=== PATIENT | male | born 1985 | race Caucasian/White ===

== ENCOUNTER → 2018-05-15 | Outpatient (REF) | payer OTHER ==
[2018-05-16 00:33] LABS: CHLAMYDIA DNA AMPLIFICATION POSITIVE (NEGATIVE); GC DNA AMPLIFICATION NEGATIVE (NEGATIVE)
== END ==
LOC: M LAB REF 09:39
DX: Z11.3 Encounter for screening for infections with a predominantly sexual mode of transmission (principal)

== ENCOUNTER → 2018-06-01 | Outpatient (REF) | payer OTHER ==
[2018-06-01 22:10] LABS: APPEARANCE, URINE CLEAR (CLEAR); BACTERIA, URINE AUTO NEGATIVE (NEGATIVE); BILIRUBIN, URINE AUTO NEGATIVE (NEGATIVE); BLOOD, URINE BLOOD NEGATIVE (NEGATIVE); COLOR, URINE YELLOW (YELLOW); GLUCOSE, URINE (UA) AUTO NEGATIVE (NEGATIVE); KETONE, URINE AUTO NEGATIVE (NEGATIVE); LEUKOCYTE ESTERASE, URINE AUTO NEGATIVE (NEGATIVE); MUCUS, URINE SMALL (NEGATIVE); NITRITE, URINE AUTO NEGATIVE (NEGATIVE); PROTEIN, URINE AUTO NEGATIVE (NEGATIVE); RBC, URINE AUTO 2 /HPF (0-3); SPECIFIC GRAVITY URINE AUTO 1.011 (1.002-1.035); SQUAMOUS EPITHELIAL CELL UR AU 0 /HPF (0-6); UROBILINOGEN, URINE AUTO 0.2 mg/dL (0.0-2.0); WBC, URINE AUTO 3 /HPF (0-3)
[2018-06-01 23:15] LABS: CHLAMYDIA DNA AMPLIFICATION NEGATIVE (NEGATIVE); GC DNA AMPLIFICATION NEGATIVE (NEGATIVE)
== END ==
LOC: M LAB REF 10:11
DX: N39.0 Urinary tract infection, site not specified (principal)

== ENCOUNTER → 2018-06-23 | Outpatient (CLI) | payer OTHER | LOC: M RAD 14:27 | DX: N50.819 Testicular pain, unspecified (principal); N43.3 Hydrocele, unspecified | CPT/HCPCS: 76870 ==

== ENCOUNTER → 2018-06-30 | Outpatient (REF) | payer OTHER ==
[2018-06-30 13:34] LABS: APPEARANCE, URINE CLEAR (CLEAR); BACTERIA, URINE AUTO 1+ (NEGATIVE); BILIRUBIN, URINE AUTO NEGATIVE (NEGATIVE); BLOOD, URINE BLOOD NEGATIVE (NEGATIVE); COLOR, URINE YELLOW (YELLOW); GLUCOSE, URINE (UA) AUTO NEGATIVE (NEGATIVE); KETONE, URINE AUTO NEGATIVE (NEGATIVE); LEUKOCYTE ESTERASE, URINE AUTO NEGATIVE (NEGATIVE); NITRITE, URINE AUTO NEGATIVE (NEGATIVE); PROTEIN, URINE AUTO NEGATIVE (NEGATIVE); RBC, URINE AUTO 0 /HPF (0-3); SQUAMOUS EPITHELIAL CELL UR AU 0 /HPF (0-6); UROBILINOGEN, URINE AUTO 0.2 mg/dL (0.0-2.0); WBC, URINE AUTO 0 /HPF (0-3)
[2018-06-30 14:41] LABS: CHLAMYDIA DNA AMPLIFICATION NEGATIVE (NEGATIVE); GC DNA AMPLIFICATION NEGATIVE (NEGATIVE)
== END ==
LOC: M SMT 13:03
DX: N50.819 Testicular pain, unspecified (principal)
CPT/HCPCS: 81001

== ENCOUNTER → 2018-07-28 | Outpatient (CLI) | payer OTHER ==
[~2018-07-28] MED LIST: ISOVUE-370 76% 100ML VIAL (Q9967) As Ordered
== END ==
LOC: M RAD 09:44
DX: N26.1 Atrophy of kidney (terminal) (principal); N50.812 Left testicular pain
CPT/HCPCS: Q9967

== ENCOUNTER → 2018-10-31 | Outpatient (CLI) | payer OTHER ==
--- NOTE | 2018-10-31 16:32 | REP ---
PARTIAL LUMBAR SPINE, THREE VIEWS:HISTORY: Lumbago. There is no fracture or subluxation. The L4-5 and L5-S1 intervertebral discs are decreased in height consistent with disc degeneration. IMPRESSION:Degenerative change as described above. Electronically Signed by Patrice Zheng MD 10/31/2018 04:36 P
== END ==
LOC: M RAD 12:41
PROVIDERS: ATTEND Anesthesiology
DX: M51.37 Other intervertebral disc degeneration, lumbosacral region (principal)

== ENCOUNTER → 2018-10-31 | Outpatient (CLI) | payer OTHER ==
--- NOTE | 2018-11-14 02:02 | ECWPNPC ---
PATIENT NAME: QUIN LIMA : 1985 GENDER: MALE VISIT DATE: 10/31/2018 DISCHARGE DATE: 10/31/18 1201 VISIT LOCKED DATE TIME: PHYSICIAN: DUY HANCOCK MD RESOURCE: DUY HANCOCK MD REASON FOR APPOINTMENT 1. TESTICULAR PAIN REFER FROM UROLOGY HISTORY OF PRESENT ILLNESS NEW PATIENT CONSULT: WHEN DID YOUR PAIN FIRST START? . BRIEFLY DESCRIBE HOW YOUR PAIN STARTED? . HOW DOES YOUR PAIN CHANGE WITH TIME? . DOES YOUR PAIN AWAKEN YOU FROM SLEEP? . HOW MANY HOURS OF SLEEP DO YOU NORMALLY GET? . ANY DIAGNOSTIC TESTING? . FACILITY WHERE TESTS WERE DONE? ____. PAIN TREATMENT TREATMENT YES CANCER HAVE YOU EVER HAD ANY TYPE OF CANCER?NO NO. PAIN SCREENING: PATIENT HAS A COMPLAINT OF ACUTE OR CHRONIC PAIN :YES 32 YEAR OLD MALE PATIENT WITH A HISTORY OF CHRONIC LOW BACK PAIN. THE PATIENT DESCRIBES THE PAIN ACHING, BURNING, SHARP, STABBING, TENDER, SORE, SHOOTING, AND CONTINUOUS WITH A PAIN SCORE OF 3-10/10 DEPENDING ON PHYSICAL ACTIVITY. THE PATIENT SAYS THAT HIS PAIN STARTS IN HIS LOW BACK AND RADIATES DOWN HIS LEFT LEG AND INTO HIS LEFT TESTICLE. THE PATIENT SAYS THAT HE HAS HAD THE PAIN IN HIS BACK FOR YEARS, BUT THE PAIN IN HIS LEG AND TESTICLE STARTED ABOUT 6 MONTHS AGO. THE PATIENT SAYS HE CURRENTLY USES IBUPROFEN TO AID IN PAIN RELIEF. PATIENT DENIES UNEXPLAINABLE WEIGHT LOSS, FEVER, CHILLS, NEW CHANGES ON HIS URINARY OR BOWEL CONTROL. FALL RISK SCREENING: SCREENING : NO FALLS IN THE PAST YEAR. GREEN INVENTORY: QUESTIONNAIRE ASSESSEDTBD SCORE VALUE CALCULATED TBD CURRENT MEDICATIONS TAKING IBUPROFEN 800 MG TABLET 1 TABLET WITH FOOD OR MILK NEEDED ORALLY THREE TIMES A DAY TAKING MULTIVITAMIN ADULT - TABLET ORALLY TAKING SILDENAFIL CITRATE 100 MG TABLET 1 TABLET NEEDED ORALLY ONCE A DAY MEDICATION LIST REVIEWED AND RECONCILED WITH THE PATIENT PAST MEDICAL HISTORY ACUTE PROSTATITIS LEFT SIDE 2 CYSTS TESTICAL HX HEART MURMUR A CHILD ALLERGIES SULFA (FOR ALLERGY USE ONLY): ANAPHYLAXIS - ALLERGY NEOSPORIN: ANAPHYLAXIS - ALLERGY SURGICAL HISTORY TOOTH EXTRACTION 07/2018 FAMILY HISTORY FATHER: ALIVE 51 YRS, HYPERTENSION MOTHER: ALIVE 54 YRS, HYPERTENSION PATERNAL GRAND FATHER: , LUNG CANCER PATERNAL GRAND MOTHER: , LUNG CANCER MATERNAL GRAND FATHER: ALIVE, PROSTATE CA MATERNAL GRAND MOTHER: 60'S YRS, DIABETES 1 SISTER(S) - HEALTHY. MATERNAL GRANDFATHER POSITIVE FOR PROSTATE CA. NO OTHER KNOWN FAMILY HISTORY OF ANY UROLOGICALLY RELATED DISEASES\/CANCERS. SOCIAL HISTORY GENERAL: TOBACCO USE ARE YOU A:FORMER SMOKER QUIT 4 YEARS AGO LUNG CANCER SCREENING SMOKING STATUS:FORMER SMOKER IS THE PATIENT BETWEEN THE AGE OF 55 AND 77?NO ALCOHOL SCREENING DID YOU HAVE A DRINK CONTAINING ALCOHOL IN THE PAST YEAR?YES HOW OFTEN DID YOU HAVE A DRINK CONTAINING ALCOHOL IN THE PAST YEAR?TWO TO FOUR TIMES A MONTH (2 POINTS) HOW MANY DRINKS DID YOU HAVE ON A TYPICAL DAY WHEN YOU WERE DRINKING IN THE PAST YEAR?3 OR 4 (1 POINT) HOW OFTEN DID YOU HAVE SIX OR MORE DRINKS ON ONE OCCASION IN THE PAST YEAR?NEVER (0 POINTS) POINTS3 INTERPRETATIONNEGATIVE RECREATIONAL DRUG USE DRUG USE?YES PT SMOKEW MARYJUANA ON A DAILY BASIS AND THC OIL HOW OFTEN AND HOW MUCH? 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 DIET: REGULAR. EXERCISE: DAILY. MARITAL STATUS: SINGLE. OTHERS AT HOME: NONE. MALE 6 MONTH RISK ASSESSMENT FOR STD MONOGOMOUS?YES PAIN CLINIC PFS, CLERGY, PUBLIC HEALTH REFERRALS PFS REFERRAL NEEDED?NO CLERGY REFERRAL NEEDED?NO PUBLIC HEALTH REFERRAL NEEDED?NO WAS THE PROVIDER NOTIFIED OF ANY PERTINENT INFO?NO HAS THE PATIENT BEEN EDUCATED REGARDING HIS/HER PLAN OF CARE?YES HAS THE PATIENT BEEN EDUCATED REGARDING PAIN, THE RISK FOR PAIN, THE IMPORTANCE OF EFFECTIVE PAIN MANAGEMENT, AND THE PAIN ASSESSMENT PROCESS?YES HOUSING: RENTS APARTMENT. ADVANCE DIRECTIVE ADVANCE DIRECTIVE DISCUSSED WITH PATIENT:YES HOSPITALIZATION/MAJOR DIAGNOSTIC PROCEDURE PNEUMONIA CHILD REVIEW OF SYSTEMS REVIEWED BY: PROVIDER: DUY HANCOCK MD . CONSTITUTIONAL: ANY CHANGE IN YOUR MEDICAL CONDITION? NO . CHILLS NO . FEVER NO . INFECTION: DO YOU HAVE NEW INFECTIONS? TREATED BACK IN FOR SEXUAL TRANSMITTED DISEASE/ SINCE TESTED NEGATIVE . DO YOU HAVE HISTORY OF MRSA? NO . MUSCULOSKELETAL: ANY NEW PATTERNS OF PAIN OR NUMBNESS? YES PAIN THAT WRAPS AROUND LEFT LEG AND ALSO HAS PAIN IN BASE OF BACK THAT RADIATES UP THE BACK . SYTEMIC LUPUS NO . GASTROENTEROLOGY: ANY NEW CHANGE IN BOWEL CONTROL? NO . BARRETTS ESOPHAGUS NO . CIRRHOSIS NO . HEPATITIS NO . LIVER FAILURE NO . ACID REFLUX NO . UNEXPLAINED WEIGHT LOSS NO . GENITOURINARY: ANY NEW CHANGE IN BLADDER CONTROL? AT TIMES HAS DIFFICULTY WITH URINATION . IS THERE A CHANCE YOU COULD BE ? NO . HEMATOLOGY/LYMPH: DO YOU TAKE ANY BLOOD THINNERS? (FOR EXAMPLE- COUMADIN, PLAVIX, AGGRENOX, PLATEL, PRADAXA, OR XARELTO) NO . WHEN WAS YOUR LAST DOSE? DATE: TIME: . LOW PLATELET COUNT NO . SICKLE CELL DISEASE NO . VON WILLIEBRANDS NO . FACTOR V LEIDEN NO . THALLASEMIA NO . ANEMIA NO . EASY BRUISING NO . NEUROLOGY: HAVE YOU FALLEN IN THE PAST 12 MONTHS? NO . ANY NEW EXTREMITY NUMBNESS OR WEAKNESS? NO . HEAD INJURY NO . DEMENTIA NO . CEREBRAL PALSY NO . MULTIPLE SCLEROSIS NO . DIZZINESS NO . HEADACHE NO . STROKES NO . VERTIGO NO . CARDIOLOGY: DO YOU HAVE A PACEMAKER OR DEFIBRILLATOR? NO . ANGINA NO . HEART ATTACK NO . HEART SURGERY NO . CONGESTIVE HEART FAILURE/FLUID OVERLOAD NO . CHEST PAIN NO . HIGH BLOOD PRESSURE NO . IRREGULAR HEART BEAT NO . RESPIRATORY: HAVE YOU BEEN SICK IN THE PAST WEEK? NO . FEVER NO . FLU LIKE SYMPTOMS? NO . CPAP NO . BYPAP NO . ASTHMA NO . EMPHYSEMA NO . CHRONIC LUNG DISEASES NO . SHORTNESS OF BREATH ON EXERTION NO . DO YOU USE ANY TYPE OF TOBACCO (SMOKE, SMOKELESS, CHEW)? NO . COUGH NO . SNORING NO . INTEGUMENTARY: DO YOU HAVE ANY RASHES OR OPEN SORES? NO . ALLERGIC/IMMUNO: ARE YOU ALLERGIC TO IV DYE? NO . ANY NEW ALLERGIES? NO . PSYCHIATRIC: DO YOU HAVE THOUGHTS OF HURTING YOURSELF OR SOMEONE ELSE? NO . ARE YOU ABUSED, NEGLECTED, OR IN AN UNSAFE ENVIRONMENT? NO . ENDOCRINOLOGY: ARE YOU DIABETIC? NO . THYROID DISORDER NO . OTHER: DO YOU NEED ANY PRESCRIPTIONS? NO . IF YES, PLEASE LIST: ____ . ANY NEW PROBLEMS WITH YOUR MEDICATIONS? NO . WHEN DID YOU LAST EAT? ____ . WHEN DID YOU LAST DRINK? ____ . WHAT DID YOU LAST DRINK? ____ . NAME OF PERSON DRIVING YOU HOME? ____ . DO YOU HAVE ANY OTHER QUESTIONS OR CONCERNS NO . VITAL SIGNS WT 171 LBS, HT 6', BMI 23.19 INDEX, BP 139/74 MM HG, HR 71 /MIN, RR 16 /MIN, TEMP 97.7 F, OXYGEN SAT % 96%, NA INITIALS SC 10:35, REVIEWED BY: KG. EXAMINATION GENERAL EXAMINATION: PATIENT IS ALERT O X 3 AND COOPERATIVE. LUNGS CLEAR, TO AUSCULTATION. HEART: NO MURMURS OR GALLOPS; FACIAL CRANIAL NERVES ARE GROSSLY NORMAL. GOOD SYMMETRY OF FACIAL MUSCLE MOVEMENT. NORMAL VISUAL JARQUIN. NORMAL GAIT. LEFT LEG IS WEAKER AT FLEXION. STRAIGHT LEG RAISE OF THE LEFT LEG IS POSITIVE AT 45 DEGREES FOR RADICULOPATHY. PRESENCE OF TRIGGER POINTS AND BANDS OF TISSUE WITH RESTRICTION OF MOVEMENT OF THE BACK. ASSESSMENTS MYALGIA, OTHER SITE - M79.18 (PRIMARY) LUMBAR RADICULOPATHY - M54.16 TREATMENT MYALGIA, OTHER SITE CLINICAL NOTES: WE DISCUSSED SEVERAL ISSUES WITH MR. LIMA'S PAIN MANAGEMENT CASE. I WILL ORDER A LUMBAR X-RAY TO GET A BETTER IDEA OF WHERE THE PATIENT'S PAIN COULD BE COMING FROM. I WOULD LIKE THE PATIENT TO START GABAPENTIN FOR THE NEUROPATHIC PAIN. THE PATIENT WILL FOLLOW UP WITH A NURSE PRACTITIONER IN 1 WEEK TO REVIEW THE RESULTS OF THE X-RAY. INSTRUCTIONS WERE GIVEN, QUESTIONS WERE ANSWERED, PATIENT REPORTS UNDERSTANDING AND AGREES WITH THE PLAN. I, LOVE MOFFETT, DOCUMENTED THE ABOVE INFORMATION ACTING A SCRIBE FOR DR. HANCOCK. I HAVE REVIEWED THE ABOVE DOCUMENT, WRITTEN BY LOVE CHAND AND I VERIFY THAT IT IS ACCURATE. DEAR DR. MCDANIELS:THANK YOU FOR YOUR KIND REFERRAL OF MR. LIMA. IF YOU WANT TO DISCUSS HIS CASE WITH ME PLEASE CALL ME AT THE PAIN CENTER AT [phone]. SINCERELY,DUY HANCOCK, [facility] . OTHERS START GABAPENTIN CAPSULE, 300 MG, 1 CAPSULE, ORALLY FOR PAIN, THREE TIMES A DAY, 30 DAY(S), 90 CAPSULE, REFILLS 1 PREVENTIVE MEDICINE PAIN CLINIC TEACHING: MEDICATIONS GABAPENTIN HANDOUT PRINTED, REVIEWED AND GIVEN TO PT. EM. PROCEDURE CODES FA211 ESTABILISHED PATIENT [facility] FACILITY CHARGE G8782 CURRENT MEDS W/DOSAGES DOCUMENTED G9368 PAIN ASSESS POS TOOL F/U PLAN DOC DISPOSITION & COMMUNICATION FOLLOW UP 1 WEEK (REASON: WITH SIOBHAN LOW BACK- REVIEW XRAY) ELECTRONICALLY SIGNED BY DUY HANCOCK MD, MD ON 11/13/2018 AT 09:16 AM EDT DISCLAIMER : THIS IS A VISIT SUMMARY EXTRACTED FROM THE [employer] CHART. IT IS NOT A COPY OF THE [employer] PROGRESS NOTE. SHAW
== END ==
LOC: M PAIN 10:45
PROVIDERS: ATTEND Anesthesiology
DX: M79.18 Myalgia, other site (principal); M54.16 Radiculopathy, lumbar region; N50.819 Testicular pain, unspecified; Z79.1 Long term (current) use of non-steroidal anti-inflammatories (NSAID); Z79.899 Other long term (current) drug therapy; Z88.2 Allergy status to sulfonamides; Z88.1 Allergy status to other antibiotic agents; Z87.891 Personal history of nicotine dependence

== ENCOUNTER → 2018-11-17 | Outpatient (CLI) | payer OTHER ==
--- NOTE | 2018-11-19 00:14 | ECWPNPC ---
PATIENT NAME: QUIN LIMA : 1985 GENDER: MALE VISIT DATE: 11/17/2018 DISCHARGE DATE: 11/17/18 1126 VISIT LOCKED DATE TIME: PHYSICIAN: SIOBHAN MCGILL RESOURCE: SIOBHAN MCGILL REASON FOR APPOINTMENT 1. TESTICULAR PAIN HISTORY OF PRESENT ILLNESS HISTORY OF PRESENT ILLNESS: PAIN THE PATIENT DESCRIBES THE PAIN... SEVERITY - PAIN SCORE OF6/10 32 YR OLD MALE WITH TESTICULAR PAIN.LAST SEEN IN PM BY DR. 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 HE DESCRIBES IT SOMETIMES ACHY AND BURNING AND PRESENT EVERY DAY.HE HAS A F/U WITH UROLOGY GROUP SOME TIME THIS MONTH.HE IS TAKING GABAPENTIN 300MG MAINLY AT NIGHT TIME AND SOMETIES IN THE EVENING.HE SAYS HE DOES NOT TAKE IT IN THE MORNINGS HE FEELS TIRED WITH IT AND DOES NOT IT AFFECTING HIS WORK. FALL RISK SCREENING: SCREENING :NO FALLS REPORTED IN THE LAST YEAR CURRENT MEDICATIONS TAKING GABAPENTIN 300 MG CAPSULE 1 CAPSULE ORALLY FOR PAIN THREE TIMES A DAY TAKING IBUPROFEN 800 MG TABLET 1 TABLET WITH FOOD OR MILK NEEDED ORALLY THREE TIMES A DAY TAKING MULTIVITAMIN ADULT - TABLET ORALLY TAKING SILDENAFIL CITRATE 100 MG TABLET 1 TABLET NEEDED ORALLY ONCE A DAY MEDICATION LIST REVIEWED AND RECONCILED WITH THE PATIENT PAST MEDICAL HISTORY ACUTE PROSTATITIS LEFT SIDE 2 CYSTS TESTICAL HX HEART MURMUR A CHILD ALLERGIES SULFA (FOR ALLERGY USE ONLY): ANAPHYLAXIS - ALLERGY NEOSPORIN: ANAPHYLAXIS - ALLERGY SURGICAL HISTORY TOOTH EXTRACTION 07/2018 FAMILY HISTORY FATHER: ALIVE 51 YRS, HYPERTENSION MOTHER: ALIVE 54 YRS, HYPERTENSION PATERNAL GRAND FATHER: , LUNG CANCER PATERNAL GRAND MOTHER: , LUNG CANCER MATERNAL GRAND FATHER: ALIVE, PROSTATE CA MATERNAL GRAND MOTHER: 60'S YRS, DIABETES 1 SISTER(S) - HEALTHY. MATERNAL GRANDFATHER POSITIVE FOR PROSTATE CA. NO OTHER KNOWN FAMILY HISTORY OF ANY UROLOGICALLY RELATED DISEASES\\\/CANCERS. SOCIAL HISTORY GENERAL: TOBACCO USE ARE YOU A:FORMER SMOKER QUIT 4 YEARS AGO LATEX QUESTIONNAIRE LATEX ALLERGY : HAVE YOU EVER DEVELOPED ANY TYPE OF REACTION AFTER HANDLING LATEX PRODUCTS SUCH RUBBER GLOVES, CONDOMS, DIAPHRAGMS, BALLOONS, SOCKS, OR UNDERWEAR?NO LATEX ALLERGY : HAVE YOU EVER DEVELOPED ANY TYPE OF REACTION DURING OR AFTER DENTAL APPOINTMENT, VAGINAL/RECTAL EXAMINATION, SURGICAL PROCEDURE, OR ANY OTHER EXPOSURE?NO LATEX RISK : HAVE YOU EVER HAD ANY DIFFICULTY BREATHING OR HIVES AFTER EATING OR HANDLING ANY FRUITS, OR VEGETABLES; SUCH KIWI, BANANAS, STONE FRUITS, OR CHESTNUTSNO LATEX RISK : DO YOU HAVE A PREVIOUS PERSONAL HISTORY OF MORE THAN NINE SURGERIES, SPINA BIFIDA, OR REPEATED CATHERTIZATIONS? NO LATEX RISK : ARE YOU FREQUENTLY EXPOSED TO LATEX PRODUCTS IN YOUR OCCUPATION?YES DATE ASKED : 11/17/2018 ALCOHOL SCREENING DID YOU HAVE A DRINK CONTAINING ALCOHOL IN THE PAST YEAR?YES HOW OFTEN DID YOU HAVE A DRINK CONTAINING ALCOHOL IN THE PAST YEAR?TWO TO FOUR TIMES A MONTH (2 POINTS) HOW OFTEN DID YOU HAVE SIX OR MORE DRINKS ON ONE OCCASION IN THE PAST YEAR?NEVER (0 POINTS) POINTS3 HOW MANY DRINKS DID YOU HAVE ON A TYPICAL DAY WHEN YOU WERE DRINKING IN THE PAST YEAR?3 OR 4 (1 POINT) INTERPRETATIONNEGATIVE RECREATIONAL DRUG USE DRUG USE?YES PT SMOKEW MARYJUANA ON A DAILY BASIS AND THC OIL HOW OFTEN AND HOW MUCH? DAILY CAFFEINE CAFFEINE USE?NO WORSHIP [id number] SABIANIST LANGUAGE LANGUAGES SPOKEN:OCCITAN EDUCATION LEVEL OF EDUCATION:HIGH SCHOOL LEARNING BARRIERS / SPECIAL NEEDS BARRIERS TO LEARNING? NO, HEARING IMPAIRED? YES EKUK BILATERAL, VISION IMPAIRED? YES, : CORRECTIVE LENSES, READINESS TO LEARN? YES, LEARNING PREFERENCES? NO. DOMESTIC VIOLENCE DO YOU FEEL SAFE IN YOUR ENVIRONMENT?YES OCCUPATION: [employer]. DIET: REGULAR. EXERCISE: DAILY. MARITAL STATUS: SINGLE. PAIN CLINIC PFS, CLERGY, PUBLIC HEALTH REFERRALS PFS REFERRAL NEEDED?NO CLERGY REFERRAL NEEDED?NO PUBLIC HEALTH REFERRAL NEEDED?NO WAS THE PROVIDER NOTIFIED OF ANY PERTINENT INFO?NO HAS THE PATIENT BEEN EDUCATED REGARDING HIS/HER PLAN OF CARE?YES HAS THE PATIENT BEEN EDUCATED REGARDING PAIN, THE RISK FOR PAIN, THE IMPORTANCE OF EFFECTIVE PAIN MANAGEMENT, AND THE PAIN ASSESSMENT PROCESS?YES ADVANCE DIRECTIVE ADVANCE DIRECTIVE DISCUSSED WITH PATIENT:YES DECLINED HCP INFORMATION. REVIEWED WITH PATIENT 11/17/18 Poncho MORRIS. HOSPITALIZATION/MAJOR DIAGNOSTIC PROCEDURE PNEUMONIA CHILD REVIEW OF SYSTEMS REVIEWED BY: PROVIDER: RIVERA Michele CONSTITUTIONAL: ANY CHANGE IN YOUR MEDICAL CONDITION? NO . CHILLS NO . FEVER NO . INFECTION: DO YOU HAVE NEW INFECTIONS? NO . DO YOU HAVE HISTORY OF MRSA? NO . MUSCULOSKELETAL: ANY NEW PATTERNS OF PAIN OR NUMBNESS? NO . GASTROENTEROLOGY: ANY NEW CHANGE IN BOWEL CONTROL? NO . GENITOURINARY: ANY NEW CHANGE IN BLADDER CONTROL? NO . IS THERE A CHANCE YOU COULD BE ? NO . HEMATOLOGY/LYMPH: DO YOU TAKE ANY BLOOD THINNERS? (FOR EXAMPLE- COUMADIN, PLAVIX, AGGRENOX, PLATEL, PRADAXA, OR XARELTO) NO . WHEN WAS YOUR LAST DOSE? DATE: TIME: . NEUROLOGY: HAVE YOU FALLEN IN THE PAST 12 MONTHS? YES, STATES PRIOR TO LAST VISIT, DISCUSSED AT LAST VISIT . ANY NEW EXTREMITY NUMBNESS OR WEAKNESS? NO . CARDIOLOGY: DO YOU HAVE A PACEMAKER OR DEFIBRILLATOR? NO . RESPIRATORY: HAVE YOU BEEN SICK IN THE PAST WEEK? NO . FEVER NO . FLU LIKE SYMPTOMS? NO . COUGH NO . INTEGUMENTARY: DO YOU HAVE ANY RASHES OR OPEN SORES? NO . ALLERGIC/IMMUNO: ARE YOU ALLERGIC TO IV DYE? NO . ANY NEW ALLERGIES? NO . PSYCHIATRIC: DO YOU HAVE THOUGHTS OF HURTING YOURSELF OR SOMEONE ELSE? NO . ARE YOU ABUSED, NEGLECTED, OR IN AN UNSAFE ENVIRONMENT? NO . ENDOCRINOLOGY: ARE YOU DIABETIC? NO . OTHER: DO YOU NEED ANY PRESCRIPTIONS? NO . IF YES, PLEASE LIST: ____ . ANY NEW PROBLEMS WITH YOUR MEDICATIONS? NO . WHEN DID YOU LAST EAT? ____ . WHEN DID YOU LAST DRINK? ____ . WHAT DID YOU LAST DRINK? ____ . NAME OF PERSON DRIVING YOU HOME? ____ . DO YOU HAVE ANY OTHER QUESTIONS OR CONCERNS YES, JUST WANTS TO KNOW WHAT'S CAUSING ALL THESE PROBLEMS . VITAL SIGNS WT 170 LBS, HT 6', BMI 23.05 INDEX, BP 126/68 MM HG, HR 65 /MIN, RR 16 /MIN, TEMP 98.6 F, OXYGEN SAT % 99%, SAFE IN ENV? (Y/N) YES, NA INITIALS SC 10:34, REVIEWED BY: ALEXANDRA. EXAMINATION GENERAL EXAMINATION: GENERAL APPEARANCE:NO ACUTE DISTRESS, WELL NOURISHED AND HYDRATED. PSYCHAPPROPRIATE MOOD AND AFFECT . LUNGS:CLEAR TO AUSCULTATION BILATERALLY, NO WHEEZES, RHONCHI, RALES. HEART:NO MURMURS, REGULAR RATE AND RHYTHM. BACK: NO TENDERNESS, NO CVA TENDERNESS. UNABLE TO WALKON TOES, SEEMS A LITTLE UNSTEADY., SLR POSITIVE LEFT SIDE.. ASSESSMENTS LUMBAR RADICULOPATHY - M54.16 (PRIMARY) TESTICLE PAIN - N50.819 TREATMENT LUMBAR RADICULOPATHY [facility] MRI SPINE, L.S. WITHOUT [id number] CLINICAL NOTES: PLAN: MRI LUMBAR SPINE AND F/U IN 4 WEEKS. PROCEDURE CODES FA211 ESTABILISHED PATIENT [facility] FACILITY CHARGE DISPOSITION & COMMUNICATION FOLLOW UP 4 WEEKS ELECTRONICALLY SIGNED BY TIFFANIE HOPSON ON 11/18/2018 AT 08:47 AM EDT DISCLAIMER : THIS IS A VISIT SUMMARY EXTRACTED FROM THE [employer] CHART. IT IS NOT A COPY OF THE [employer] PROGRESS NOTE. SHAW
== END ==
LOC: M PAIN 10:30
PROVIDERS: ATTEND Nurse Practitioner Family
DX: M54.16 Radiculopathy, lumbar region (principal); N50.819 Testicular pain, unspecified; Z87.891 Personal history of nicotine dependence; Z88.1 Allergy status to other antibiotic agents; Z88.2 Allergy status to sulfonamides; Z79.899 Other long term (current) drug therapy

== ENCOUNTER → 2018-12-19 | Outpatient (REF) | payer OTHER ==
[2018-12-19 20:06] LABS: CHLAMYDIA DNA AMPLIFICATION NEGATIVE (NEGATIVE); GC DNA AMPLIFICATION NEGATIVE (NEGATIVE)
== END ==
LOC: M LAB REF 16:27
PROVIDERS: ATTEND Physician Assistant Medical
DX: Z11.3 Encounter for screening for infections with a predominantly sexual mode of transmission (principal)

== ENCOUNTER → 2018-12-23 | Outpatient (REF) | payer OTHER ==
[2018-12-23 14:30] LABS: APPEARANCE, URINE CLEAR (CLEAR); BACTERIA, URINE AUTO 1+ (NEGATIVE); BILIRUBIN, URINE AUTO NEGATIVE (NEGATIVE); BLOOD, URINE BLOOD NEGATIVE (NEGATIVE); CALCIUM OXALATE CRYSTALS SMALL; COLOR, URINE YELLOW (YELLOW); GLUCOSE, URINE (UA) AUTO NEGATIVE (NEGATIVE); KETONE, URINE AUTO NEGATIVE (NEGATIVE); LEUKOCYTE ESTERASE, URINE AUTO TRACE (NEGATIVE); NITRITE, URINE AUTO NEGATIVE (NEGATIVE); PROTEIN, URINE AUTO NEGATIVE (NEGATIVE); RBC, URINE AUTO 1 /HPF (0-3); SPECIFIC GRAVITY URINE AUTO 1.015 (1.002-1.035); SQUAMOUS EPITHELIAL CELL UR AU 0 /HPF (0-6); UROBILINOGEN, URINE AUTO 0.2 mg/dL (0.0-2.0); WBC, URINE AUTO 11 /HPF (0-3)
== END ==
LOC: M LAB REF 13:13
PROVIDERS: ATTEND Physician Assistant Medical
DX: N39.0 Urinary tract infection, site not specified (principal)

== ENCOUNTER → 2019-02-12 | Outpatient (CLI) | payer OTHER ==
--- NOTE | 2019-03-03 01:48 | ECWPNPC ---
PATIENT NAME: QUIN LIMA : 1985 GENDER: MALE VISIT DATE: 02/12/2019 DISCHARGE DATE: 02/12/19 1056 VISIT LOCKED DATE TIME: PHYSICIAN: FIDELIA MORALES RESOURCE: FIDELIA MORALES REASON FOR APPOINTMENT 1. TESTICULAR PAIN HISTORY OF PRESENT ILLNESS HISTORY OF PRESENT ILLNESS: HERE FOR F/U OF CHRONIC TESTICULAR PAIN.RATING PAIN VAS 4/10.FINDING GABAPENTIN HELPFUL AT REDUCING PAIN.DISCUSSED MEDICATION AND TREATMENT OPTIONS. PAIN THE PATIENT DESCRIBES THE PAIN... FALL RISK SCREENING: SCREENING :NO FALLS REPORTED IN THE LAST YEAR CURRENT MEDICATIONS TAKING GABAPENTIN 300 MG CAPSULE 1 CAPSULE ORALLY FOR PAIN THREE TIMES A DAY TAKING IBUPROFEN 800 MG TABLET 1 TABLET WITH FOOD OR MILK NEEDED ORALLY THREE TIMES A DAY TAKING MULTIVITAMIN ADULT - TABLET ORALLY TAKING SILDENAFIL CITRATE 100 MG TABLET 1 TABLET NEEDED ORALLY ONCE A DAY MEDICATION LIST REVIEWED AND RECONCILED WITH THE PATIENT PAST MEDICAL HISTORY ACUTE PROSTATITIS LEFT SIDE 2 CYSTS TESTICAL HX HEART MURMUR A CHILD PER PAIN CLINIC PTS MISSING PORTION CARTILAGE IN SPINE ALLERGIES SULFA (FOR ALLERGY USE ONLY): ANAPHYLAXIS - ALLERGY NEOSPORIN: ANAPHYLAXIS - ALLERGY SURGICAL HISTORY TOOTH EXTRACTION 07/2018 TOOTH BRIDGES IMPLANTED 11/2018 FAMILY HISTORY FATHER: ALIVE 51 YRS, HYPERTENSION MOTHER: ALIVE 54 YRS, HYPERTENSION PATERNAL GRAND FATHER: , LUNG CANCER PATERNAL GRAND MOTHER: , LUNG CANCER MATERNAL GRAND FATHER: ALIVE, PROSTATE CA MATERNAL GRAND MOTHER: 60'S YRS, DIABETES 1 SISTER(S) - HEALTHY. MATERNAL GRANDFATHER POSITIVE FOR PROSTATE CA. NO OTHER KNOWN FAMILY HISTORY OF ANY UROLOGICALLY RELATED DISEASES\\\/CANCERS. SOCIAL HISTORY GENERAL: TOBACCO USE ARE YOU A:FORMER SMOKER QUIT 4 YEARS AGO EDUCATION LEVEL OF EDUCATION:HIGH SCHOOL DIET: REGULAR. LANGUAGE LANGUAGES SPOKEN:TURKMEN DOMESTIC VIOLENCE DO YOU FEEL SAFE IN YOUR ENVIRONMENT?YES RECREATIONAL DRUG USE DRUG USE?YES PT SMOKEW MARYJUANA ON A DAILY BASIS AND THC OIL HOW OFTEN AND HOW MUCH? DAILY EXERCISE: DAILY. LEARNING BARRIERS / SPECIAL NEEDS BARRIERS TO LEARNING? NO, HEARING IMPAIRED? YES SUN'AQ BILATERAL, VISION IMPAIRED? YES, : CORRECTIVE LENSES, READINESS TO LEARN? YES, LEARNING PREFERENCES? NO. PAIN CLINIC PFS, CLERGY, PUBLIC HEALTH REFERRALS PFS REFERRAL NEEDED?NO CLERGY REFERRAL NEEDED?NO PUBLIC HEALTH REFERRAL NEEDED?NO WAS THE PROVIDER NOTIFIED OF ANY PERTINENT INFO?NO HAS THE PATIENT BEEN EDUCATED REGARDING HIS/HER PLAN OF CARE?YES HAS THE PATIENT BEEN EDUCATED REGARDING PAIN, THE RISK FOR PAIN, THE IMPORTANCE OF EFFECTIVE PAIN MANAGEMENT, AND THE PAIN ASSESSMENT PROCESS?YES LATEX QUESTIONNAIRE LATEX ALLERGY : HAVE YOU EVER DEVELOPED ANY TYPE OF REACTION AFTER HANDLING LATEX PRODUCTS SUCH RUBBER GLOVES, CONDOMS, DIAPHRAGMS, BALLOONS, SOCKS, OR UNDERWEAR?NO LATEX ALLERGY : HAVE YOU EVER DEVELOPED ANY TYPE OF REACTION DURING OR AFTER DENTAL APPOINTMENT, VAGINAL/RECTAL EXAMINATION, SURGICAL PROCEDURE, OR ANY OTHER EXPOSURE?NO LATEX RISK : HAVE YOU EVER HAD ANY DIFFICULTY BREATHING OR HIVES AFTER EATING OR HANDLING ANY FRUITS, OR VEGETABLES; SUCH KIWI, BANANAS, STONE FRUITS, OR CHESTNUTSNO LATEX RISK : DO YOU HAVE A PREVIOUS PERSONAL HISTORY OF MORE THAN NINE SURGERIES, SPINA BIFIDA, OR REPEATED CATHERTIZATIONS? NO LATEX RISK : ARE YOU FREQUENTLY EXPOSED TO LATEX PRODUCTS IN YOUR OCCUPATION?YES DATE ASKED : 11/17/2018 CAFFEINE CAFFEINE USE?NO ADVANCE DIRECTIVE ADVANCE DIRECTIVE DISCUSSED WITH PATIENT:YES DECLINED HCP INFORMATION. TAOIST [id number] RASTAFARIAN MARITAL STATUS: SINGLE. ALCOHOL SCREENING DID YOU HAVE A DRINK CONTAINING ALCOHOL IN THE PAST YEAR?YES HOW OFTEN DID YOU HAVE A DRINK CONTAINING ALCOHOL IN THE PAST YEAR?TWO TO FOUR TIMES A MONTH (2 POINTS) HOW OFTEN DID YOU HAVE SIX OR MORE DRINKS ON ONE OCCASION IN THE PAST YEAR?NEVER (0 POINTS) POINTS3 HOW MANY DRINKS DID YOU HAVE ON A TYPICAL DAY WHEN YOU WERE DRINKING IN THE PAST YEAR?3 OR 4 (1 POINT) INTERPRETATIONNEGATIVE OCCUPATION: [employer]. REVIEWED WITH PATIENT 11/17/18 Poncho JS. HOSPITALIZATION/MAJOR DIAGNOSTIC PROCEDURE PNEUMONIA CHILD REVIEW OF SYSTEMS REVIEWED BY: PROVIDER: FIDELIA MORENO . CONSTITUTIONAL: ANY CHANGE IN YOUR MEDICAL CONDITION? NO . CHILLS NO . FEVER NO . INFECTION: DO YOU HAVE NEW INFECTIONS? NO . DO YOU HAVE HISTORY OF MRSA? NO . MUSCULOSKELETAL: ANY NEW PATTERNS OF PAIN OR NUMBNESS? YES, PAIN AND NUMBNESS HAS IMPROVED FROM CONSTANT TO INTERMITTENT . GASTROENTEROLOGY: ANY NEW CHANGE IN BOWEL CONTROL? NO . GENITOURINARY: ANY NEW CHANGE IN BLADDER CONTROL? NO . IS THERE A CHANCE YOU COULD BE ? NO . HEMATOLOGY/LYMPH: DO YOU TAKE ANY BLOOD THINNERS? (FOR EXAMPLE- COUMADIN, PLAVIX, AGGRENOX, PLATEL, PRADAXA, OR XARELTO) NO . WHEN WAS YOUR LAST DOSE? DATE: TIME: . NEUROLOGY: HAVE YOU FALLEN IN THE PAST 12 MONTHS? YES, PRIOR TO LAST VISIT . ANY NEW EXTREMITY NUMBNESS OR WEAKNESS? NO . CARDIOLOGY: DO YOU HAVE A PACEMAKER OR DEFIBRILLATOR? NO . RESPIRATORY: HAVE YOU BEEN SICK IN THE PAST WEEK? NO . FEVER NO . FLU LIKE SYMPTOMS? NO . COUGH NO . INTEGUMENTARY: DO YOU HAVE ANY RASHES OR OPEN SORES? NO . ALLERGIC/IMMUNO: ARE YOU ALLERGIC TO IV DYE? NO . ANY NEW ALLERGIES? NO . PSYCHIATRIC: DO YOU HAVE THOUGHTS OF HURTING YOURSELF OR SOMEONE ELSE? NO . ARE YOU ABUSED, NEGLECTED, OR IN AN UNSAFE ENVIRONMENT? NO . ENDOCRINOLOGY: ARE YOU DIABETIC? NO . OTHER: DO YOU NEED ANY PRESCRIPTIONS? YES, JONATHAN . IF YES, PLEASE LIST: ____ . ANY NEW PROBLEMS WITH YOUR MEDICATIONS? NO . WHEN DID YOU LAST EAT? ____ . WHEN DID YOU LAST DRINK? ____ . WHAT DID YOU LAST DRINK? ____ . NAME OF PERSON DRIVING YOU HOME? ____ . DO YOU HAVE ANY OTHER QUESTIONS OR CONCERNS NO . VITAL SIGNS WT 151.4 LBS, HT 6', BMI 20.53 INDEX, BP 119/74 MM HG, HR 52 /MIN, RR 16 /MIN, TEMP 98.3 F, OXYGEN SAT % 99%, NA INITIALS SC 10:10, REVIEWED BY: JAYASHREE. EXAMINATION GENERAL EXAMINATION: GENERALAWAKE,ALERT ,PLEAASANT . PSYCHAFFECT NORMAL . LUNGS:LUNG JARQUIN ARE CLEAR TO AUSCULTATION BILATERALLY. GOOD MOVEMENT OF AIR . HEART:S1, S2 IN A REGULAR RATE AND RHYTHM. NO SIGNIFICANT MURMURS, RUBS OR GALLOPS NOTED . ASSESSMENTS TESTICLE PAIN - N50.819 (PRIMARY) TREATMENT TESTICLE PAIN REFILL IBUPROFEN TABLET, 800 MG, 1 TABLET WITH FOOD OR MILK NEEDED, ORALLY, THREE TIMES A DAY, 30 DAYS, 90 TABLET, REFILLS 2 REFILL GABAPENTIN CAPSULE, 300 MG, 1 CAPSULE, ORALLY FOR PAIN, THREE TIMES A DAY, 30 DAY(S), 90 CAPSULE, REFILLS 2 NOTES: CONTINUE MEDICATION THIS SEEMS TO BE HELPING.REVIEWED L/S XRAY.SHOWING MILD DEGENERATIVE CHANGES. PROCEDURE CODES FA211 ESTABILISHED PATIENT [facility] CHARGE DISPOSITION & COMMUNICATION FOLLOW UP 3 MONTHS ELECTRONICALLY SIGNED BY TIFFANIE GUADARRAMA ON 03/02/2019 AT 04:14 PM EDT DISCLAIMER : THIS IS A VISIT SUMMARY EXTRACTED FROM THE [employer] CHART. IT IS NOT A COPY OF THE [employer] PROGRESS NOTE. SHAW
== END ==
LOC: M PAIN 10:00
PROVIDERS: ATTEND Nurse Practitioner Family
DX: N50.819 Testicular pain, unspecified (principal); Z87.891 Personal history of nicotine dependence; N41.0 Acute prostatitis; N44.2 Benign cyst of testis; Z79.899 Other long term (current) drug therapy; Z88.2 Allergy status to sulfonamides; Z88.8 Allergy status to other drugs, medicaments and biological substances

== ENCOUNTER → 2019-03-26 | Outpatient (REF) | payer OTHER ==
[2019-03-26 19:38] LABS: APPEARANCE, URINE CLEAR (CLEAR); BACTERIA, URINE AUTO NEGATIVE (NEGATIVE); BILIRUBIN, URINE AUTO NEGATIVE (NEGATIVE); BLOOD, URINE BLOOD NEGATIVE (NEGATIVE); COLOR, URINE YELLOW (YELLOW); GLUCOSE, URINE (UA) AUTO NEGATIVE (NEGATIVE); KETONE, URINE AUTO NEGATIVE (NEGATIVE); LEUKOCYTE ESTERASE, URINE AUTO NEGATIVE (NEGATIVE); MUCUS, URINE SMALL (NEGATIVE); NITRITE, URINE AUTO NEGATIVE (NEGATIVE); PROTEIN, URINE AUTO NEGATIVE (NEGATIVE); RBC, URINE AUTO 0 /HPF (0-3); SPECIFIC GRAVITY URINE AUTO 1.013 (1.002-1.035); SQUAMOUS EPITHELIAL CELL UR AU 0 /HPF (0-6); UROBILINOGEN, URINE AUTO 0.2 mg/dL (0.0-2.0); WBC, URINE AUTO 0 /HPF (0-3)
[2019-03-26 20:18] LABS: BASO # 0.1 10^3/uL (0.0-0.2); BASO % 0.7 % (0.0-1.0); EOS % 0.1 % (0.0-3.0); HEMOGLOBIN 16.7 g/dl (13.5-17.5); LYMPH # 1.4 10^3/uL (1.5-4.5); LYMPH % 16.6 % (24.0-44.0); MEAN CORPUSCULAR HEMOGLOBIN 30.8 pg (27.0-33.0); MEAN CORPUSCULAR HGB CONC 34.1 g/dl (32.0-36.5); MEAN CORPUSCULAR VOLUME 90.4 fl (80.0-96.0); MONO # 0.6 10^3/uL (0.0-0.8); MONO % 7.2 % (0.0-5.0); NEUTROPHILS # 6.4 10^3/uL (1.8-7.7); NEUTROPHILS % 75.2 % (36.0-66.0); PLATELET COUNT, AUTOMATED 157 10^3/uL (150-450); RED BLOOD COUNT 5.42 10^6/uL (4.30-6.10); WHITE BLOOD COUNT 8.6 10^3/uL (4.0-10.0)
[2019-03-26 20:35] LABS: HEMOGLOBIN A1c 5.5 %
[2019-03-26 20:45] LABS: ALBUMIN 4.7 GM/DL (3.2-5.2); ALT/SGPT 25 U/L (12-78); BILIRUBIN,TOTAL 0.8 MG/DL (0.2-1.0); BLOOD UREA NITROGEN 17 MG/DL (7-18); CALCIUM LEVEL 9.7 MG/DL (8.5-10.1); CARBON DIOXIDE LEVEL 26 MEQ/L (21-32); CHLORIDE LEVEL 108 MEQ/L (98-107); CHOLESTEROL LEVEL 130 MG/DL (<200); CHOLESTEROL RISK RATIO 2.096 (<5); CREATININE FOR GFR 1.24 MG/DL (0.70-1.30); FERRITIN 96 NG/ML (26-388); FREE T4 0.99 NG/DL (0.76-1.46); GLOMERULAR FILTRATION RATE > 60.0 (>60); GLUCOSE, FASTING 96 MG/DL (70-100); HDL CHOLESTEROL 62 MG/DL (>40); IRON (FE) 68 UG/DL (65-175); LDL CHOLESTEROL 56 MG/DL (<100); NON-HDL-C 68 MG/DL; POTASSIUM SERUM 4.7 MEQ/L (3.5-5.1); SODIUM LEVEL 141 MEQ/L (136-145); TOTAL PROTEIN 7.7 GM/DL (6.4-8.2); TRIGLYCERIDES LEVEL 58 MG/DL (<150)
[2019-03-26 20:47] LABS: TOTAL 25(OH) VITAMIN D 30.4 NG/ML (30.0-100.0)
[2019-03-26 20:48] LABS: VITAMIN B12 LEVEL 592 PG/ML (247-911)
== END ==
LOC: M LAB REF 17:04
PROVIDERS: ATTEND Nurse Practitioner Family
DX: Z00.00 Encounter for general adult medical examination without abnormal findings (principal)

== ENCOUNTER → 2019-07-23 | Outpatient (CLI) | payer OTHER, MEDICAID ==
--- NOTE | 2019-07-25 07:53 | ECWPNPC ---
PATIENT NAME: QUIN LIMA : 1985 GENDER: MALE VISIT DATE: 07/23/2019 DISCHARGE DATE: 07/23/1916 VISIT LOCKED DATE TIME: PHYSICIAN: RAYMON DENG RESOURCE: RAYMON DENG REASON FOR APPOINTMENT 1. 3 MONTHS HISTORY OF PRESENT ILLNESS HISTORY OF PRESENT ILLNESS: PAIN THE PATIENT DESCRIBES THE PAIN... 33-YEAR-OLD MALE IN FOR CHRONIC PAIN FOLLOW-UP. HE RATES HIS PAIN CURRENTLY AT A 5 OUT OF 10 AND DESCRIBES IT ACHING, BURNING, SORE, TENDER, SHARP, AND SHOOTING. HE WAS STARTED ON GABAPENTIN AND IBUPROFEN TO HELP WITH HIS PAIN AND ADMITS TODAY THAT THIS HAS BEEN HELPFUL. HE IS REQUESTING REFERRAL TO THE [facility]. FALL RISK SCREENING: SCREENING :NO FALLS REPORTED IN THE LAST YEAR CURRENT MEDICATIONS TAKING MULTIVITAMIN ADULT - TABLET ORALLY TAKING SILDENAFIL CITRATE 100 MG TABLET 1 TABLET NEEDED ORALLY ONCE A DAY TAKING IBUPROFEN 800 MG TABLET 1 TABLET WITH FOOD OR MILK NEEDED ORALLY THREE TIMES A DAY TAKING GABAPENTIN 300 MG CAPSULE 1 CAPSULE ORALLY FOR PAIN THREE TIMES A DAY MEDICATION LIST REVIEWED AND RECONCILED WITH THE PATIENT PAST MEDICAL HISTORY ACUTE PROSTATITIS LEFT SIDE 2 CYSTS TESTICAL HX HEART MURMUR A CHILD PER PAIN CLINIC PTS MISSING PORTION CARTILAGE IN SPINE ALLERGIES SULFA (FOR ALLERGY USE ONLY): ANAPHYLAXIS - ALLERGY NEOSPORIN: ANAPHYLAXIS - ALLERGY SURGICAL HISTORY TOOTH EXTRACTION 07/2018 TOOTH BRIDGES IMPLANTED 11/2018 FAMILY HISTORY FATHER: ALIVE 51 YRS, HYPERTENSION MOTHER: ALIVE 54 YRS, HYPERTENSION PATERNAL GRAND FATHER: , LUNG CANCER PATERNAL GRAND MOTHER: , LUNG CANCER MATERNAL GRAND FATHER: ALIVE, PROSTATE CA MATERNAL GRAND MOTHER: 60'S YRS, DIABETES 1 SISTER(S) - HEALTHY. MATERNAL GRANDFATHER POSITIVE FOR PROSTATE CA. NO OTHER KNOWN FAMILY HISTORY OF ANY UROLOGICALLY RELATED DISEASES\\\/CANCERS. SOCIAL HISTORY GENERAL: TOBACCO USE ARE YOU A:FORMER SMOKER QUIT 4 YEARS AGO EDUCATION LEVEL OF EDUCATION:HIGH SCHOOL DIET: REGULAR. LANGUAGE LANGUAGES SPOKEN:LAO DOMESTIC VIOLENCE DO YOU FEEL SAFE IN YOUR ENVIRONMENT?YES RECREATIONAL DRUG USE DRUG USE?YES PT SMOKEW MARYJUANA ON A DAILY BASIS AND THC OIL HOW OFTEN AND HOW MUCH? DAILY EXERCISE: DAILY. LEARNING BARRIERS / SPECIAL NEEDS BARRIERS TO LEARNING? NO, HEARING IMPAIRED? YES KLAMATH BILATERAL, VISION IMPAIRED? YES, : CORRECTIVE LENSES, READINESS TO LEARN? YES, LEARNING PREFERENCES? NO. PAIN CLINIC PFS, CLERGY, PUBLIC HEALTH REFERRALS PFS REFERRAL NEEDED?NO CLERGY REFERRAL NEEDED?NO PUBLIC HEALTH REFERRAL NEEDED?NO WAS THE PROVIDER NOTIFIED OF ANY PERTINENT INFO?NO HAS THE PATIENT BEEN EDUCATED REGARDING HIS/HER PLAN OF CARE?YES HAS THE PATIENT BEEN EDUCATED REGARDING PAIN, THE RISK FOR PAIN, THE IMPORTANCE OF EFFECTIVE PAIN MANAGEMENT, AND THE PAIN ASSESSMENT PROCESS?YES LATEX QUESTIONNAIRE LATEX ALLERGY : HAVE YOU EVER DEVELOPED ANY TYPE OF REACTION AFTER HANDLING LATEX PRODUCTS SUCH RUBBER GLOVES, CONDOMS, DIAPHRAGMS, BALLOONS, SOCKS, OR UNDERWEAR?NO LATEX ALLERGY : HAVE YOU EVER DEVELOPED ANY TYPE OF REACTION DURING OR AFTER DENTAL APPOINTMENT, VAGINAL/RECTAL EXAMINATION, SURGICAL PROCEDURE, OR ANY OTHER EXPOSURE?NO LATEX RISK : HAVE YOU EVER HAD ANY DIFFICULTY BREATHING OR HIVES AFTER EATING OR HANDLING ANY FRUITS, OR VEGETABLES; SUCH KIWI, BANANAS, STONE FRUITS, OR CHESTNUTSNO LATEX RISK : DO YOU HAVE A PREVIOUS PERSONAL HISTORY OF MORE THAN NINE SURGERIES, SPINA BIFIDA, OR REPEATED CATHERIZATIONS? NO LATEX RISK : ARE YOU FREQUENTLY EXPOSED TO LATEX PRODUCTS IN YOUR OCCUPATION?YES DATE ASKED : 11/17/2018 CAFFEINE CAFFEINE USE?NO ADVANCE DIRECTIVE ADVANCE DIRECTIVE DISCUSSED WITH PATIENT:YES DECLINED HCP INFORMATION. HINDUISM [id number] LUTHERAN MARITAL STATUS: SINGLE. ALCOHOL SCREENING DID YOU HAVE A DRINK CONTAINING ALCOHOL IN THE PAST YEAR?YES HOW OFTEN DID YOU HAVE SIX OR MORE DRINKS ON ONE OCCASION IN THE PAST YEAR?NEVER (0 POINTS) HOW MANY DRINKS DID YOU HAVE ON A TYPICAL DAY WHEN YOU WERE DRINKING IN THE PAST YEAR?3 OR 4 (1 POINT) HOW OFTEN DID YOU HAVE A DRINK CONTAINING ALCOHOL IN THE PAST YEAR?TWO TO FOUR TIMES A MONTH (2 POINTS) POINTS3 INTERPRETATIONNEGATIVE OCCUPATION: [employer]. REVIEWED WITH PATIENT 11/17/18 1037 JSREVIEWED WITH PATIENT 07/23/19 0846 BV. HOSPITALIZATION/MAJOR DIAGNOSTIC PROCEDURE PNEUMONIA CHILD REVIEW OF SYSTEMS REVIEWED BY: PROVIDER: CARLOS EDUARDO POWELL . CONSTITUTIONAL: ANY CHANGE IN YOUR MEDICAL CONDITION? NO . CHILLS NO . FEVER NO . INFECTION: DO YOU HAVE NEW INFECTIONS? NO . DO YOU HAVE HISTORY OF MRSA? NO . MUSCULOSKELETAL: ANY NEW PATTERNS OF PAIN OR NUMBNESS? NO . GASTROENTEROLOGY: ANY NEW CHANGE IN BOWEL CONTROL? NO . GENITOURINARY: ANY NEW CHANGE IN BLADDER CONTROL? NO . IS THERE A CHANCE YOU COULD BE ? NO . HEMATOLOGY/LYMPH: DO YOU TAKE ANY BLOOD THINNERS? (FOR EXAMPLE- COUMADIN, PLAVIX, AGGRENOX, PLATEL, PRADAXA, OR XARELTO) NO . WHEN WAS YOUR LAST DOSE? DATE: TIME: . NEUROLOGY: HAVE YOU FALLEN IN THE PAST 12 MONTHS? PT DENIES ANY FALLS SINCE LAST VISIT. STATES LAST FALL WAS LAST WINTER WHEN HE FELL ON ICE, DENIES ANY INJURIES OR LOSS OF CONSCIOUS WITH THAT FALL. . ANY NEW EXTREMITY NUMBNESS OR WEAKNESS? NO . CARDIOLOGY: DO YOU HAVE A PACEMAKER OR DEFIBRILLATOR? NO . RESPIRATORY: HAVE YOU BEEN SICK IN THE PAST WEEK? NO . FEVER NO . FLU LIKE SYMPTOMS? NO . COUGH NO . INTEGUMENTARY: DO YOU HAVE ANY RASHES OR OPEN SORES? NO . ALLERGIC/IMMUNO: ARE YOU ALLERGIC TO IV DYE? NO . ANY NEW ALLERGIES? NO . PSYCHIATRIC: DO YOU HAVE THOUGHTS OF HURTING YOURSELF OR SOMEONE ELSE? NO . ARE YOU ABUSED, NEGLECTED, OR IN AN UNSAFE ENVIRONMENT? NO . ENDOCRINOLOGY: ARE YOU DIABETIC? NO . OTHER: DO YOU NEED ANY PRESCRIPTIONS? GABAPENTIN, IBUPROFEN . IF YES, PLEASE LIST: ____ . ANY NEW PROBLEMS WITH YOUR MEDICATIONS? NO . WHEN DID YOU LAST EAT? ____ . WHEN DID YOU LAST DRINK? ____ . WHAT DID YOU LAST DRINK? ____ . NAME OF PERSON DRIVING YOU HOME? ____ . DO YOU HAVE ANY OTHER QUESTIONS OR CONCERNS YES, PT WOULD LIKE TO DISCUSS MEDICAL [facility]UANA . VITAL SIGNS WT 156.2 LBS, HT 6', BMI 21.18 INDEX, BP 129/72 MM HG, HR 64 /MIN, RR 16 /MIN, TEMP 97.7 F, OXYGEN SAT % 99%, NA INITIALS SC 08:42, REVIEWED BY: BV. EXAMINATION GENERAL EXAMINATION: GENERALNO ACUTE DISTRESS, WELL NOURISHED AND HYDRATED. PSYCHAPPROPRIATE MOOD AND AFFECT . LUNGS:CLEAR TO AUSCULTATION BILATERALLY, NO WHEEZES, RHONCHI, RALES. HEART:NO MURMURS, REGULAR RATE AND RHYTHM. ASSESSMENTS TESTICLE PAIN - N50.819 (PRIMARY) LUMBAR RADICULOPATHY - M54.16 TREATMENT TESTICLE PAIN REFILL IBUPROFEN TABLET, 800 MG, 1 TABLET WITH FOOD OR MILK NEEDED, ORALLY, THREE TIMES A DAY, 30 DAYS, 90 TABLET, REFILLS 2 REFILL GABAPENTIN CAPSULE, 300 MG, 1 CAPSULE, ORALLY FOR PAIN, THREE TIMES A DAY, 30 DAY(S), 90 CAPSULE, REFILLS 2 CLINICAL NOTES: 33-YEAR-OLD MALE IN FOR CHRONIC PAIN FOLLOW-UP. GIVEN PRESENTING SYMPTOMS AND RESULTS OF PHYSICAL EXAMINATION RECOMMENDED CONTINUATION OF CURRENT MEDICATION REGIMEN WITH FOLLOW-UP IN 3 MONTHS. FURTHER RECOMMENDED REFERRAL TO THE [facility] PROGRAM. PATIENT HAS EXPRESSED UNDERSTANDING OF AND WAS IN AGREEMENT WITH TREATMENT PLAN. GIVEN TIME TO ASK QUESTIONS AND EXPRESS CONCERNS. REFERRAL TO: [facility] REASON:MEDICAL [facility] PROCEDURE CODES FA211 ESTABILISHED PATIENT [facility] CHARGE DISPOSITION & COMMUNICATION FOLLOW UP 3 MONTHS (REASON: BACK PAIN) ELECTRONICALLY SIGNED BY TIFFANIE FAIRCHILD ON 07/24/2019 AT 09:02 AM EST DISCLAIMER : THIS IS A VISIT SUMMARY EXTRACTED FROM THE [employer] CHART. IT IS NOT A COPY OF THE [employer] PROGRESS NOTE. SHAW
== END ==
LOC: M PAIN 08:45
PROVIDERS: ATTEND Family Medicine
DX: N50.819 Testicular pain, unspecified (principal); M54.16 Radiculopathy, lumbar region; G89.29 Other chronic pain; Z87.891 Personal history of nicotine dependence; F12.20 Cannabis dependence, uncomplicated; Z88.1 Allergy status to other antibiotic agents; Z88.2 Allergy status to sulfonamides; Z79.899 Other long term (current) drug therapy

== ENCOUNTER → 2019-11-24 | Outpatient (CLI) | payer OTHER, MEDICAID ==
--- NOTE | 2019-11-26 00:38 | ECWPNPC ---
PATIENT NAME: QUIN LIMA : 1985 GENDER: MALE VISIT DATE: 11/24/2019 DISCHARGE DATE: 11/24/19 1250 VISIT LOCKED DATE TIME: PHYSICIAN: RAYMON DENG RESOURCE: RAYMON DENG REASON FOR APPOINTMENT 1. TESTICULAR PAIN HISTORY OF PRESENT ILLNESS HISTORY OF PRESENT ILLNESS: PAIN THE PATIENT DESCRIBES THE PAINDURING THE LAST MONTH SEVERITY - PAIN SCORE OF7/10 LOCATIONS TESTICULAR PAIN QUALITYACHING , BURNING, THROBBING DURATIONCONTINUOUS, CONSTANT, ALL DAY PAIN IS INCREASED BY:ACTIVITIES PERMISSION REQUESTED AND RECEIVED FROM PATIENT TO PERFORM TELEHEALTH VISIT. 33-YEAR-OLD MALE IN FOR CHRONIC PAIN FOLLOW-UP. PATIENT RATES HIS PAIN CURRENTLY AT A 7 OUT OF 10 AND DESCRIBES IT ACHING, BURNING, AND THROBBING. HE DOES FEEL HIS MEDICATIONS ARE HELPFUL BUT DOES ADMIT THAT AT TIMES THEY DO NOT COVER HIS PAIN. FALL RISK SCREENING: SCREENING :NO FALLS REPORTED IN THE LAST YEAR CURRENT MEDICATIONS TAKING MULTIVITAMIN ADULT - TABLET ORALLY TAKING IBUPROFEN 800 MG TABLET 1 TABLET WITH FOOD OR MILK NEEDED ORALLY THREE TIMES A DAY TAKING GABAPENTIN 300 MG CAPSULE 1 CAPSULE ORALLY FOR PAIN THREE TIMES A DAY TAKING SILDENAFIL CITRATE 100 MG TABLET 1 TABLET NEEDED ORALLY ONCE A DAY MEDICATION LIST REVIEWED AND RECONCILED WITH THE PATIENT PAST MEDICAL HISTORY ACUTE PROSTATITIS LEFT SIDE 2 CYSTS TESTICAL HX HEART MURMUR A CHILD PER PAIN CLINIC PTS MISSING PORTION CARTILAGE IN SPINE ALLERGIES SULFA (FOR ALLERGY USE ONLY): ANAPHYLAXIS - ALLERGY NEOSPORIN: ANAPHYLAXIS - ALLERGY SURGICAL HISTORY TOOTH EXTRACTION 07/2018 TOOTH BRIDGES IMPLANTED 11/2018 FAMILY HISTORY FATHER: ALIVE 51 YRS, HYPERTENSION MOTHER: ALIVE 54 YRS, HYPERTENSION PATERNAL GRAND FATHER: , LUNG CANCER PATERNAL GRAND MOTHER: , LUNG CANCER MATERNAL GRAND FATHER: ALIVE, PROSTATE CA MATERNAL GRAND MOTHER: 60'S YRS, DIABETES 1 SISTER(S) - HEALTHY. MATERNAL GRANDFATHER POSITIVE FOR PROSTATE CA. NO OTHER KNOWN FAMILY HISTORY OF ANY UROLOGICALLY RELATED DISEASES\\\/CANCERS. SOCIAL HISTORY GENERAL: TOBACCO USE ARE YOU A:FORMER SMOKER QUIT 4 YEARS AGO EDUCATION LEVEL OF EDUCATION:HIGH SCHOOL DIET: REGULAR. LANGUAGE LANGUAGES SPOKEN:PUERTO RICAN DOMESTIC VIOLENCE DO YOU FEEL SAFE IN YOUR ENVIRONMENT?YES RECREATIONAL DRUG USE DRUG USE?YES PT SMOKEW MARYJUANA ON A DAILY BASIS AND THC OIL HOW OFTEN AND HOW MUCH? DAILY EXERCISE: DAILY. LEARNING BARRIERS / SPECIAL NEEDS BARRIERS TO LEARNING? NO, HEARING IMPAIRED? YES [place]KS BILATERAL, VISION IMPAIRED? YES, : CORRECTIVE LENSES, READINESS TO LEARN? YES, LEARNING PREFERENCES? NO. PAIN CLINIC PFS, CLERGY, PUBLIC HEALTH REFERRALS PFS REFERRAL NEEDED?NO CLERGY REFERRAL NEEDED?NO PUBLIC HEALTH REFERRAL NEEDED?NO WAS THE PROVIDER NOTIFIED OF ANY PERTINENT INFO?NO HAS THE PATIENT BEEN EDUCATED REGARDING HIS/HER PLAN OF CARE?YES HAS THE PATIENT BEEN EDUCATED REGARDING PAIN, THE RISK FOR PAIN, THE IMPORTANCE OF EFFECTIVE PAIN MANAGEMENT, AND THE PAIN ASSESSMENT PROCESS?YES LATEX QUESTIONNAIRE LATEX ALLERGY : HAVE YOU EVER DEVELOPED ANY TYPE OF REACTION AFTER HANDLING LATEX PRODUCTS SUCH RUBBER GLOVES, CONDOMS, DIAPHRAGMS, BALLOONS, SOCKS, OR UNDERWEAR?NO LATEX ALLERGY : HAVE YOU EVER DEVELOPED ANY TYPE OF REACTION DURING OR AFTER DENTAL APPOINTMENT, VAGINAL/RECTAL EXAMINATION, SURGICAL PROCEDURE, OR ANY OTHER EXPOSURE?NO DATE ASKED : 11/17/2018 LATEX RISK : HAVE YOU EVER HAD ANY DIFFICULTY BREATHING OR HIVES AFTER EATING OR HANDLING ANY FRUITS, OR VEGETABLES; SUCH KIWI, BANANAS, STONE FRUITS, OR CHESTNUTSNO LATEX RISK : DO YOU HAVE A PREVIOUS PERSONAL HISTORY OF MORE THAN NINE SURGERIES, SPINA BIFIDA, OR REPEATED CATHERIZATIONS? NO LATEX RISK : ARE YOU FREQUENTLY EXPOSED TO LATEX PRODUCTS IN YOUR OCCUPATION?YES CAFFEINE CAFFEINE USE?NO ADVANCE DIRECTIVE ADVANCE DIRECTIVE DISCUSSED WITH PATIENT:YES DECLINED HCP INFORMATION. [facility] [id number] EPISCOPALIAN MARITAL STATUS: SINGLE. ALCOHOL SCREENING DID YOU HAVE A DRINK CONTAINING ALCOHOL IN THE PAST YEAR?YES HOW OFTEN DID YOU HAVE SIX OR MORE DRINKS ON ONE OCCASION IN THE PAST YEAR?NEVER (0 POINTS) HOW MANY DRINKS DID YOU HAVE ON A TYPICAL DAY WHEN YOU WERE DRINKING IN THE PAST YEAR?3 OR 4 (1 POINT) HOW OFTEN DID YOU HAVE A DRINK CONTAINING ALCOHOL IN THE PAST YEAR?TWO TO FOUR TIMES A MONTH (2 POINTS) POINTS3 INTERPRETATIONNEGATIVE OCCUPATION: [employer]. HOSPITALIZATION/MAJOR DIAGNOSTIC PROCEDURE PNEUMONIA CHILD REVIEW OF SYSTEMS REVIEWED BY: PROVIDER: CARLOS EDUARDO POWELL . CONSTITUTIONAL: ANY CHANGE IN YOUR MEDICAL CONDITION? NO . CHILLS NO . FEVER NO . INFECTION: DO YOU HAVE NEW INFECTIONS? NO . DO YOU HAVE HISTORY OF MRSA? NO . MUSCULOSKELETAL: ANY NEW PATTERNS OF PAIN OR NUMBNESS? NO . GASTROENTEROLOGY: ANY NEW CHANGE IN BOWEL CONTROL? NO . GENITOURINARY: ANY NEW CHANGE IN BLADDER CONTROL? NO . IS THERE A CHANCE YOU COULD BE ? NO . HEMATOLOGY/LYMPH: DO YOU TAKE ANY BLOOD THINNERS? (FOR EXAMPLE- COUMADIN, PLAVIX, AGGRENOX, PLATEL, PRADAXA, OR XARELTO) NO . WHEN WAS YOUR LAST DOSE? DATE: TIME: . NEUROLOGY: HAVE YOU FALLEN IN THE PAST 12 MONTHS? NO . ANY NEW EXTREMITY NUMBNESS OR WEAKNESS? NO . CARDIOLOGY: DO YOU HAVE A PACEMAKER OR DEFIBRILLATOR? NO . RESPIRATORY: HAVE YOU BEEN SICK IN THE PAST WEEK? NO . FEVER NO . FLU LIKE SYMPTOMS? NO . COUGH NO . INTEGUMENTARY: DO YOU HAVE ANY RASHES OR OPEN SORES? NO . ALLERGIC/IMMUNO: ARE YOU ALLERGIC TO IV DYE? NO . ANY NEW ALLERGIES? NO . PSYCHIATRIC: DO YOU HAVE THOUGHTS OF HURTING YOURSELF OR SOMEONE ELSE? NO . ARE YOU ABUSED, NEGLECTED, OR IN AN UNSAFE ENVIRONMENT? NO . ENDOCRINOLOGY: ARE YOU DIABETIC? NO . OTHER: DO YOU NEED ANY PRESCRIPTIONS? NO . IF YES, PLEASE LIST: ____ . ANY NEW PROBLEMS WITH YOUR MEDICATIONS? NO . WHEN DID YOU LAST EAT? ____ . WHEN DID YOU LAST DRINK? ____ . WHAT DID YOU LAST DRINK? ____ . NAME OF PERSON DRIVING YOU HOME? ____ . DO YOU HAVE ANY OTHER QUESTIONS OR CONCERNS YES, DISCUSS OPTIONS FOR PAIN MANAGEMENT . ASSESSMENTS TESTICLE PAIN - N50.819 (PRIMARY) TREATMENT TESTICLE PAIN REFILL GABAPENTIN CAPSULE, 300 MG, 1 CAPSULE IN AM AND AFTERNOON, 2 AT BEDTIME, ORALLY FOR PAIN, THREE TIMES A DAY, 30 DAY(S), 120, REFILLS 2 CLINICAL NOTES: 33-YEAR-OLD MALE IN FOR CHRONIC PAIN FOLLOW-UP. GIVEN PRESENTING SYMPTOMS RECOMMEND INCREASING GABAPENTIN TO 300 MG 1 IN THE MORNING, 1 IN THE AFTERNOON, AND 2 AT BEDTIME WITH FOLLOW-UP IN 2 MONTHS TO DETERMINE EFFICACY OF TREATMENT. PATIENT HAS EXPRESSED UNDERSTANDING OF AND WAS IN AGREEMENT WITH TREATMENT PLAN. GIVEN TIME TO ASK QUESTIONS AND EXPRESS CONCERNS.VISIT TO BE BILLED BASED ON TIME SPENT WITH PATIENT. TIME SPENT WITH PATIENT 11 MINUTES. DISPOSITION & COMMUNICATION FOLLOW UP 2 MONTHS (REASON: TESTICULAR PAIN, MEDICATION INCREASE) ELECTRONICALLY SIGNED BY TIFFANIE FAIRCHILD ON 11/25/2019 AT 01:41 PM EDT DISCLAIMER : THIS IS A VISIT SUMMARY EXTRACTED FROM THE [employer] CHART. IT IS NOT A COPY OF THE [facility] PROGRESS NOTE. MTDD
== END ==
LOC: M PAIN 10:15
PROVIDERS: ATTEND Family Medicine
DX: N50.819 Testicular pain, unspecified (principal); Z79.899 Other long term (current) drug therapy; Z87.891 Personal history of nicotine dependence; Z88.2 Allergy status to sulfonamides; Z88.8 Allergy status to other drugs, medicaments and biological substances

== ENCOUNTER → 2020-01-28 | Outpatient (CLI) | payer OTHER, MEDICAID ==
--- NOTE | 2020-02-02 04:48 | ECWPNPC ---
PATIENT NAME: QUIN LIMA : 1985 GENDER: MALE VISIT DATE: 01/28/2020 DISCHARGE DATE: 01/28/20 0955 VISIT LOCKED DATE TIME: PHYSICIAN: RAYMON DENG RESOURCE: RAYMON DENG REASON FOR APPOINTMENT 1. TESTICULAR PAIN, MEDS HISTORY OF PRESENT ILLNESS GENERAL: - 34-YEAR-OLD MALE IN FOR CHRONIC PAIN FOLLOW-UP. HE RATES PAIN CURRENTLY AT AN 8 OUT OF 10 AND DESCRIBES IT DULL AND NUMB. HE FEELS MEDICATIONS ARE HELPFUL AND DENIES MED SIDE EFFECTS AT THIS TIME. FALL RISK SCREENING: SCREENING :ONE FALL WITHOUT INJURY IN THE PAST YEAR PAIN SCREENING: PATIENT HAS A COMPLAINT OF ACUTE OR CHRONIC PAIN :YES LOCATION OF PAIN: TESTICULAR PAIN INTENSITY OF PAIN (SCALE OF 1 TO 10):8 WHAT DOES YOUR PAIN FEEL LIKE: DULL AND NUMBNESS DURATION:CONTINOUS, CONSTANT, ALL DAY PAIN IS INCREASED BY:ACTIVITIES PAIN IS DECREASED BY:USE OF PAIN MEDICATIONS PLAN/GOALS/TREATMENT/INTERVENTION/FOLLOW UP:SEE PLAN NURSING NOTE: -. PAIN CENTER INTAKE QUESTIONS: DO YOU HAVE A HISTORY OF MRSA? :NO DO YOU TAKE A BLOOD THINNERS? :NO DO YOU HAVE ANY BLEEDING DISORDERS? :NO ANY NEW NUMBNESS OR WEAKNESS IN YOUR LEGS OR ARMS? :YES RIGHT LEG AND LEFT ARM NUMBNESS ANY PACEMAKER,DEFIBRILLATOR, OR DORSAL COLUMN STIMULATOR? :NO DO YOU HAVE ANY RASHES OR OPEN SORES? :NO ARE YOU ALLERGIC TO IV DYE? :NO ARE YOU DIABETIC? :NO ANY NEW PROBLEMS WITH YOUR MEDICATIONS? :NO HAVE YOU RECEIVED A VACCINE IN THE PAST 30 DAYS? :NO DO YOU PLAN TO RECEIVE A VACCINE IN THE NEXT 21 DAYS? :NO DO YOU NEED ANY PRESCRIPTION? :YES GABAPENTIN DO YOU TAKE ANY IMMUNOSUPPRESSIVE MEDICATIONS? :NO IS THERE A CHANCE YOU COULD BE ? :NO ARE YOU BREAST FEEDING? :NO CURRENT MEDICATIONS TAKING MULTIVITAMIN ADULT - TABLET ORALLY TAKING IBUPROFEN 800 MG TABLET 1 TABLET WITH FOOD OR MILK NEEDED ORALLY THREE TIMES A DAY TAKING GABAPENTIN 300 MG CAPSULE 1 CAPSULE IN AM AND AFTERNOON, 2 AT BEDTIME ORALLY FOR PAIN THREE TIMES A DAY TAKING SILDENAFIL CITRATE 100 MG TABLET 1 TABLET NEEDED ORALLY ONCE A DAY TAKING LEXAPRO 20 MG TABLET 1 TABLET ORALLY ONCE A DAY, NOTES: 25 MG TAKING SEROQUEL 25 MG TABLET 1 TABLET AT BEDTIME ORALLY ONCE A DAY MEDICATION LIST REVIEWED AND RECONCILED WITH THE PATIENT PAST MEDICAL HISTORY ACUTE PROSTATITIS LEFT SIDE 2 CYSTS TESTICAL HX HEART MURMUR A CHILD PER PAIN CLINIC PTS MISSING PORTION CARTILAGE IN SPINE ANXIETY/ DEPRESSION ALLERGIES SULFA (FOR ALLERGY USE ONLY): ANAPHYLAXIS - ALLERGY NEOSPORIN: ANAPHYLAXIS - ALLERGY SURGICAL HISTORY TOOTH EXTRACTION 07/2018 TOOTH BRIDGES IMPLANTED 11/2018 FAMILY HISTORY FATHER: ALIVE 51 YRS, HYPERTENSION MOTHER: ALIVE 54 YRS, HYPERTENSION PATERNAL GRAND FATHER: , LUNG CANCER PATERNAL GRAND MOTHER: , LUNG CANCER MATERNAL GRAND FATHER: ALIVE, PROSTATE CA MATERNAL GRAND MOTHER: 60'S YRS, DIABETES 1 SISTER(S) - HEALTHY. MATERNAL GRANDFATHER POSITIVE FOR PROSTATE CA. NO OTHER KNOWN FAMILY HISTORY OF ANY UROLOGICALLY RELATED DISEASES\\\/CANCERS. SOCIAL HISTORY GENERAL: TOBACCO USE ARE YOU A:FORMER SMOKER QUIT 4 YEARS AGO LATEX QUESTIONNAIRE LATEX ALLERGY : HAVE YOU EVER DEVELOPED ANY TYPE OF REACTION AFTER HANDLING LATEX PRODUCTS SUCH RUBBER GLOVES, CONDOMS, DIAPHRAGMS, BALLOONS, SOCKS, OR UNDERWEAR?NO LATEX ALLERGY : HAVE YOU EVER DEVELOPED ANY TYPE OF REACTION DURING OR AFTER DENTAL APPOINTMENT, VAGINAL/RECTAL EXAMINATION, SURGICAL PROCEDURE, OR ANY OTHER EXPOSURE?NO LATEX RISK : HAVE YOU EVER HAD ANY DIFFICULTY BREATHING OR HIVES AFTER EATING OR HANDLING ANY FRUITS, OR VEGETABLES; SUCH KIWI, BANANAS, STONE FRUITS, OR CHESTNUTSNO LATEX RISK : DO YOU HAVE A PREVIOUS PERSONAL HISTORY OF MORE THAN NINE SURGERIES, SPINA BIFIDA, OR REPEATED CATHERIZATIONS? NO LATEX RISK : ARE YOU FREQUENTLY EXPOSED TO LATEX PRODUCTS IN YOUR OCCUPATION?YES DATE ASKED : 01/28/2020 ALCOHOL SCREENING DID YOU HAVE A DRINK CONTAINING ALCOHOL IN THE PAST YEAR?YES HOW OFTEN DID YOU HAVE SIX OR MORE DRINKS ON ONE OCCASION IN THE PAST YEAR?NEVER (0 POINTS) HOW MANY DRINKS DID YOU HAVE ON A TYPICAL DAY WHEN YOU WERE DRINKING IN THE PAST YEAR?3 OR 4 (1 POINT) HOW OFTEN DID YOU HAVE A DRINK CONTAINING ALCOHOL IN THE PAST YEAR?TWO TO FOUR TIMES A MONTH (2 POINTS) POINTS3 INTERPRETATIONNEGATIVE RECREATIONAL DRUG USE DRUG USE?YES PT SMOKEW MARYJUANA ON A DAILY BASIS AND THC OIL HOW OFTEN AND HOW MUCH? DAILY CAFFEINE CAFFEINE USE?NO SABIANIST [id number] JAIN LANGUAGE LANGUAGES SPOKEN:PERSIAN EDUCATION LEVEL OF EDUCATION:HIGH SCHOOL LEARNING BARRIERS / SPECIAL NEEDS BARRIERS TO LEARNING? NO, HEARING IMPAIRED? YES [place] BILATERAL, VISION IMPAIRED? YES, : CORRECTIVE LENSES, READINESS TO LEARN? YES, LEARNING PREFERENCES? NO. DOMESTIC VIOLENCE DO YOU FEEL SAFE IN YOUR ENVIRONMENT?YES OCCUPATION: [employer]. DIET: REGULAR. EXERCISE: DAILY. MARITAL STATUS: SINGLE. PAIN CLINIC PFS, CLERGY, PUBLIC HEALTH REFERRALS PFS REFERRAL NEEDED?NO CLERGY REFERRAL NEEDED?NO PUBLIC HEALTH REFERRAL NEEDED?NO WAS THE PROVIDER NOTIFIED OF ANY PERTINENT INFO?NO HAS THE PATIENT BEEN EDUCATED REGARDING HIS/HER PLAN OF CARE?YES HAS THE PATIENT BEEN EDUCATED REGARDING PAIN, THE RISK FOR PAIN, THE IMPORTANCE OF EFFECTIVE PAIN MANAGEMENT, AND THE PAIN ASSESSMENT PROCESS?YES ADVANCE DIRECTIVE ADVANCE DIRECTIVE DISCUSSED WITH PATIENT:YES DECLINED HCP INFORMATION. HOSPITALIZATION/MAJOR DIAGNOSTIC PROCEDURE PNEUMONIA CHILD REVIEW OF SYSTEMS CONSTITUTIONAL: ANY RECENT FEVER OR ILLNESS NO . CHILLS NO . GASTROENTEROLOGY: BOWEL INCONTINENCE NO . ANY NEW CHANGE IN BOWEL CONTROL? NO . ABDOMINAL PAIN NO . CONSTIPATION NO . GENITOURINARY: ANY NEW CHANGE IN BLADDER CONTROL? NO . URINARY INCONTINENCE NO . CARDIOLOGY: CHEST PRESSURE NO . CHEST PAIN NO . RESPIRATORY: COUGH NO . SHORTNESS OF BREATH NO . VITAL SIGNS WT 157.8 LBS, HT 6', BMI 21.40 INDEX, BP 108/64 MM HG, HR 59 /MIN, RR 18 /MIN, TEMP 98.3 F, OXYGEN SAT % 98%, NA INITIALS AW 0921. EXAMINATION GENERAL EXAMINATION: GENERALNO ACUTE DISTRESS, WELL NOURISHED AND HYDRATED. PSYCHAPPROPRIATE MOOD AND AFFECT . LUNGS:CLEAR TO AUSCULTATION BILATERALLY, NO WHEEZES, RHONCHI, RALES. HEART:NO MURMURS, REGULAR RATE AND RHYTHM. ASSESSMENTS TESTICLE PAIN - N50.819 (PRIMARY) TREATMENT TESTICLE PAIN INCREASE GABAPENTIN CAPSULE, 400 MG, 1 CAPSULE, ORALLY, THREE TIMES A DAY, 30 DAY(S), 90, REFILLS 2 CLINICAL NOTES: 34-YEAR-OLD MALE IN FOR CHRONIC PAIN FOLLOW-UP. GIVEN PRESENTING SYMPTOMS RECOMMEND INCREASING GABAPENTIN TO 400 MG 3 TIMES A DAY WITH FOLLOW-UP IN ONE MONTH TO DETERMINE EFFICACY OF TREATMENT. PATIENT HAS EXPRESSED UNDERSTANDING OF AND WAS IN AGREEMENT WITH TREATMENT PLAN. GIVEN TIME TO ASK QUESTIONS AND EXPRESS CONCERNS. PROCEDURE CODES FA211 ESTABILISHED PATIENT [facility] CHARGE DISPOSITION & COMMUNICATION FOLLOW UP 4 WEEKS (REASON: TESTICULAR PAIN, MED INCREASE) ELECTRONICALLY SIGNED BY TIFFANIE FAIRCHILD ON 02/01/2020 AT 08:12 AM EDT DISCLAIMER : THIS IS A VISIT SUMMARY EXTRACTED FROM THE [employer] CHART. IT IS NOT A COPY OF THE [employer] PROGRESS NOTE. SHAW
== END ==
LOC: M PAIN 09:15
PROVIDERS: ATTEND Family Medicine
DX: N50.819 Testicular pain, unspecified (principal)

== ENCOUNTER → 2020-03-10 | Outpatient (CLI) | payer OTHER ==
[2020-03-10 10:17] LABS: THYROID STIMULATING HORMONE 1.55 uIU/ML (0.358-3.740)
[2020-04-04 08:06] LABS: TESTOSTERONE FREE (DIRECT) 10.2 pg/mL (8.7-25.1)
== END ==
LOC: M LAB 09:13
PROVIDERS: ATTEND Nurse Practitioner Family
DX: N53.19 Other ejaculatory dysfunction (principal)

== ENCOUNTER → 2020-03-24 | Outpatient (CLI) | payer OTHER | LOC: M PAIN 09:15 | PROVIDERS: ATTEND Family Medicine | DX: M54.16 Radiculopathy, lumbar region (principal) ==

== ENCOUNTER → 2020-05-05 | Outpatient (REF) | payer OTHER ==
[2020-05-05 14:29] LABS: ALBUMIN 4.2 GM/DL (3.2-5.2); ALT/SGPT 25 U/L (12-78); BILIRUBIN,TOTAL 0.5 MG/DL (0.2-1.0); BLOOD UREA NITROGEN 16 MG/DL (7-18); CALCIUM LEVEL 9.4 MG/DL (8.5-10.1); CARBON DIOXIDE LEVEL 28 MEQ/L (21-32); CHLORIDE LEVEL 107 MEQ/L (98-107); CREATININE FOR GFR 1.19 MG/DL (0.70-1.30); FREE T4 0.84 NG/DL (0.76-1.46); GLOMERULAR FILTRATION RATE > 60.0 (>60); GLUCOSE, FASTING 83 MG/DL (70-100); POTASSIUM SERUM 4.2 MEQ/L (3.5-5.1); SODIUM LEVEL 141 MEQ/L (136-145); TOTAL PROTEIN 6.8 GM/DL (6.4-8.2)
[2020-05-05 15:43] LABS: BASO # 0.1 10^3/uL (0.0-0.2); BASO % 1.4 % (0.0-1.0); EOS # 0.1 10^3/uL (0.0-0.5); HEMATOCRIT 44.6 % (42.0-52.0); HEMOGLOBIN 14.8 g/dl (13.5-17.5); LYMPH # 1.7 10^3/uL (1.5-5.0); LYMPH % 34.1 % (24.0-44.0); MEAN CORPUSCULAR HEMOGLOBIN 30.4 pg (27.0-33.0); MEAN CORPUSCULAR HGB CONC 33.2 g/dl (32.0-36.5); MEAN CORPUSCULAR VOLUME 91.6 fl (80.0-96.0); MONO # 0.6 10^3/uL (0.0-0.8); MONO % 12.6 % (0.0-5.0); NEUTROPHILS # 2.5 10^3/uL (1.5-8.5); NEUTROPHILS % 50.7 % (36.0-66.0); PLATELET COUNT, AUTOMATED 143 10^3/uL (150-450); RED BLOOD COUNT 4.87 10^6/uL (4.30-6.10)
[2020-05-05 15:52] LABS: TOTAL 25(OH) VITAMIN D 28.5 NG/ML (30.0-100.0)
[2020-05-06 12:52] LABS: H PYLORI QUALITATIVE IgG NEGATIVE (NEGATIVE)
== END ==
LOC: M LAB REF 12:26
PROVIDERS: ATTEND Physician Assistant
DX: R63.4 Abnormal weight loss (principal); K21.9 Gastro-esophageal reflux disease without esophagitis; F41.9 Anxiety disorder, unspecified; R53.83 Other fatigue; J45.909 Unspecified asthma, uncomplicated

== ENCOUNTER → 2020-06-30 | Outpatient (CLI) | payer OTHER, MEDICAID ==
--- NOTE | 2020-07-02 04:32 | ECWPNPC ---
PATIENT NAME: QUIN LIMA : 1985 GENDER: MALE VISIT DATE: 06/30/2020 DISCHARGE DATE: 06/30/20 1014 VISIT LOCKED DATE TIME: PHYSICIAN: RAYMON DENG RESOURCE: RAYMON DENG REASON FOR APPOINTMENT 1. LEFT TESTICULAR PAIN HISTORY OF PRESENT ILLNESS GENERAL: - - 34-YEAR-OLD MALE IN FOR CHRONIC PAIN FOLLOW-UP. HE RATES PAIN CURRENTLY AT AN 8 OUT OF 10 AND DESCRIBES IT ACHING AND BURNING. HE FEELS MEDICATIONS ARE HELPFUL AND DENIES MED SIDE EFFECTS AT THIS TIME. FALL RISK SCREENING: SCREENING :ONE FALL WITHOUT INJURY IN THE PAST YEAR PAIN SCREENING: PATIENT HAS A COMPLAINT OF ACUTE OR CHRONIC PAIN :YES LOCATION OF PAIN:LEFT SHOULDER, UPPER BACK, MID BACK, LOW BACK, OTHER: TESTICULAR PAIN INTENSITY OF PAIN (SCALE OF 1 TO 10):8 WHAT DOES YOUR PAIN FEEL LIKE:ACHING, BURNING DURATION:INTERMITTENT PAIN IS INCREASED BY:ACTIVITIES COLD WEATHER PAIN IS DECREASED BY:OTHERS MARIJUANNA, HEAT TREATMENT/MEDICATIONS USED TO MANAGE PAIN:OTC PAIN RELIEVERS LEVEL OF RELIEF FROM PAIN TREATMENTS IN THE PAST:100% PAIN HAS INTERFERED WITH THE FOLLOWING:BATHING/DRESSING, WALKING ABILITY, HOUSEWORK, SLEEP, TRANSPORTATION, TOILETING NURSING NOTE: -. PAIN CENTER INTAKE QUESTIONS: DO YOU HAVE A HISTORY OF MRSA? :NO DO YOU TAKE A BLOOD THINNERS? :NO DO YOU HAVE ANY BLEEDING DISORDERS? :NO ANY NEW NUMBNESS OR WEAKNESS IN YOUR LEGS OR ARMS? :NO ANY PACEMAKER,DEFIBRILLATOR, OR DORSAL COLUMN STIMULATOR? :NO DO YOU HAVE ANY RASHES OR OPEN SORES? :NO ARE YOU ALLERGIC TO IV DYE? :NO ARE YOU DIABETIC? :NO ANY NEW PROBLEMS WITH YOUR MEDICATIONS? :NO HAVE YOU RECEIVED A VACCINE IN THE PAST 30 DAYS? :NO DO YOU PLAN TO RECEIVE A VACCINE IN THE NEXT 21 DAYS? :NO DO YOU NEED ANY PRESCRIPTION? :NO DO YOU TAKE ANY IMMUNOSUPPRESSIVE MEDICATIONS? :NO IS THERE A CHANCE YOU COULD BE ? :NO ARE YOU BREAST FEEDING? :NO CURRENT MEDICATIONS TAKING MULTIVITAMIN ADULT - TABLET ORALLY TAKING IBUPROFEN 800 MG TABLET 1 TABLET WITH FOOD OR MILK NEEDED ORALLY THREE TIMES A DAY TAKING SILDENAFIL CITRATE 100 MG TABLET 1 TABLET NEEDED ORALLY ONCE A DAY TAKING LEXAPRO 20 MG TABLET 1 TABLET ORALLY ONCE A DAY, NOTES: 25 MG TAKING SEROQUEL 25 MG TABLET 1 TABLET AT BEDTIME ORALLY ONCE A DAY TAKING GABAPENTIN 400 MG CAPSULE 1 CAPSULE ORALLY THREE TIMES A DAY TAKING MAY HAVE MEDICAL MARIJUANNA ORALLY AND INHALE PRN MEDICATION LIST REVIEWED AND RECONCILED WITH THE PATIENT PAST MEDICAL HISTORY ACUTE PROSTATITIS LEFT SIDE 2 CYSTS TESTICAL HX HEART MURMUR A CHILD PER PAIN CLINIC PTS MISSING PORTION CARTILAGE IN SPINE ANXIETY/ DEPRESSION ALLERGIES SULFA (FOR ALLERGY USE ONLY): ANAPHYLAXIS - ALLERGY NEOSPORIN: ANAPHYLAXIS - ALLERGY SURGICAL HISTORY TOOTH EXTRACTION 07/2018 TOOTH BRIDGES IMPLANTED 11/2018 FAMILY HISTORY FATHER: ALIVE 51 YRS, HYPERTENSION MOTHER: ALIVE 54 YRS, HYPERTENSION PATERNAL GRAND FATHER: , LUNG CANCER PATERNAL GRAND MOTHER: , LUNG CANCER MATERNAL GRAND FATHER: ALIVE, PROSTATE CA MATERNAL GRAND MOTHER: 60'S YRS, DIABETES 1 SISTER(S) - HEALTHY. MATERNAL GRANDFATHER POSITIVE FOR PROSTATE CA. NO OTHER KNOWN FAMILY HISTORY OF ANY UROLOGICALLY RELATED DISEASES\\\/CANCERS. SOCIAL HISTORY GENERAL: TOBACCO USE ARE YOU A:CURRENT SMOKER ARE YOU INTERESTED IN QUITTING?NOT READY TO QUIT COUNSELED THE PATIENT ON SMOKING EFFECTS, EDUCATION [id number]/12/2020 LATEX QUESTIONNAIRE LATEX ALLERGY : HAVE YOU EVER DEVELOPED ANY TYPE OF REACTION AFTER HANDLING LATEX PRODUCTS SUCH RUBBER GLOVES, CONDOMS, DIAPHRAGMS, BALLOONS, SOCKS, OR UNDERWEAR?NO LATEX ALLERGY : HAVE YOU EVER DEVELOPED ANY TYPE OF REACTION DURING OR AFTER DENTAL APPOINTMENT, VAGINAL/RECTAL EXAMINATION, SURGICAL PROCEDURE, OR ANY OTHER EXPOSURE?NO DATE ASKED : 03/03/2020 LATEX RISK : HAVE YOU EVER HAD ANY DIFFICULTY BREATHING OR HIVES AFTER EATING OR HANDLING ANY FRUITS, OR VEGETABLES; SUCH KIWI, BANANAS, STONE FRUITS, OR CHESTNUTSNO LATEX RISK : DO YOU HAVE A PREVIOUS PERSONAL HISTORY OF MORE THAN NINE SURGERIES, SPINA BIFIDA, OR REPEATED CATHERIZATIONS? NO LATEX RISK : ARE YOU FREQUENTLY EXPOSED TO LATEX PRODUCTS IN YOUR OCCUPATION?YES ALCOHOL SCREENING DID YOU HAVE A DRINK CONTAINING ALCOHOL IN THE PAST YEAR?YES HOW OFTEN DID YOU HAVE A DRINK CONTAINING ALCOHOL IN THE PAST YEAR?TWO TO FOUR TIMES A MONTH (2 POINTS) HOW MANY DRINKS DID YOU HAVE ON A TYPICAL DAY WHEN YOU WERE DRINKING IN THE PAST YEAR?3 OR 4 (1 POINT) HOW OFTEN DID YOU HAVE SIX OR MORE DRINKS ON ONE OCCASION IN THE PAST YEAR?NEVER (0 POINTS) POINTS3 INTERPRETATIONNEGATIVE RECREATIONAL DRUG USE DRUG USE?YES PT SMOKEW MARYJUANA ON A DAILY BASIS AND THC OIL HOW OFTEN AND HOW MUCH? DAILY CAFFEINE CAFFEINE USE?NO SIKH [id number] JEW LANGUAGE LANGUAGES SPOKEN:SUDANESE EDUCATION LEVEL OF EDUCATION:HIGH SCHOOL LEARNING BARRIERS / SPECIAL NEEDS BARRIERS TO LEARNING? NO, HEARING IMPAIRED? YES LITTLE TRAVERSE BILATERAL, VISION IMPAIRED? YES, : CORRECTIVE LENSES, READINESS TO LEARN? YES, LEARNING PREFERENCES? NO. DOMESTIC VIOLENCE DO YOU FEEL SAFE IN YOUR ENVIRONMENT?YES OCCUPATION: [employer]. DIET: REGULAR. EXERCISE: DAILY. MARITAL STATUS: SINGLE. PAIN CLINIC PFS, CLERGY, PUBLIC HEALTH REFERRALS PFS REFERRAL NEEDED?NO CLERGY REFERRAL NEEDED?NO PUBLIC HEALTH REFERRAL NEEDED?NO WAS THE PROVIDER NOTIFIED OF ANY PERTINENT INFO?NO HAS THE PATIENT BEEN EDUCATED REGARDING HIS/HER PLAN OF CARE?YES HAS THE PATIENT BEEN EDUCATED REGARDING PAIN, THE RISK FOR PAIN, THE IMPORTANCE OF EFFECTIVE PAIN MANAGEMENT, AND THE PAIN ASSESSMENT PROCESS?YES ADVANCE DIRECTIVE ADVANCE DIRECTIVE DISCUSSED WITH PATIENT:YES DECLINED HCP INFORMATION. HOSPITALIZATION/MAJOR DIAGNOSTIC PROCEDURE PNEUMONIA CHILD REVIEW OF SYSTEMS CONSTITUTIONAL: ANY RECENT FEVER NO . CHILLS NO . WEIGHT CHANGE OF UNKNOWN REASONS NO . GASTROENTEROLOGY: NEW UNEXPLAINABLE CHANGES IN BOWEL CONTROL NO . CONSTIPATION NO . GENITOURINARY: ANY NEW CHANGE IN BLADDER CONTROL? NO . NEUROLOGY: NEW ONSET DIZZINESS OR NEUROLOGICAL CHANGES NOT MENTIONED NO . NEW NUMBNESS OR PAIN PATTERNS NOT MENTIONED AND PERTINENT TO TODAY'S VISIT NO . CARDIOLOGY: NEW CHEST PRESSURE NO . NEW CHEST PAIN NO . RESPIRATORY: UNEXPLAINABLE COUGH NO . NEW SHORTNESS OF BREATH NO . VITAL SIGNS WT 155 LBS, HT 6', BMI 21.02 INDEX, BP 125/70 MM HG, HR 65 /MIN, RR 18 /MIN, TEMP 97.4 F, OXYGEN SAT % 100%, SAFE IN ENV? (Y/N) Y, NA INITIALS HI 09:56, REVIEWED BY: EM. EXAMINATION GENERAL EXAMINATION: GENERALNO ACUTE DISTRESS, WELL NOURISHED AND HYDRATED. PSYCHAPPROPRIATE MOOD AND AFFECT . LUNGS:CLEAR TO AUSCULTATION BILATERALLY, NO WHEEZES, RHONCHI, RALES. HEART:NO MURMURS, REGULAR RATE AND RHYTHM. ASSESSMENTS TESTICLE PAIN - N50.819 (PRIMARY) TREATMENT TESTICLE PAIN NOTES: 34-YEAR-OLD MALE IN FOR CHRONIC PAIN FOLLOW-UP. GIVEN PRESENTING SYMPTOMS RECOMMENDED CONTINUATION CURRENT MEDICATION REGIMEN WITH FOLLOW-UP IN 4 MONTHS. PATIENT EXPRESSED UNDERSTANDING OF AND WAS IN AGREEMENT WITH TREATMENT PLAN. GIVEN TIME TO ASK QUESTIONS AND EXPRESS CONCERNS. PROCEDURE CODES FA211 ESTABILISHED PATIENT [facility] CHARGE DISPOSITION & COMMUNICATION FOLLOW UP 4 MONTHS (REASON: TESTICLE PAIN) ELECTRONICALLY SIGNED BY TIFFANIE FAIRCHILD ON 07/01/2020 AT 08:45 AM EST DISCLAIMER : THIS IS A VISIT SUMMARY EXTRACTED FROM THE [employer] CHART. IT IS NOT A COPY OF THE [employer] PROGRESS NOTE. SHAW
== END ==
LOC: M PAIN 09:30
PROVIDERS: ATTEND Family Medicine
DX: N50.819 Testicular pain, unspecified (principal); F41.9 Anxiety disorder, unspecified; F32.9 Major depressive disorder, single episode, unspecified; F17.210 Nicotine dependence, cigarettes, uncomplicated; Z79.899 Other long term (current) drug therapy; Z88.2 Allergy status to sulfonamides; Z88.8 Allergy status to other drugs, medicaments and biological substances

== ENCOUNTER → 2020-09-15 | Outpatient (REF) | payer OTHER, MEDICAID ==
[2020-09-15 17:39] LABS: ALBUMIN 4.5 GM/DL (3.2-5.2); ALT/SGPT 26 U/L (12-78); BILIRUBIN,TOTAL 0.9 MG/DL (0.2-1.0); BLOOD UREA NITROGEN 19 MG/DL (7-18); CALCIUM LEVEL 9.9 MG/DL (8.5-10.1); CARBON DIOXIDE LEVEL 28 MEQ/L (21-32); CHLORIDE LEVEL 104 MEQ/L (98-107); CREATININE FOR GFR 1.18 MG/DL (0.70-1.30); GLOMERULAR FILTRATION RATE > 60.0 (>60); GLUCOSE, FASTING 112 MG/DL (70-100); POTASSIUM SERUM 4.1 MEQ/L (3.5-5.1); SODIUM LEVEL 142 MEQ/L (136-145); TOTAL PROTEIN 7.2 GM/DL (6.4-8.2)
[2020-09-15 20:03] LABS: HEMOGLOBIN A1c 4.9 %
== END ==
LOC: M LAB REF 16:16
PROVIDERS: ATTEND Physician Assistant
DX: Z13.228 Encounter for screening for other metabolic disorders (principal)

== ENCOUNTER → 2020-11-24 | Outpatient (CLI) | payer OTHER ==
[~2020-11-24] MED LIST changes: +ESCITALOPRAM; +GABA-845 PO; -ISOVUE-370 76% 100ML VIAL (Q9967) As Ordered; +LEXA1TAB PO; +QUET25TA3 PO
--- NOTE | 2020-11-26 09:59 | ECWPNPC ---
PATIENT NAME: QUIN LIMA : 1985 GENDER: MALE VISIT DATE: 11/24/2020 DISCHARGE DATE: 11/24/20 1026 VISIT LOCKED DATE TIME: PHYSICIAN: RAYMON DENG RESOURCE: RAYMON DENG REASON FOR APPOINTMENT 1. LEFT TESTICULAR PAIN HISTORY OF PRESENT ILLNESS DEPRESSION SCREENING: PHQ-9 LITTLE INTEREST OR PLEASURE IN DOING THINGSSEVERAL DAYS FEELING DOWN, DEPRESSED, OR HOPELESSSEVERAL DAYS TROUBLE FALLING OR STAYING ASLEEP, OR SLEEPING TOO MUCHNEARLY EVERY DAY FEELING TIRED OR HAVING LITTLE ENERGYNEARLY EVERY DAY POOR APPETITE OR OVEREATING SEVERAL DAYS FEELING BAD ABOUT YOURSELF-OR THAT YOU ARE A FAILURE OR HAVE LET YOURSELF OR YOUR FAMILY DOWN NOT AT ALL TROUBLE CONCENTRATING ON THINGS, SUCH READING THE NEWSPAPER OR WATCHING TELEVISION SEVERAL DAYS MOVING OR SPEAKING SO SLOWLY THAT OTHER PEOPLE COULD HAVE NOTICED. OR THE OPPOSITE- BEING SO FIDGETY OR RESTLESS THAT YOU HAVE BEEN MOVING AROUND A LOT MORE THAN USUALNOT AT ALL THOUGHTS THAT YOU WOULD BE BETTER OFF , OR OF HURTING YOURSELF IN SOME WAY?NOT AT ALL TOTAL SCORE:10 INTERPRETATIONMODERATE DEPRESSION PHQ-2 (2015 EDITION) LITTLE INTEREST OR PLEASURE IN DOING THINGS?SEVERAL DAYS FEELING DOWN, DEPRESSED, OR HOPELESS?SEVERAL DAYS TOTAL SCORE2 34-YEAR-OLD MALE IN FOR CHRONIC PAIN FOLLOW-UP. HE RATES PAIN CURRENTLY AT AN 8 OUT OF 10. WHEN ASKED PATIENT ADMITS THAT HE ONLY USES HIS MEDICATION NEEDED BASIS. GENERAL: -. FALL RISK SCREENING: SCREENING : NO FALLS REPORTED IN THE LAST YEAR. PAIN SCREENING: PATIENT HAS A COMPLAINT OF ACUTE OR CHRONIC PAIN :YES LOCATION OF PAIN:LOW BACK INTENSITY OF PAIN (SCALE OF 1 TO 10):8 WHAT DOES YOUR PAIN FEEL LIKE:BURNING DURATION:CONTINOUS, CONSTANT, ALL DAY PAIN IS INCREASED BY:ACTIVITIES, PROLONGED STANDING PAIN IS DECREASED BY:OTHERS HEAT NURSING NOTE: -. PAIN CENTER INTAKE QUESTIONS: DO YOU HAVE A HISTORY OF MRSA? :NO DO YOU TAKE A BLOOD THINNERS? :NO DO YOU HAVE ANY BLEEDING DISORDERS? :NO ANY NEW NUMBNESS OR WEAKNESS IN YOUR LEGS OR ARMS? :NO ANY PACEMAKER,DEFIBRILLATOR, OR DORSAL COLUMN STIMULATOR? :NO DO YOU HAVE ANY RASHES OR OPEN SORES? :NO ARE YOU ALLERGIC TO IV DYE? :NO ARE YOU DIABETIC? :NO ANY NEW PROBLEMS WITH YOUR MEDICATIONS? :NO HAVE YOU RECEIVED A VACCINE IN THE PAST 30 DAYS? :NO DO YOU PLAN TO RECEIVE A VACCINE IN THE NEXT 21 DAYS? :NO DO YOU NEED ANY PRESCRIPTION? :NO DO YOU TAKE ANY IMMUNOSUPPRESSIVE MEDICATIONS? :NO IS THERE A CHANCE YOU COULD BE ? :NO ARE YOU BREAST FEEDING? :NO CURRENT MEDICATIONS TAKING MULTIVITAMIN ADULT - TABLET ORALLY TAKING IBUPROFEN 800 MG TABLET 1 TABLET WITH FOOD OR MILK NEEDED ORALLY THREE TIMES A DAY TAKING SILDENAFIL CITRATE 100 MG TABLET 1 TABLET NEEDED ORALLY ONCE A DAY TAKING LEXAPRO 20 MG TABLET 1 TABLET ORALLY ONCE A DAY TAKING SEROQUEL 25 MG TABLET 1 TABLET AT BEDTIME ORALLY ONCE A DAY TAKING GABAPENTIN 400 MG CAPSULE 1 CAPSULE ORALLY THREE TIMES A DAY TAKING MAY HAVE MEDICAL MARIJUANNA ORALLY AND INHALE PRN MEDICATION LIST REVIEWED AND RECONCILED WITH THE PATIENT PAST MEDICAL HISTORY ACUTE PROSTATITIS LEFT SIDE 2 CYSTS TESTICAL HX HEART MURMUR A CHILD PER PAIN CLINIC PTS MISSING PORTION CARTILAGE IN SPINE ANXIETY/ DEPRESSION ALLERGIES SULFA (FOR ALLERGY USE ONLY): ANAPHYLAXIS - ALLERGY NEOSPORIN: ANAPHYLAXIS - ALLERGY SOCIAL HISTORY GENERAL: TOBACCO USE ARE YOU A:CURRENT SMOKER ARE YOU INTERESTED IN QUITTING?NOT READY TO QUIT COUNSELED THE PATIENT ON SMOKING EFFECTS, EDUCATION [id number]/12/2020 LATEX QUESTIONNAIRE LATEX ALLERGY : HAVE YOU EVER DEVELOPED ANY TYPE OF REACTION AFTER HANDLING LATEX PRODUCTS SUCH RUBBER GLOVES, CONDOMS, DIAPHRAGMS, BALLOONS, SOCKS, OR UNDERWEAR?NO LATEX ALLERGY : HAVE YOU EVER DEVELOPED ANY TYPE OF REACTION DURING OR AFTER DENTAL APPOINTMENT, VAGINAL/RECTAL EXAMINATION, SURGICAL PROCEDURE, OR ANY OTHER EXPOSURE?NO LATEX RISK : HAVE YOU EVER HAD ANY DIFFICULTY BREATHING OR HIVES AFTER EATING OR HANDLING ANY FRUITS, OR VEGETABLES; SUCH KIWI, BANANAS, STONE FRUITS, OR CHESTNUTSNO LATEX RISK : DO YOU HAVE A PREVIOUS PERSONAL HISTORY OF MORE THAN NINE SURGERIES, SPINA BIFIDA, OR REPEATED CATHERIZATIONS? NO LATEX RISK : ARE YOU FREQUENTLY EXPOSED TO LATEX PRODUCTS IN YOUR OCCUPATION?YES DATE ASKED : 11/24/2020 ALCOHOL USE: YES, A BEER ONCE A WEEK. ALCOHOL SCREENING DID YOU HAVE A DRINK CONTAINING ALCOHOL IN THE PAST YEAR?YES HOW OFTEN DID YOU HAVE SIX OR MORE DRINKS ON ONE OCCASION IN THE PAST YEAR?NEVER (0 POINTS) HOW MANY DRINKS DID YOU HAVE ON A TYPICAL DAY WHEN YOU WERE DRINKING IN THE PAST YEAR?3 OR 4 (1 POINT) HOW OFTEN DID YOU HAVE A DRINK CONTAINING ALCOHOL IN THE PAST YEAR?TWO TO FOUR TIMES A MONTH (2 POINTS) POINTS3 INTERPRETATIONNEGATIVE RECREATIONAL DRUG USE DRUG USE?YES PT SMOKEW MARYJUANA ON A DAILY BASIS AND THC OIL HOW OFTEN AND HOW MUCH? DAILY CAFFEINE CAFFEINE USE?NO SIKH [id number] SCIENTOLOGY LANGUAGE LANGUAGES SPOKEN:GRENADIAN EDUCATION LEVEL OF EDUCATION:HIGH SCHOOL LEARNING BARRIERS / SPECIAL NEEDS BARRIERS TO LEARNING?NO HEARING IMPAIRED?NO VISION IMPAIRED?YES :CORRECTIVE LENSES COGNITIVELY IMPAIRED?NO READINESS TO LEARN?YES LEARNING PREFERENCES?YES :DEMONSTRATION/VERBAL INSTRUCTION LEARNING CAPABILITIES PRESENT?YES EMOTIONAL BARRIERS?NO SPECIAL DEVICES?NO CLINIC SPECIALIST NEEDED?NO DOMESTIC VIOLENCE DO YOU FEEL SAFE IN YOUR ENVIRONMENT?YES OCCUPATION: [employer]. DIET: REGULAR. EXERCISE: DAILY. MARITAL STATUS: SINGLE. - PFS REFERRAL NEEDED?NO CLERGY REFERRAL NEEDED?NO PUBLIC HEALTH REFERRAL NEEDED?NO WAS THE PROVIDER NOTIFIED OF ANY PERTINENT INFO?NO HAS THE PATIENT BEEN EDUCATED REGARDING HIS/HER PLAN OF CARE?YES HAS THE PATIENT BEEN EDUCATED REGARDING PAIN, THE RISK FOR PAIN, THE IMPORTANCE OF EFFECTIVE PAIN MANAGEMENT, AND THE PAIN ASSESSMENT PROCESS?YES ADVANCE DIRECTIVE ADVANCE DIRECTIVE DISCUSSED WITH PATIENT:YES DECLINED HCP INFORMATION. REVIEW OF SYSTEMS CONSTITUTIONAL: ANY RECENT FEVER NO . CHILLS NO . WEIGHT CHANGE OF UNKNOWN REASONS NO . GASTROENTEROLOGY: NEW UNEXPLAINABLE CHANGES IN BOWEL CONTROL NO . CONSTIPATION NO . GENITOURINARY: ANY NEW CHANGE IN BLADDER CONTROL? NO . NEUROLOGY: NEW ONSET DIZZINESS OR NEUROLOGICAL CHANGES NOT MENTIONED NO . NEW NUMBNESS OR PAIN PATTERNS NOT MENTIONED AND PERTINENT TO TODAY'S VISIT NO . CARDIOLOGY: NEW CHEST PRESSURE NO . PATIENT DENIES NO . RESPIRATORY: UNEXPLAINABLE COUGH NO . NEW SHORTNESS OF BREATH NO . VITAL SIGNS WT 155.2 LBS, HT 6', BMI 21.05 INDEX, BP 117/65 MM HG, HR 57 /MIN, RR 18 /MIN, TEMP 98.2 F, OXYGEN SAT % 100%, SAFE IN ENV? (Y/N) YES, NA INITIALS OR 09:57T.EBONY WANG. EXAMINATION GENERAL EXAMINATION: GENERALNO ACUTE DISTRESS, WELL NOURISHED AND HYDRATED. PSYCHAPPROPRIATE MOOD AND AFFECT . LUNGS:CLEAR TO AUSCULTATION BILATERALLY, NO WHEEZES, RHONCHI, RALES. HEART:NO MURMURS, REGULAR RATE AND RHYTHM. ASSESSMENTS TESTICLE PAIN - N50.819 (PRIMARY), RISK: (NULL) TREATMENT TESTICLE PAIN NOTES: 34-YEAR-OLD MALE IN FOR CHRONIC PAIN FOLLOW-UP. GIVEN PRESENTING SYMPTOMS RECOMMENDED CONTINUATION OF CURRENT MEDICATION REGIMEN WITH FOLLOW-UP IN 3 MONTHS. PATIENT WAS INFORMED THAT HE SHOULD BE TAKING HIS MEDICATION PRESCRIBED TO GET THE BEST THERAPEUTIC EFFECT FROM THEM. PATIENT HAS EXPRESSED UNDERSTANDING OF AND WAS IN AGREEMENT WITH TREATMENT PLAN. GIVEN TIME TO ASK QUESTIONS AND EXPRESS CONCERNS. PROCEDURE CODES FA211 ESTABILISHED PATIENT [facility] CHARGE DISPOSITION & COMMUNICATION FOLLOW UP 3 MONTHS (REASON: TESTICULAR PAIN) ELECTRONICALLY SIGNED BY TIFFANIE FAIRCHILD ON 11/25/2020 AT 12:55 PM EDT DISCLAIMER : THIS IS A VISIT SUMMARY EXTRACTED FROM THE [employer] CHART. IT IS NOT A COPY OF THE [employer] PROGRESS NOTE. SHAW
== END ==
LOC: M PAIN 10:00
PROVIDERS: ATTEND Family Medicine
DX: N50.819 Testicular pain, unspecified (principal); F41.9 Anxiety disorder, unspecified; F17.210 Nicotine dependence, cigarettes, uncomplicated; F32.9 Major depressive disorder, single episode, unspecified; Z79.899 Other long term (current) drug therapy; Z88.2 Allergy status to sulfonamides; Z88.8 Allergy status to other drugs, medicaments and biological substances

== ENCOUNTER 2020-11-27 13:01 | Inpatient (IN) | payer OTHER ==
[~2020-11-27] VITALS: Ht 182.9 cm; Wt 71.8 kg
[2020-11-27] MEDS ORDERED: QUET25TA3 PO (13:15)
[2020-11-27] MEDS ORDERED: GABA-845 PO (13:15)
[2020-11-27] MEDS ORDERED: ESCITALOPRAM (13:15)
[2020-11-27 13:44] LABS: HEMATOCRIT 57.9 % (42.0-52.0); HEMOGLOBIN 19.3 g/dl (13.5-17.5); MEAN CORPUSCULAR HEMOGLOBIN 30.2 pg (27.0-33.0); MEAN CORPUSCULAR HGB CONC 33.3 g/dl (32.0-36.5); MEAN CORPUSCULAR VOLUME 90.6 fl (80.0-96.0); PLATELET COUNT, AUTOMATED 140 10^3/uL (150-450); RED BLOOD COUNT 6.39 10^6/uL (4.30-6.10); WHITE BLOOD COUNT 17.7 10^3/uL (4.0-10.0)
[2020-11-27 13:48] LABS: VENOUS BASE EXCESS -6.4 (-2.0-2.0); VENOUS HCO3 19.6 MEQ/L (23.0-27.0); VENOUS O2 SATURATION 58.5 % (60.0-80.0); VENOUS PARTIAL PRESSURE O2 31.9 mmHg (30.0-50.0); VENOUS PH 7.297 UNITS (7.330-7.430); VENOUS STANDARD HCO3 18.3 MEQ/L; VENOUS TOTAL CO2 20.8 MEQ/L (24.0-28.0)
--- NOTE | 2020-11-27 13:57 | REP ---
INDICATION: Drug Overdose. COMPARISON: None. TECHNIQUE: CT BRAIN PERFORMED IN THE AXIAL PLANE. CORONAL RECONSTRUCTION IMAGES ARE PERFORMED. FINDINGS: THE VENTRICLES ARE NORMAL IN SIZE AND POSITION. THERE IS NO MIDLINE SHIFT OR MASS EFFECT. LEWIS-WHITE DIFFERENTIATION IS WELL MAINTAINED. THERE IS NO ACUTE INTRACRANIAL HEMORRHAGE OR EXTRA-AXIAL FLUID COLLECTION. BONE WINDOW EXAMINATION IS UNREMARKABLE. VISUALIZED MASTOID AIR CELLS AND PARANASAL SINUSES ARE CLEAR. No skull fractures seen. There is superficial soft tissue swelling in the right parietal calvarial region. IMPRESSION: NEGATIVE NONCONTRAST CT BRAIN. <Electronically signed by Jono Lewis > 11/27/20 0341
--- NOTE | 2020-11-27 14:02 | REP ---
INDICATION: Drug Overdose. COMPARISON: None. TECHNIQUE: CT cervical spine performed in the axial plane, with sagittal and coronal reconstruction images performed. FINDINGS: There is no acute compression fracture or malalignment. There is no prevertebral soft tissue swelling. Disc spaces are well preserved. There is normal cervical lordosis. There is no abnormal density in the spinal canal. IMPRESSION: No evidence of acute fracture or dislocation. <Electronically signed by Jono Lewis > 11/27/20 [id number]
[2020-11-27 14:10] LABS: ANISOCYTOSIS 1+; ATYPICAL LYMPH 2 % (0-5); LYMPHOCYTES 3 % (16-44); MONOCYTES 9 % (0-5); NEUTROPHILS 79 % (28-66); PLATELET ESTIMATE NORMAL (NORMAL)
[2020-11-27 14:38] LABS: ACETAMINOPHEN LEVEL < 2.0 UG/ML (10.0-30.0); ALBUMIN 4.4 GM/DL (3.2-5.2); ALT/SGPT 425 U/L (12-78); BILIRUBIN,DIRECT 0.5 MG/DL (0.0-0.2); BILIRUBIN,TOTAL 1.8 MG/DL (0.2-1.0); BLOOD UREA NITROGEN 27 MG/DL (7-18); CALCIUM LEVEL 9.1 MG/DL (8.5-10.1); CARBON DIOXIDE LEVEL 24 MEQ/L (21-32); CHLORIDE LEVEL 106 MEQ/L (98-107); CPK CREATINE PHOSPHOKINASE < 7 U/L (39-308); CREATININE FOR GFR 2.51 MG/DL (0.70-1.30); ETHYL ALCOHOL (ETHANOL) < 0.003 % (0.000-0.010); GLOMERULAR FILTRATION RATE 31.5 (>60); GLUCOSE, FASTING 185 MG/DL (70-100); POTASSIUM SERUM 3.9 MEQ/L (3.5-5.1); SALICYLATE LEVEL < 1.7 MG/DL (5.0-30.0); SODIUM LEVEL 139 MEQ/L (136-145); TOTAL PROTEIN 7.7 GM/DL (6.4-8.2)
[2020-11-27 14:39] LABS: AMPHETAMINES LEVEL URINE NEGATIVE (NEGATIVE); BARBITURATES URINE NEGATIVE (NEGATIVE); BENZODIAZEPINES URINE NEGATIVE (NEGATIVE); CANNABINOIDS URINE POSITIVE (NEGATIVE); COCAINE METABOLITE URINE NEGATIVE (NEGATIVE); METHADONE URINE NEGATIVE (NEGATIVE); OPIATES URINE NEGATIVE (NEGATIVE); PHENCYCLIDINE URINE NEGATIVE (NEGATIVE)
[2020-11-27] MEDS ORDERED: NS 1,000 ML IV ONE (14:45)
[2020-11-27 14:53] LABS: OSMOLALITY SERUM 300 MOSM/KG (275-295)
[2020-11-27] MEDS ORDERED: LEXA1TAB PO (15:33)
--- NOTE | 2020-11-27 16:15 | ECGEPIP ---
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
[2020-11-27 16:20] LABS: RSV AMPLIFICATION NEGATIVE (NEGATIVE)
[2020-11-27] MEDS ORDERED: ACETAMINOPHEN TAB 650MG DOSE (2X325MG) PO PRN (16:20)
[2020-11-27] MEDS ORDERED: MAALOX 30 ML SUSP *UDC PO PRN (16:20)
--- NOTE | 2020-11-27 16:54 | REP ---
INDICATION: elevated enzymes. COMPARISON: None. TECHNIQUE: Real-time sonographic evaluation of right upper quadrant performed. FINDINGS: The gallbladder demonstrates no evidence of intraluminal sludge or calculi, wall thickening or pericholecystic fluid. There is no intrahepatic or extrahepatic biliary dilatation, common bile duct measures 3 mm in maximum diameter. The liver demonstrates homogeneous echotexture with no gross mass. Pancreas is not seen due to overlying bowel gas. The right kidney demonstrates no hydronephrosis, with a normal size of 12.3 cm in length. Right renal cortex demonstrates somewhat increased echotexture suggesting possible medical renal disease.No free fluid is seen. IMPRESSION: Somewhat increased echotexture of the right kidney may indicate medical renal disease. Otherwise unremarkable right upper quadrant ultrasound. <Electronically signed by Jono Lewis > 11/27/20 [id number]
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
[2020-11-27 18:40] VITALS: BP 139/82
[2020-11-27] MEDS: NS 1,000 ML IV SCH ×2 (18:52→21:10)
[2020-11-27 20:00] VITALS: BP 130/79
[2020-11-27] MEDS ORDERED: GABAPENTIN 300 MG CAP PO SCH (21:00)
[2020-11-27] MEDS ORDERED: QUEtiapine FUMARATE 25 MG TAB PO SCH (21:00)
--- NOTE | 2020-11-27 23:18 | REPVR ---
PROCEDURE INFORMATION: Exam: XR Bilateral Hips Exam date and time: 11/27/2020 10:46 PM Age: 34 years old Clinical indication: Hip pain and pelvic pain; Bilateral; Additional info: PT. Unable to move right leg TECHNIQUE: Imaging protocol: XR bilateral hips. Views: 2 views of hips with pelvis when performed. COMPARISON: CT ABD PELVIS WITH CONTRAST 07/28/2018 10:00 AM FINDINGS: Bones/joints: Unremarkable. No acute fracture. No dislocation. Soft tissues: Unremarkable. Vasculature: Multiple phleboliths in the pelvis. IMPRESSION: No acute fracture. Electronically signed by: Cornelia Mcdermott On 11/27/2020 23:18:26 PM
[2020-11-28] VITALS: BP 126/78
[2020-11-28] MEDS: NS 1,000 ML IV SCH ×4 (01:20→16:08)
[2020-11-28 04:00] VITALS: BP 131/82
[2020-11-28 05:50] LABS: BASO # 0.1 10^3/uL (0.0-0.2); BASO % 0.3 % (0.0-1.0); HEMATOCRIT 47.8 % (42.0-52.0); HEMOGLOBIN 16.3 g/dl (13.5-17.5); LYMPH # 0.9 10^3/uL (1.5-5.0); LYMPH % 5.3 % (24.0-44.0); MEAN CORPUSCULAR HEMOGLOBIN 30.8 pg (27.0-33.0); MEAN CORPUSCULAR HGB CONC 34.1 g/dl (32.0-36.5); MEAN CORPUSCULAR VOLUME 90.2 fl (80.0-96.0); MONO # 1.6 10^3/uL (0.0-0.8); MONO % 9.3 % (2.0-8.0); NEUTROPHILS # 14.4 10^3/uL (1.5-8.5); NEUTROPHILS % 84.6 % (36.0-66.0); PLATELET COUNT, AUTOMATED 114 10^3/uL (150-450)
[2020-11-28 06:24] LABS: ALBUMIN 2.9 GM/DL (3.2-5.2); ALT/SGPT 327 U/L (12-78); BILIRUBIN,TOTAL 1.7 MG/DL (0.2-1.0); BLOOD UREA NITROGEN 21 MG/DL (7-18); CARBON DIOXIDE LEVEL 23 MEQ/L (21-32); CHLORIDE LEVEL 109 MEQ/L (98-107); CREATININE FOR GFR 1.26 MG/DL (0.70-1.30); GLOMERULAR FILTRATION RATE > 60.0 (>60); GLUCOSE, FASTING 121 MG/DL (70-100); SODIUM LEVEL 140 MEQ/L (136-145); TOTAL PROTEIN 5.5 GM/DL (6.4-8.2)
[2020-11-28 08:15] VITALS: BP 129/79
[2020-11-28] MEDS: ESCITALOPRAM OXALATE 10 MG TAB (LEXAPRO) PO SCH (09:47)
[2020-11-28 10:36] LABS: HEPATITIS B SURFACE ANTIGEN NEGATIVE (NEGATIVE)
[2020-11-28 11:04] LABS: HEPATITIS B CORE ANTIBODY IGM NEGATIVE (NEGATIVE); HEPATITIS C VIRUS ABY INDEX < 0.0 INDEX (<0.8)
--- NOTE | 2020-11-28 11:22 | IPNPDOC ---
Subjective Date Seen The patient was seen on 11/28/20. Subjective Chief Complaint/HPI Mr. Torres is a 34 year old male who was presents with AMS. This morning, his right side is still sore. Mainly his right scalp and right hand. Right hand is also still swollen. Right scalp has yellow crusting and erythema. Will start antibiotic. Otherwise denies chest pain or dyspnea. Urine is still dark. Objective Physical Examination General Exam: Positive: Alert, Cooperative, Other (very lethargic) Eye Exam: Positive: EOMI; Negative: Sclera icteric ENT Exam: Positive: Other ENT (Bruise on right temporal/parietal region. Yellow crusting. Erythema) Chest Exam: Positive: Clear to auscultation; Negative: Rales, Rhonchi, Wheezing Heart Exam: Positive: Tachycardic, Regular Rhythm Abdomen Exam: Positive: Normal bowel sounds, Soft, Tenderness (mild tendernes in lower abdomen) Extremity Exam: Negative: Edema Neuro Exam: Positive: Normal Speech, Strength at 5/5 X4 ext, Cranial Nerves 3- 12 NL Psych Exam: Positive: Mental status NL, Mood NL Assessment /Plan Assessment Mr. Torres is a 34 year old male who was presents with AMS. Mother last spoke with patient on Saturday, and he was normal. Over the weekend, it was unclear what he did, but he drank alcohol with friends and smoked marijuana. Saturday, he was disheveled and confused. Work up significant for hemoconcentrat ion and CRISTINO. He received 1L bolus and IVF. Will continue with hydration. For tramsaminitis will give check hepatitis panel and liver ultrasound. Supportive care at this time. Be cautious with acetaminophen. The following morning, his labs are improved. Still has CRISTINO and transaminitis. Hepatitis B and C are negative, pending Hepatitis A results. US liver unremarkable. Otherwise, he has some erythema and serous drainage from right scalp. Will start on Doxycycline. Plan/VTE VTE Prophylaxis Ordered?: Yes Plan 1. Acute kidney injury -Most likely secondary to dehydration -IVF -Supportive care, avoid nephrotoxic agents -Monitor renal function 2. Leukocytosis and erythrocytosis -Possibly secondary to hemoconcentration from dehydration -IVF -Monitor CBC -Erythrocytosis improve with fluids, but not leukocytosis 3. Cellulitis of right scalp -Serous drainage -Tender and erythematous -Has leukocytosis -Start Doxycycline day 1 4. Transaminitis -Unclear etiology, alcohol level negative but AST/ALT ratio is 4.7 -Acetaminophen level negative -Hepatitis panel and Liver US ordered. Both negative -Supportive care and cautious with acetaminophen 5. Lethargy and AMS -Unclear etiology, possibly due to a combination of dehydration, kidney injury, and liver injury in the setting of gabapentin and quetiapine use. -Hold gabapentin and quetiapine on admission due to lethargy. -More awake today, will restart gabapentin at lower dose (300mg TID instead of 400mg TID) and quetiapine 6. DVT ppx -SCD and TEDs Disposition: pending clinical improvement and improvement in renal function VS, I&O, 24H, Fishbone Vital Signs/I&O Vital Signs Date Time Temp Pulse Resp B/P (MAP) Pulse Ox O2 Delivery O2 Flow Rate FiO2 11/28/20 08:15 98.5 91 16 129/79 (96) 100 11/28/20 04:00 Room Air I&O- Last 24 Hours up to 6 AM 11/28/20 06:00 Intake Total 2710 ml Output Total 900 ml Balance 1810 ml Laboratory Data 24H LABS Laboratory Tests 2 11/27/20 13:35: Neutrophils (%) (Auto) , Nucleated Red Blood Cells % (auto) 0.0, Neutrophils 79H, Band Neutrophils 7, Lymphocytes (Manual) 3L, Monocytes (Manual) 9H, Atypical Lymphocytes 2, Hypochromasia , Anisocytosis 1+, Platelet Estimate NORMAL, Blood Gas Bicarbonate Standard 18.3, Venous Blood pH 7.297L, Venous Blood Partial Pressure CO2 41.0, Venous Blood Partial Pressure O2 31.9, Venous Blood Total Carbon Dioxide 20.8L, Venous Blood HCO3 19.6L, Venous Blood Oxygen Saturation 58.5L, Venous Blood Base Excess -6.4L, Anion Gap 9, Glomerular Filtration Rate 31.5L, Osmolality 300H, Lactic Acid Level 4.5*H, Calcium Level 9.1, Total Bilirubin 1.8H, Direct Bilirubin 0.5H, Aspartate Amino Transf (AST/SGOT) 2021H, Alanine Aminotransferase (ALT/SGPT) 425H, Alkaline Phosphatase 92, Total Creatine Kinase < 7L, Total Protein 7.7, Albumin 4.4, Albumin/Globulin Ratio 1.3, Thyroid Stimulating Hormone (TSH) 1.150, Salicylates Level < 1.7L, Urine Opiates Screen NEGATIVE, Urine Methadone Screen NEGATIVE, Acetaminophen Level < 2.0L, Urine Barbiturates Screen NEGATIVE, Urine Phencyclidine Screen NEGATIVE, Urine Amphetamines Screen NEGATIVE, Urine Benzodiazepines Screen NEGATIVE, Urine Cocaine Metabolite Screen NEGATIVE, Urine Cannabinoids Screen POSITIVEH, Ethyl Alcohol Level < 0.003, Hepatitis B Surface Antigen NEGATIVE, Hepatitis B Core IgM Antibody NEGATIVE, Hepatitis C Antibody Index < 0.0 11/27/20 15:22: Ammonia 17, Coronavirus (COVID-19)(PCR) NEGATIVE, Influenza Type A (RT-PCR) NEGATIVE, Influenza Type B (RT-PCR) NEGATIVE, Respiratory Syncytial Virus (PCR) NEGATIVE 11/27/20 18:41: Lactic Acid Followup at 4 Hours 2.8*H 11/27/20 18:55: Urine Color YELLOW, Urine Appearance HAZY, Urine pH 6.0, Urine Specific [place] 1.017, Urine Protein 2+H, Urine Glucose (UA) NEGATIVE, Urine Ketones TRACEH, Urine Blood 3+H, Urine Nitrite NEGATIVE, Urine Bilirubin NEGATIVE, Urine Urobi linogen 0.2, Urine Leukocyte Esterase NEGATIVE, Urine WBC (Auto) 17H, Urine RBC (Auto) 0, Urine Hyaline Casts (Auto) 0, Urine Bacteria (Auto) NEGATIVE, Urine Squamous Epithelial Cells 1, Urine Sperm (Auto) 11/28/20 05:24: Immature Granulocyte % (Auto) 0.5, Neutrophils (%) (Auto) 84.6H, Lymphocytes (%) (Auto) 5.3L, Monocytes (%) (Auto) 9.3H, Eosinophils (%) (Auto) 0.0, Basophils (%) (Auto) 0.3, Neutrophils # (Auto) 14.4H, Lymphocytes # (Auto) 0.9L, Monocytes # (Auto) 1.6H, Eosinophils # (Auto) 0.0, Basophils # (Auto) 0.1, Nucleated Red Blood Cells % (auto) 0.0, Anion Gap 8, Glomerular Filtration Rate > 60.0, Calcium Level 8.0L, Total Bilirubin 1.7H, Aspartate Amino Transf (AST/SGOT) 1121H, Alanine Aminotransferase (ALT/SGPT) 327H, Alkaline Phosphatase 69, Total Protein 5.5#L, Albumin 2.9#L, Albumin/Globulin Ratio 1.1 CBC/BMP Laboratory Tests 11/27/20 13:35 4/12/21 05:24 Microbiology Microbiology 11/27/20 Urine Culture, Received Pending JONI GIL DO Nov 28, 2020 11:22
[2020-11-28] MEDS: DOXYCYCLINE HYCLATE 100 MG in D5W MINI-BAG PLUS 100 ML IV SCH ×2 (12:01→23:32)
[2020-11-28 12:21] VITALS: BP 133/83
[2020-11-28 12:34] LABS: HEPATITIS A ANTIBODY IGM NEGATIVE (NEGATIVE)
[2020-11-28] MEDS: GABAPENTIN 400MG CAP PO SCH ×2 (16:07→20:29)
[2020-11-28 16:52] VITALS: BP 119/71
--- NOTE | 2020-11-28 18:49 | REP ---
INDICATION: Right hand/arm swelling. COMPARISON: None. TECHNIQUE: Multiple ultrasonographic images of the deep venous structures of the right upper extremity were obtained to rule out deep venous thrombosis. FINDINGS: There is no abnormal echogenic material seen in any of the visualized deep venous structures of the right upper extremity. Coaptation where applicable is appropriate throughout. IMPRESSION: Negative exam. <Electronically signed by Jose Hinkle > 11/28/20 [id number]
[2020-11-28 20:00] VITALS: BP 106/63
[2020-11-28] MEDS: QUEtiapine FUMARATE 25 MG TAB PO SCH (20:30)
[2020-11-29] VITALS: BP 116/74
[2020-11-29 04:00] VITALS: BP 117/75
[2020-11-29 06:40] LABS: HEMATOCRIT 39.1 % (42.0-52.0); MEAN CORPUSCULAR HEMOGLOBIN 30.8 pg (27.0-33.0); MEAN CORPUSCULAR HGB CONC 34.3 g/dl (32.0-36.5); MEAN CORPUSCULAR VOLUME 89.9 fl (80.0-96.0); PLATELET COUNT, AUTOMATED 103 10^3/uL (150-450); RED BLOOD COUNT 4.35 10^6/uL (4.30-6.10); WHITE BLOOD COUNT 11.8 10^3/uL (4.0-10.0)
[2020-11-29 06:44] LABS: HEMOGLOBIN 13.4 g/dl (13.5-17.5)
[2020-11-29 07:01] LABS: ALBUMIN 2.4 GM/DL (3.2-5.2); ALT/SGPT 255 U/L (12-78); BILIRUBIN,TOTAL 1.3 MG/DL (0.2-1.0); BLOOD UREA NITROGEN 13 MG/DL (7-18); CALCIUM LEVEL 8.1 MG/DL (8.5-10.1); CARBON DIOXIDE LEVEL 28 MEQ/L (21-32); CHLORIDE LEVEL 105 MEQ/L (98-107); CREATININE FOR GFR 0.88 MG/DL (0.70-1.30); GLOMERULAR FILTRATION RATE > 60.0 (>60); GLUCOSE, FASTING 105 MG/DL (70-100); POTASSIUM SERUM 3.8 MEQ/L (3.5-5.1); SODIUM LEVEL 137 MEQ/L (136-145); TOTAL PROTEIN 4.8 GM/DL (6.4-8.2)
[2020-11-29] MEDS ORDERED: DOXY-350 PO (07:43)
[2020-11-29] MEDS ORDERED: CEPH500T PO (07:43)
[2020-11-29 07:45] VITALS: BP 122/72
[2020-11-29] MEDS: CEPHALEXIN 500 MG CAP PO SCH ×4 (08:47→20:35)
[2020-11-29] MEDS: NS 1,000 ML IV SCH (08:47)
[2020-11-29] MEDS: GABAPENTIN 400MG CAP PO SCH ×3 (08:48→20:35)
[2020-11-29] MEDS: ESCITALOPRAM OXALATE 10 MG TAB (LEXAPRO) PO SCH (08:48)
[2020-11-29] MEDS: DOXYCYCLINE HYCLATE 100MG TABLET PO SCH ×2 (08:48→20:35)
[2020-11-29 10:30] LABS: CHOLESTEROL LEVEL 89 MG/DL (<200); CHOLESTEROL RISK RATIO 1.977 (<5); HDL CHOLESTEROL 45 MG/DL (>40); LDL CHOLESTEROL 30 MG/DL (<100); NON-HDL-C 44 MG/DL; TRIGLYCERIDES LEVEL 71 MG/DL (<150)
--- NOTE | 2020-11-29 10:44 | REP ---
INDICATION: b/l le pain COMPARISON: None. TECHNIQUE: AP and frog-lateral views of the right and left femur FINDINGS: The osseous structures and joint spaces are intact and normal. There is no evidence for acute fracture or dislocation. Surrounding soft tissues are unremarkable. No subcutaneous emphysema or radiodense foreign body. IMPRESSION: Normal bilateral femur series. No acute fracture or dislocation. <Electronically signed by Jonas Aquino > 11/29/20 1042
--- NOTE | 2020-11-29 10:47 | REP ---
INDICATION: b/l leg pain COMPARISON: None. TECHNIQUE: AP and lateral views of the right and left tibia/fibula FINDINGS: The osseous structures and joint spaces are intact and normal. There is no evidence for acute fracture or dislocation. Surrounding soft tissues are unremarkable. No subcutaneous emphysema or radiodense foreign body. IMPRESSION: Normal bilateral tibia/fibular radiograph series. No acute fracture or dislocation. <Electronically signed by Jonas Aquino > 11/29/20 1046
[2020-11-29] MEDS: PERCOCET 5MG/325MG TAB PO SCH ×3 (10:53→20:37)
[2020-11-29 12:00] VITALS: BP 131/68
--- NOTE | 2020-11-29 12:27 | IPN ---
PROGRESS NOTE DATE: 11/29/2020 SUBJECTIVE: Patient complains of right leg pain, unable to ambulate secondary to pain. No recent history of trauma. He also complains of right arm and hand swelling. Ultrasound was negative for DVT. No I.V. site was placed. I.V. fluids have been discontinued. Patient is tolerating his diet, back to his baseline mentation. He continues to have cellulitis and purulent drainage of the right scalp on antibiotics. Afebrile, no chills overnight. OBJECTIVE: Vital signs: Temperature 97.6, pulse 89, sinus rhythm, respiratory rate 18, blood pressure 122/72, 99% on room air. General: Awake, alert, oriented to person, place and time, answering questions appropriately, no use of respiratory accessory muscles. HEENT: Anicteric, no jaundice, icterus, pallor. Patient has purulent drainage of the right scalp. No blood. Dry mucous membranes. Lungs: Clear to auscultation, no wheezes, rhonchi or rales. Heart: S1 and S2 sinus rhythm. Abdomen: Soft, slightly tender in the lower abdomen on the right. Extremities: Edema noted right upper extremity, no pitting edema in the lower extremities. Gait was not tested. Motor function is 5/5 times 5 extremities. No sensory disturbance. LABORATORY DATA: White count 11.8, hemoglobin 13, hematocrit 39, platelet count 103, previous platelet count on admission was 140. Sodium 137, potassium 3.8, chloride 105, bicarb 28, BUN 13, creatinine 0.88, glucose 105. Total bilirubin 1.3 decreased from 1.7, AST 678, ALT 255. Fasting lipids within normal limits. 11/27/2020 urine culture no growth. IMAGING STUDIES: Tib-fib x-ray bilaterally: Normal bilateral tib-fib x-ray, no acute fracture or dislocation. Femoral x-ray bilaterally: Normal bilateral femur series, no acute fracture or dislocation. Pelvic x-ray: No acute fracture. Vascular ultrasound right upper extremity: No DVT. ASSESSMENT/PLAN: This is a 34-year-old male who lives alone with history of prostatitis, anxiety/depression, marijuana use brought in due to altered mental status and acute kidney injury. Patient complained of gait abnormality due to severe pain with right leg pain. Venous Doppler right extremity negative for DVT. Bilateral hip femoral and tib-fib x-rays were normal without acute fracture or dislocation. Patient is currently being treated for the following issues: 1. Right scalp cellulitis: On Unasyn currently transitioning to doxycycline for possible MRSA infection as well as cephalexin 500 four times a day. 2. Acute kidney injury due to dehydration, decreased oral intake: Resolved status post I.V. fluids. 3. Right upper extremity and hand swelling: No signs of cellulitis. No DVT on exam. I.V. fluids have been discontinued. 4. Transaminitis: Alcohol level negative, but AST/ALT ratio is 4:7. Hepatitis serology is negative. Low volt ultrasound had no biliary ductal dilatation. Limit acetaminophen products to 3 grams per 24 hours. 5. Acute metabolic encephalopathy due to acute kidney injury, dehydration, infection due to scalp cellulitis: Patient's gabapentin and quetiapine were held on admission and resumed yesterday. He seems to be back to baseline. 6. Disposition: Patient is having difficulty with ambulation and has to walk to work about a mile as well as unable to go up the stairs and lives on the second floor. Patient's discharge will be postponed today until he is further evaluated by the acute rehab unit, OT, physical therapy. Patient is medically stable for transfer to [facility] floor. Discharge in the morning if ambulation is improved.
[2020-11-29 14:28] VITALS: BP 131/58
[2020-11-29] MEDS: QUEtiapine FUMARATE 25 MG TAB PO SCH (20:35)
[2020-11-29 22:00] VITALS: BP 116/62
[2020-11-30 06:00] VITALS: BP 109/62
[2020-11-30] MEDS ORDERED: ISOVUE-370 76% 100ML VIAL As Ordered ONE (08:08)
[2020-11-30] MEDS: IBUPROFEN 400MG TAB PO SCH ×4 (08:52→22:18)
[2020-11-30] MEDS: DOXYCYCLINE HYCLATE 100MG TABLET PO SCH ×2 (08:52→22:17)
[2020-11-30] MEDS: ESCITALOPRAM OXALATE 10 MG TAB (LEXAPRO) PO SCH (08:52)
[2020-11-30] MEDS: CEPHALEXIN 500 MG CAP PO SCH ×4 (08:53→22:17)
[2020-11-30] MEDS: PERCOCET 5MG/325MG TAB PO SCH ×3 (08:53→22:17)
[2020-11-30] MEDS: GABAPENTIN 400MG CAP PO SCH ×3 (08:58→22:17)
--- NOTE | 2020-11-30 09:55 | REP ---
INDICATION: unable to ambulate pain. COMPARISON: None. TECHNIQUE: Axial contrast-enhanced images of the bilateral femurs with coronal and sagittal reformations using 100 cc Isovue 370 intravenous contrast material. FINDINGS: There is asymmetric presumed edematous enlargement and mild heterogeneity primarily involving the abductor muscle group of the right lower extremity from the visualized posterior pelvis through the posterolateral musculature to the level of the mid/distal femur with moderate amount of subcutaneous edematous infiltration. No discrete focal drainable collection or abscess is identified. The osseous structures appear intact and normal. The joint spaces are relatively normal and without fluid collection/fusion. The vasculature is normal. The left lower extremity musculature as well as the osseous structures, vasculature and surrounding subcutaneous tissues are all normal. IMPRESSION: 1. Edematous asymmetric enlargement of the right lower extremity abductor musculature with overlying subcutaneous edematous infiltration. Findings require correlation. Differential diagnosis includes myositis and other infectious/inflammatory processes. The osseous structures are intact and normal. <Electronically signed by Jonas Aquino > 11/30/20 0952
[2020-11-30 09:56] LABS: ALBUMIN 2.3 GM/DL (3.2-5.2); ALT/SGPT 237 U/L (12-78); BILIRUBIN,TOTAL 1.3 MG/DL (0.2-1.0); BLOOD UREA NITROGEN 17 MG/DL (7-18); CALCIUM LEVEL 8.1 MG/DL (8.5-10.1); CARBON DIOXIDE LEVEL 31 MEQ/L (21-32); CHLORIDE LEVEL 101 MEQ/L (98-107); CREATININE FOR GFR 0.85 MG/DL (0.70-1.30); GLOMERULAR FILTRATION RATE > 60.0 (>60); GLUCOSE, FASTING 71 MG/DL (70-100); POTASSIUM SERUM 3.7 MEQ/L (3.5-5.1); SODIUM LEVEL 137 MEQ/L (136-145); TOTAL PROTEIN 4.9 GM/DL (6.4-8.2)
--- NOTE | 2020-11-30 10:00 | REP ---
INDICATION: unable to ambulate pain. COMPARISON: None. TECHNIQUE: Axial noncontrast images of the bilateral tibia/fibula with coronal and sagittal reformations using 100 cc Isovue 370 intravenous contrast material. FINDINGS: The left lower extremity appears normal. Right lower extremity demonstrates subcutaneous edema/infiltration and mild fascial thickening extending from the visualized distal femur through the knee to the level of the proximal tibial/fibular metadiaphysis. The vascular structures are normal. No drainable collection or abscess identified. The osseous structures are normal. IMPRESSION: [id number] presumed inflammatory changes with subcutaneous edema/infiltration along the right lower extremity extending from the distal femur to the proximal tibial/fibular metadiaphysis. <Electronically signed by Jonas Aquino > 11/30/20 0956
[2020-11-30] MEDS: predniSONE 20 MG TAB PO SCH (11:07)
[2020-11-30 11:59] LABS: CPK CREATINE PHOSPHOKINASE 9816 U/L (39-308)
--- NOTE | 2020-11-30 13:31 | IPN ---
PROGRESS NOTE DATE: 11/30/2020 SUBJECTIVE: Patient continues to complain of weakness, unable to ambulate due to right lower extremity pain. Swelling in the right upper extremity has been evaluated with ultrasound negative for DVT and has been decreasing with elevation. No fever or chills overnight. No muscle aches. Currently on Percocet 1 tablet three times a day and ibuprofen. Creatinine has been normal. OBJECTIVE: Vital signs: Temperature 97.9, pulse 80, respiratory rate 16, blood pressure 109/62, 99% on room air. General: Awake, alert, oriented to person, place and time, answering questions appropriately. HEENT: Right scalp cellulitis improving, purulent drainage resolved. Anicteric, no jaundice, icterus, pallor. Dry mucous membranes. Lungs: Clear to auscultation, no wheezes, rhonchi or rales. Heart: S1 and S2 sinus rhythm, no murmurs, rubs or gallops. Abdomen: Soft, nontender, nondistended, positive bowel sounds. Extremities: Edema right hand is improving. No erythema, induration or crepitus. Right lower extremity has persistent pain and swelling. Gait was not tested. LABORATORY DATA: 11/29/2020 labs reviewed. 11/30/2020 metabolic panel, liver function tests noted. ASSESSMENT: This is a 34-year-old male admitted due to altered mental status, urine tox screen positive for marijuana, with acute kidney injury admitted for the following issues: 1. Right scalp cellulitis: Previously on Unasyn now on doxycycline and cephalexin. 2. Acute kidney injury: Resolved, due to dehydration and decreased oral intake. Total CK was not obtained and urine myoglobin to rule out rhabdomyolysis on admission, resolved. 3. Right upper extremity and hand swelling: No DVT on ultrasound. I.V. fluids have been discontinued. Improving. No signs of cellulitis. 4. Right lower extremity pain and swelling, inability to ambulate: X-ray tib-fib bilaterally, pelvis all negative. CT shows edema, possible myositis. ELISA, anti-Yoko rheumatology work-up sent. Prednisone for now, pain control and continue PT/OT. Rheumatology follow up and referral as outpatient. 5. Transaminitis: AST/ALT is 4.7. Alcohol level negative. Hepatitis serology negative. Ultrasound of the liver showed no biliary ductal dilatation. 6. Acute metabolic encephalopathy: Improved back to baseline. 7. Positive marijuana on urine toxicology screen: Recreational drug use cessation counseling has been provided. 8. Disposition: Patient has no other acute medical issues, awaiting for improvement in his ambulation, therefore changed to ALC status, continue with prednisone. Complete full course of antibiotics for scalp cellulitis. Outpatient follow up with rheumatology for a new referral for myositis. Await serology results. [facility]
[2020-11-30 22:00] VITALS: BP 106/62
[2020-11-30] MEDS: QUEtiapine FUMARATE 25 MG TAB PO SCH (22:18)
[2020-12-01 06:00] VITALS: BP 102/61
[2020-12-01] MEDS: DOXYCYCLINE HYCLATE 100MG TABLET PO SCH ×2 (08:40→21:12)
[2020-12-01] MEDS: predniSONE 20 MG TAB PO SCH (08:40)
[2020-12-01] MEDS: CEPHALEXIN 500 MG CAP PO SCH ×4 (08:41→21:12)
[2020-12-01] MEDS: GABAPENTIN 400MG CAP PO SCH ×3 (08:41→21:12)
[2020-12-01] MEDS: ESCITALOPRAM OXALATE 10 MG TAB (LEXAPRO) PO SCH (08:41)
[2020-12-01] MEDS: IBUPROFEN 400MG TAB PO SCH ×2 (08:42→12:59)
[2020-12-01] MEDS: PERCOCET 5MG/325MG TAB PO SCH ×3 (08:44→21:13)
--- NOTE | 2020-12-01 10:34 | REP ---
INDICATION: weakness /edema. COMPARISON: Radiographs 11/29/2020, CT 11/30/2020. TECHNIQUE: Multiple sequences obtained in the axial, coronal and sagittal planes. FINDINGS: The right femur demonstrates normal bone marrow signal. There is no bone marrow edema or occult fracture. Cortex is intact with normal signal. Moderately severe diffuse edema is seen in the right gluteus amber and medius muscles. There is moderate diffuse edema throughout the vastus lateralis muscle. There is mild diffuse edema in the obturator externus muscle. Minimal scattered edema is seen in the vastus intermedius and medialis muscles. There is diffuse moderately severe subcutaneous soft tissue edema throughout the thigh and visualized gluteal region. No fluid collection is seen.. IMPRESSION: Moderately severe diffuse edema involving the right gluteus medius and amber muscles and vastus lateralis muscle. Mild diffuse edema in the obturator externus muscle, with minimal scattered edema in the vastus intermedius and medialis muscles. Differential diagnosis is extremely broad and would include various etiologies for myositis and rhabdomyolysis. <Electronically signed by Jono Lewis > 12/01/20 0364
--- NOTE | 2020-12-01 10:41 | REP ---
INDICATION: weakness /edema. COMPARISON: Radiographs 11/29/2020, CT 11/30/2020. TECHNIQUE: Multiple sequences obtained in the axial, coronal and sagittal planes. FINDINGS: The tibia and fibula demonstrate normal bone marrow signal. There is no bone marrow edema or occult fracture. Normal low signal cortex is visualized and is intact. The musculature of the lower leg demonstrates no abnormal signal or edema. No fluid collection is seen. Moderate superficial subcutaneous soft tissue edema is seen posteriorly in the superior 2/3 of the lower leg. IMPRESSION: Superficial subcutaneous soft tissue edema posteriorly in the upper 2/3 of the lower leg. No underlying osseous or muscular abnormality. <Electronically signed by Jono Lewis > 12/01/20 1037
[2020-12-01 11:07] LABS: ANTINUCLEAR ANTIBODIES DIRECT Negative (Negative)
[2020-12-01 14:00] VITALS: BP 127/72
[2020-12-01] MEDS: QUEtiapine FUMARATE 25 MG TAB PO SCH (21:12)
[2020-12-01 22:00] VITALS: BP 128/69
[2020-12-02 06:00] VITALS: BP 103/58
[2020-12-02] MEDS ORDERED: LIDOCAINE 5% (LIDODERM) PATCH TD ONE (06:50)
[2020-12-02 07:24] LABS: BASO % 0.1 % (0.0-1.0); EOS % 0.1 % (0.0-3.0); HEMATOCRIT 30.8 % (42.0-52.0); HEMOGLOBIN 10.4 g/dl (13.5-17.5); LYMPH # 1.3 10^3/uL (1.5-5.0); LYMPH % 17.4 % (24.0-44.0); MEAN CORPUSCULAR HEMOGLOBIN 30.7 pg (27.0-33.0); MEAN CORPUSCULAR HGB CONC 33.8 g/dl (32.0-36.5); MEAN CORPUSCULAR VOLUME 90.9 fl (80.0-96.0); MONO % 13.1 % (2.0-8.0); NEUTROPHILS # 5.1 10^3/uL (1.5-8.5); NEUTROPHILS % 68.9 % (36.0-66.0); PLATELET COUNT, AUTOMATED 129 10^3/uL (150-450); RED BLOOD COUNT 3.39 10^6/uL (4.30-6.10); WHITE BLOOD COUNT 7.4 10^3/uL (4.0-10.0)
[2020-12-02 07:35] LABS: ALBUMIN 2.5 GM/DL (3.2-5.2); ALT/SGPT 231 U/L (12-78); BILIRUBIN,TOTAL 1.3 MG/DL (0.2-1.0); BLOOD UREA NITROGEN 21 MG/DL (7-18); C REACTIVE PROTEIN QUANTITATIV 3.36 MG/DL (0.00-0.30); CALCIUM LEVEL 8.2 MG/DL (8.5-10.1); CARBON DIOXIDE LEVEL 30 MEQ/L (21-32); CHLORIDE LEVEL 108 MEQ/L (98-107); CREATININE FOR GFR 0.82 MG/DL (0.70-1.30); GLOMERULAR FILTRATION RATE > 60.0 (>60); GLUCOSE, FASTING 111 MG/DL (70-100); POTASSIUM SERUM 3.5 MEQ/L (3.5-5.1); SODIUM LEVEL 143 MEQ/L (136-145)
[2020-12-02 08:03] LABS: ERYTHROCYTE SEDIMENTATION RATE 31 mm/hr (0-15)
[2020-12-02] MEDS: CEPHALEXIN 500 MG CAP PO SCH ×3 (08:11→15:54)
[2020-12-02] MEDS: DOXYCYCLINE HYCLATE 100MG TABLET PO SCH (08:12)
[2020-12-02] MEDS: predniSONE 20 MG TAB PO SCH (08:12)
[2020-12-02] MEDS: GABAPENTIN 400MG CAP PO SCH ×2 (08:12→15:55)
[2020-12-02] MEDS: ESCITALOPRAM OXALATE 10 MG TAB (LEXAPRO) PO SCH (08:12)
[2020-12-02] MEDS: PERCOCET 5MG/325MG TAB PO SCH ×2 (08:14→15:55)
[2020-12-02] MEDS ORDERED: SENNA 8.6 MG TAB (SENOKOT) PO PRN (08:50)
[2020-12-02] MEDS ORDERED: PERC5TAB12 PO ×2 (11:58→12:17)
--- NOTE | 2020-12-02 12:06 | DS.PDOC ---
Discharge Summary General Date of Admission Nov 27, 2020 at 16:20 Date of Discharge 12/02/20 changed to alc/snf 11/30/20 Discharge Summary DISCHARGE DIAGNOSES: Marijuana Abuse Acute toxic/metabolic encephalopathy due to recreational drug use Acute Rhabdomyolysis Acute kidney injury Acute myositis NEGATIVE ELISA Scalp Cellulitis Right hand and right leg edema NEGATIVE DVT/FRACTURE Transaminitis NEGATIVE HEPATITIS SEROLOGY DISCHARGE INSTRUCTIONS: REFRAIN FROM RECREATIONAL DRUG USE OUTPATIENT REFERRAL FOR DRUG CESSATION COUNSELLING PCP FU 5DAYS DISCHARGE MEDICATIONS: SEE BELOW HOSPITAL COURSE: a 34-year-old male admitted due to altered mental status, urine tox screen positive for marijuana, with acute kidney injury admitted for: 1. Right scalp cellulitis: Previously on Unasyn now on doxycycline and cephalexin. 2. Acute kidney injury/ acute rhabdomyolysis: Resolved, due to dehydration and decreased oral intake. Total CK was not obtained and urine myoglobin to rule out rhabdomyolysis on admission, resolved. 3. Right upper extremity and hand swelling: No DVT on ultrasound. I.V. fluids have been discontinued. Improving. No signs of cellulitis. 4. Right lower extremity pain and swelling, inability to ambulate: X-ray tib-fib bilaterally, pelvis all negative. CT shows edema, possible myositis. ELISA, anti-Yoko rheumatology work-up sent. tried on Prednisone, but discontinued due to negative ELISA, pain control and continue PT/OT. Rheumatology follow up and referral as outpatient if PCP sees new rheumatological symptoms 5. Transaminitis: AST/ALT is 4.7. Alcohol level negative. Hepatitis serology negative. Ultrasound of the liver showed no biliary ductal dilatation. 6. Acute metabolic/TOXIC encephalopathy: due to recreational drug use, cellulitis and acute kidney injury with rhabdomyolysis. Improved back to baseline. 7. Positive marijuana on urine toxicology screen: Recreational drug use cessation counseling has been provided. DISCHARGE PHYSICAL EXAMINATION: General: Awake, alert, oriented to person, place and time, answering questions appropriately. HEENT: Right scalp cellulitis improving, purulent drainage resolved. Anicteric, no jaundice, icterus, pallor. Dry mucous membranes. Lungs: Clear to auscultation, no wheezes, rhonchi or rales. Heart: S1 and S2 sinus rhythm, no murmurs, rubs or gallops. Abdomen: Soft, nontender, nondistended, positive bowel sounds. Extremities: Edema right hand is improving. No erythema, induration or crepitus. Right lower extremity has persistent pain and swelling. Gait was not tested. LABORATORY DATA, IMAGING, MICROBIOLOGY: SEE BELOW TIME SPENT ON DISCHARGE 30M IN. Vital Signs/I&Os Vital Signs Date Time Temp Pulse Resp B/P (MAP) Pulse Ox O2 Delivery O2 Flow Rate FiO2 12/02/20 08:44 16 Room Air 12/02/20 06:00 97.9 76 103/58 (73) 100 I&O- Last 24 Hours up to 6 AM 12/02/20 06:00 Intake Total 1040 ml Output Total 100 ml Balance 940 ml Laboratory Data Labs 24H Laboratory Tests 2 12/02/20 05:54: Immature Granulocyte % (Auto) 0.4, Neutrophils (%) (Auto) 68.9H, Lymphocytes (%) (Auto) 17.4L, Monocytes (%) (Auto) 13.1H, Eosinophils (%) (Auto) 0.1, Basophils (%) (Auto) 0.1, Neutrophils # (Auto) 5.1, Lymphocytes # (Auto) 1.3L, Monocytes # (Auto) 1.0H, Eosinophils # (Auto) 0.0, Basophils # (Auto) 0.0, Nucleated Red Blood Cells % (auto) 0.0, Erythrocyte Sedimentation Rate 31H, Anion Gap 5L, Glomerular Filtration Rate > 60.0, Calcium Level 8.2L, Total Bilirubin 1.3H, Aspartate Amino Transf (AST/SGOT) 311H, Alanine Aminotransferase (ALT/SGPT) 231H, Alkaline Phosphatase 63, C-Reactive Protein, Quantitative 3.36H, Total Protein 5.0L, Albumin 2.5L, Albumin/Globulin Ratio 1.0 CBC/BMP Laboratory Tests 12/02/20 05:54 Microbiology Microbiology 11/27/20 Urine Culture - Final, Complete Discharge Medications Scheduled Cephalexin (Cephalexin) 500 Mg Tablet, 500 MG PO QID Doxycycline Monohydrate (Doxycycline) 100 Mg Capsule, 100 MG PO BID Escitalopram Oxalate (Lexapro) 10 Mg Tablet, 10 MG PO DAILY, (Reported) Gabapentin (Gabapentin) 400 Mg Capsule, 400 MG PO TID, (Reported) Quetiapine Fumarate (Quetiapine Fumarate) 25 Mg Tablet, 25 MG PO QHS, (Reported) Allergies Coded Allergies: Sulfa (Sulfonamide Antibiotics) (Verified Allergy, Severe, anaphylaxis, 11/27/20) bacitracin (Verified Allergy, Mild, rash, 11/27/20) neomycin (Verified Allergy, Mild, rash, 11/27/20) polymyxin B (Verified Allergy, Mild, rash, 11/27/20) RADHA MIDDLETON MD Dec 02, 2020 12:03
[2020-12-02] MEDS ORDERED: OXYC1TAB23 PO (12:14)
[2020-12-02] MEDS ORDERED: SENN18TA PO (12:14)
[2020-12-02 14:00] VITALS: BP 126/71
[2020-12-02] MEDS ORDERED: **NOTE PATIENT COMMENT** MISC XX SCH (21:00)
== END 2020-12-02 16:03 | disposition home health service (06) | DRG 52 ==
LOC: M ED 13:01 → M ED INP 16:20 → ENRESERV 16:32 → M PCU 18:36 → M MSPAV 11-29 14:25
PROVIDERS: ADMIT Internal Medicine; ATTEND General Practice
DX: G92 Toxic encephalopathy (principal); N17.9 Acute kidney failure, unspecified; M62.82 Rhabdomyolysis; R74.01 Elevation of levels of liver transaminase levels; D72.829 Elevated white blood cell count, unspecified; E86.0 Dehydration; R60.0 Localized edema; F41.9 Anxiety disorder, unspecified; F17.200 Nicotine dependence, unspecified, uncomplicated; F12.188 Cannabis abuse with other cannabis-induced disorder; M60.9 Myositis, unspecified; F32.9 Major depressive disorder, single episode, unspecified; R53.83 Other fatigue; L03.811 Cellulitis of head [any part, except face]; Z88.2 Allergy status to sulfonamides; Z88.1 Allergy status to other antibiotic agents; Z88.8 Allergy status to other drugs, medicaments and biological substances; Z20.822 Contact with and (suspected) exposure to COVID-19; Z79.899 Other long term (current) drug therapy

== ENCOUNTER → 2020-12-09 | Outpatient (REF) | payer OTHER ==
[~2020-12-09] MED LIST changes: +CEPH500T PO; +DOXY-350 PO; +OXYC1TAB23 PO; +PERC5TAB12 PO; +SENN18TA PO
[2020-12-09 17:14] LABS: BASO # 0.1 10^3/uL (0.0-0.2); BASO % 0.9 % (0.0-1.0); EOS # 0.1 10^3/uL (0.0-0.5); EOS % 0.9 % (0.0-3.0); HEMATOCRIT 40.2 % (42.0-52.0); LYMPH # 1.7 10^3/uL (1.5-5.0); MEAN CORPUSCULAR HEMOGLOBIN 30.2 pg (27.0-33.0); MEAN CORPUSCULAR HGB CONC 32.3 g/dl (32.0-36.5); MEAN CORPUSCULAR VOLUME 93.5 fl (80.0-96.0); MONO # 0.7 10^3/uL (0.0-0.8); MONO % 8.2 % (2.0-8.0); NEUTROPHILS # 5.8 10^3/uL (1.5-8.5); NEUTROPHILS % 67.2 % (36.0-66.0); PLATELET COUNT, AUTOMATED 254 10^3/uL (150-450); WHITE BLOOD COUNT 8.7 10^3/uL (4.0-10.0)
[2020-12-09 17:49] LABS: ALBUMIN 3.7 GM/DL (3.2-5.2); ALT/SGPT 108 U/L (12-78); BILIRUBIN,TOTAL 0.8 MG/DL (0.2-1.0); BLOOD UREA NITROGEN 17 MG/DL (7-18); CALCIUM LEVEL 9.2 MG/DL (8.5-10.1); CARBON DIOXIDE LEVEL 32 MEQ/L (21-32); CHLORIDE LEVEL 105 MEQ/L (98-107); CREATININE FOR GFR 1.11 MG/DL (0.70-1.30); GLOMERULAR FILTRATION RATE > 60.0 (>60); GLUCOSE, FASTING 100 MG/DL (70-100); POTASSIUM SERUM 4.5 MEQ/L (3.5-5.1); SODIUM LEVEL 140 MEQ/L (136-145); TOTAL PROTEIN 6.5 GM/DL (6.4-8.2)
[2020-12-09 17:56] LABS: ERYTHROCYTE SEDIMENTATION RATE 5 mm/hr (0-15)
== END ==
LOC: M LAB REF 16:29
PROVIDERS: ATTEND Family Medicine Addiction Medicine
DX: N17.9 Acute kidney failure, unspecified (principal); L03.90 Cellulitis, unspecified

== ENCOUNTER → 2020-12-29 | Outpatient (CLI) | payer OTHER ==
[~2020-12-29] MED LIST changes: +GABA-283 PO; -GABA-845 PO
--- NOTE | 2020-12-29 14:42 | REP ---
INDICATION: ABN LABS COMPARISON: 11/27/2020 TECHNIQUE: Real time solis scale ultrasound examination using curved array transducer. FINDINGS: Liver is normal in contour, size, and echogenicity without focal hepatic lesions identified. Pancreas is incompletely evaluated due to interposed bowel gas. The gallbladder is normal and without gallstones, wall thickening, or pericholecystic fluid. No biliary ductal dilatation is appreciated and the common bile duct measures 2.3 mm diameter. Right kidney is normal in reniform shape without hydronephrosis and measures 12.8 x 5.1 x 3.6 cm. No ascites in the visualized right upper quadrant. IMPRESSION: Normal limited right upper quadrant ultrasound <Electronically signed by Jonas Aquino > 12/29/20 [id number]
== END ==
LOC: M RAD 09:11
PROVIDERS: ATTEND Family Medicine Addiction Medicine
DX: R94.5 Abnormal results of liver function studies (principal)

== ENCOUNTER 2021-01-13 11:45 | Outpatient (RCR) | payer OTHER | END 2021-01-16 | LOC: M PT 11:45 | PROVIDERS: ATTEND Orthopaedic Surgery | DX: M79.661 Pain in right lower leg (principal) ==

== ENCOUNTER 2021-02-13 10:08 | Outpatient (RCR) | payer OTHER | END 2021-02-15 | LOC: M PT 10:08 | PROVIDERS: ATTEND Orthopaedic Surgery | DX: M79.661 Pain in right lower leg (principal); S70.11XA Contusion of right thigh, initial encounter; W18.30XA Fall on same level, unspecified, initial encounter; Y92.009 Unspecified place in unspecified non-institutional (private) residence as the place of occurrence of the external cause ==

== ENCOUNTER → 2021-02-23 | Outpatient (CLI) | payer OTHER ==
--- NOTE | 2021-02-23 13:53 | REP ---
INDICATION: UNILAT SMALL KIDNEY. COMPARISON: None. TECHNIQUE: Real-time sonographic evaluation of the kidneys is performed. FINDINGS: Renal cortical echogenicity pattern of right kidney is normal and contours are smooth. The left kidney demonstrates lobulated margins. There is no evidence of hydronephrosis, cyst, mass, or calculus in either kidney. The right kidney measures 12.3 x 6.6 x 4.3 cm. Left renal dimensions are 6.8 x 2.7 x 3.1 cm. The urinary bladder is unremarkable. Prostate measures 3.9 x 3.1 x 2.9 cm for total volume of 18.3 cc. IMPRESSION: Small left kidney. No hydronephrosis. <Electronically signed by Jono Lewis > 02/23/21 [id number]
--- NOTE | 2021-02-24 08:51 | REP ---
INDICATION: UNILAT SMALL KIDNEY. COMPARISON: Comparison is made with prior CT study abdomen and pelvis July 28, 2018 and more recent renal sonography from February 23, 2021 confirming significant atrophy of the left kidney.. TECHNIQUE: 8.4 mCi of Technetium-99m MAG3 is injected and sequential posterior flow and excretory phase imaging are acquired. Renal cortical regions of interest are drawn and time activity curves are plotted for renal functional analysis. Pre and postvoid images including the kidneys and bladder were acquired. FINDINGS: Posterior flow study shows slightly delayed perfusion of a small left kidney. Normal perfusion of the right kidney. No intrarenal mass is evident on nephrogram phase images. Excretory phase images demonstrate bilateral collecting system uptake by the 3-4 minute image without evidence of obstructive uropathy. Pre and post void images are otherwise unremarkable. Differential renal function analysis is quite abnormal with only 13% of overall renal cortical counts coming from the left kidney and 87% emanating from the right kidney. Time to peak activity is 3 minutes on the right which is borderline in and 0.5 minutes on the left which I believe is artifactual. Time to half max activity is normal on the right at 6.9 minutes period time to half max activity on the left is recorded at 2 minutes but I believe this is also artifactual. The renal excretion curve on the left appears somewhat flat. IMPRESSION: Flat renal excretion curve and a small atrophic appearing left kidney. No evidence of obstructive uropathy. <Electronically signed by Marc Dodge > 02/24/21 1532
== END ==
LOC: M RAD 13:06
PROVIDERS: ATTEND Internal Medicine Nephrology
DX: N27.0 Small kidney, unilateral (principal)
CPT/HCPCS: 76775; 78707; A9562

== ENCOUNTER → 2021-02-23 | Outpatient (CLI) | payer OTHER ==
--- NOTE | 2021-02-25 04:47 | ECWPNPC ---
PATIENT NAME: QUIN LIMA : 1985 GENDER: MALE VISIT DATE: 02/23/2021 DISCHARGE DATE: 02/23/21 1032 VISIT LOCKED DATE TIME: PHYSICIAN: RAYMON DENG RESOURCE: RAYMON DENG REASON FOR APPOINTMENT 1. TESTICULAR PAIN HISTORY OF PRESENT ILLNESS GENERAL: HPI 35-YEAR-OLD MALE IN FOR CHRONIC PAIN FOLLOW-UP. HE RATES HIS PAIN CURRENTLY AT A 6 OUT OF 10 AND DESCRIBES IT ACHING AND CONTINUOUS. HE FEELS HIS MEDICATIONS ARE HELPFUL AND DENIES MED SIDE EFFECTS AT THIS TIME.. -. FALL RISK SCREENING: SCREENING FELL DOWN THE STAIRS IN NOVEMBER 25 2020, ADMITTED TO HOSPITAL POST FALL 11/27/2020-12/02/2020- OT & PT POST FALL, ALSO SEEING A SMELLER . PAIN SCREENING: PATIENT HAS A COMPLAINT OF ACUTE OR CHRONIC PAIN :YES LOCATION OF PAIN:LOW BACK INTENSITY OF PAIN (SCALE OF 1 TO 10):6 WHAT DOES YOUR PAIN FEEL LIKE:ACHING, CONTINOUS DURATION:CONTINOUS PAIN IS INCREASED BY:PROLONGED STANDING PAIN IS DECREASED BY:OTHERS MEDICAL MARIJUANA NURSING NOTE: -. PAIN CENTER INTAKE QUESTIONS: DO YOU HAVE A HISTORY OF MRSA? :NO DO YOU TAKE A BLOOD THINNERS? :NO DO YOU HAVE ANY BLEEDING DISORDERS? :NO ANY NEW NUMBNESS OR WEAKNESS IN YOUR LEGS OR ARMS? :NO ANY PACEMAKER,DEFIBRILLATOR, OR DORSAL COLUMN STIMULATOR? :NO DO YOU HAVE ANY RASHES OR OPEN SORES? :NO ARE YOU ALLERGIC TO IV DYE? :NO ARE YOU DIABETIC? :NO ANY NEW PROBLEMS WITH YOUR MEDICATIONS? :NO HAVE YOU RECEIVED A VACCINE IN THE PAST 30 DAYS? :NO DO YOU PLAN TO RECEIVE A VACCINE IN THE NEXT 21 DAYS? :NO DO YOU NEED ANY PRESCRIPTION? :NO DO YOU TAKE ANY IMMUNOSUPPRESSIVE MEDICATIONS? :NO DO YOU HAVE ANY KIDNEY OR LIVER DISEASE? :YES ACUTE KIDNEY INJURY IN 11/2020 STILL BEING TREATED BY SMELLER IS THERE A CHANCE YOU COULD BE ? :NO ARE YOU BREAST FEEDING? :NO CURRENT MEDICATIONS TAKING MULTIVITAMIN ADULT - TABLET ORALLY TAKING LEXAPRO 20 MG TABLET 1 TABLET ORALLY ONCE A DAY TAKING SEROQUEL 25 MG TABLET 1 TABLET AT BEDTIME ORALLY ONCE A DAY TAKING GABAPENTIN 400 MG CAPSULE 1 CAPSULE ORALLY THREE TIMES A DAY TAKING MAY HAVE MEDICAL MARIJUANNA ORALLY AND INHALE PRN TAKING SILDENAFIL CITRATE 100 MG TABLET 1 TABLET NEEDED ORALLY ONCE A DAY NOT-TAKING IBUPROFEN 800 MG TABLET 1 TABLET WITH FOOD OR MILK NEEDED ORALLY THREE TIMES A DAY MEDICATION LIST REVIEWED AND RECONCILED WITH THE PATIENT PAST MEDICAL HISTORY ACUTE PROSTATITIS LEFT SIDE 2 CYSTS TESTICAL HX HEART MURMUR A CHILD PER PAIN CLINIC PTS MISSING PORTION CARTILAGE IN SPINE ANXIETY/ DEPRESSION ADMITTED TO HOSPITAL 11/2020 ACUTE KIDNEY INJURY AND ALTERED MENTAL STATUS ALLERGIES SULFA (FOR ALLERGY USE ONLY): ANAPHYLAXIS - ALLERGY NEOSPORIN: ANAPHYLAXIS - ALLERGY SURGICAL HISTORY TOOTH EXTRACTION 07/2018 TOOTH BRIDGES IMPLANTED 11/2018 SOCIAL HISTORY GENERAL: TOBACCO USE ARE YOU A:CURRENT SMOKER ARE YOU INTERESTED IN QUITTING?NOT READY TO QUIT COUNSELED THE PATIENT ON SMOKING EFFECTS, EDUCATION [id number]/12/2020 HOW MANY CIGARETTES A DAY DO YOU SMOKE?6-10 PATIENT COUNSELED ON THE DANGERS OF TOBACCO USE AND URGED TO QUIT:02/23/2021 LATEX QUESTIONNAIRE LATEX ALLERGY : HAVE YOU EVER DEVELOPED ANY TYPE OF REACTION AFTER HANDLING LATEX PRODUCTS SUCH RUBBER GLOVES, CONDOMS, DIAPHRAGMS, BALLOONS, SOCKS, OR UNDERWEAR?NO LATEX ALLERGY : HAVE YOU EVER DEVELOPED ANY TYPE OF REACTION DURING OR AFTER DENTAL APPOINTMENT, VAGINAL/RECTAL EXAMINATION, SURGICAL PROCEDURE, OR ANY OTHER EXPOSURE?NO LATEX RISK : HAVE YOU EVER HAD ANY DIFFICULTY BREATHING OR HIVES AFTER EATING OR HANDLING ANY FRUITS, OR VEGETABLES; SUCH KIWI, BANANAS, STONE FRUITS, OR CHESTNUTSNO LATEX RISK : DO YOU HAVE A PREVIOUS PERSONAL HISTORY OF MORE THAN NINE SURGERIES, SPINA BIFIDA, OR REPEATED CATHERIZATIONS? NO LATEX RISK : ARE YOU FREQUENTLY EXPOSED TO LATEX PRODUCTS IN YOUR OCCUPATION?YES DATE ASKED : 02/23/2021 ALCOHOL USE: YES, A BEER ONCE A WEEK. ALCOHOL SCREENING DID YOU HAVE A DRINK CONTAINING ALCOHOL IN THE PAST YEAR?YES HOW OFTEN DID YOU HAVE SIX OR MORE DRINKS ON ONE OCCASION IN THE PAST YEAR?NEVER (0 POINTS) HOW MANY DRINKS DID YOU HAVE ON A TYPICAL DAY WHEN YOU WERE DRINKING IN THE PAST YEAR?3 OR 4 (1 POINT) HOW OFTEN DID YOU HAVE A DRINK CONTAINING ALCOHOL IN THE PAST YEAR?TWO TO FOUR TIMES A MONTH (2 POINTS) POINTS3 INTERPRETATIONNEGATIVE RECREATIONAL DRUG USE DRUG USE?YES PT SMOKEW MARYJUANA ON A DAILY BASIS AND THC OIL HOW OFTEN AND HOW MUCH? DAILY CAFFEINE CAFFEINE USE?NO SAMARITAN [id number] RASTAFARIAN LANGUAGE LANGUAGES SPOKEN:FINNISH EDUCATION LEVEL OF EDUCATION:HIGH SCHOOL LEARNING BARRIERS / SPECIAL NEEDS BARRIERS TO LEARNING?NO HEARING IMPAIRED?NO VISION IMPAIRED?YES COGNITIVELY IMPAIRED?NO :CORRECTIVE LENSES READINESS TO LEARN?YES LEARNING PREFERENCES?YES :DEMONSTRATION/VERBAL INSTRUCTION LEARNING CAPABILITIES PRESENT?YES EMOTIONAL BARRIERS?NO SPECIAL DEVICES?NO IT APPLICATION ADMINISTRATOR NEEDED?NO DOMESTIC VIOLENCE DO YOU FEEL SAFE IN YOUR ENVIRONMENT?YES OCCUPATION: [employer]. DIET: REGULAR. EXERCISE: DAILY. MARITAL STATUS: SINGLE. - PFS REFERRAL NEEDED?NO CLERGY REFERRAL NEEDED?NO PUBLIC HEALTH REFERRAL NEEDED?NO WAS THE PROVIDER NOTIFIED OF ANY PERTINENT INFO?NO HAS THE PATIENT BEEN EDUCATED REGARDING HIS/HER PLAN OF CARE?YES HAS THE PATIENT BEEN EDUCATED REGARDING PAIN, THE RISK FOR PAIN, THE IMPORTANCE OF EFFECTIVE PAIN MANAGEMENT, AND THE PAIN ASSESSMENT PROCESS?YES ADVANCE DIRECTIVE ADVANCE DIRECTIVE DISCUSSED WITH PATIENT:YES DECLINED HCP INFORMATION. HOSPITALIZATION/MAJOR DIAGNOSTIC PROCEDURE PNEUMONIA CHILD DEHYDRATION AND HEAD INJURY, ACUTE KIDNEY INJURY 11/27/2020- 12/02/2020 REVIEW OF SYSTEMS CONSTITUTIONAL: ANY RECENT FEVER NO . CHILLS NO . WEIGHT CHANGE OF UNKNOWN REASONS NO . GASTROENTEROLOGY: NEW UNEXPLAINABLE CHANGES IN BOWEL CONTROL NO . CONSTIPATION NO . GENITOURINARY: ANY NEW CHANGE IN BLADDER CONTROL? NO . NEUROLOGY: NEW ONSET DIZZINESS OR NEUROLOGICAL CHANGES NOT MENTIONED NO . NEW NUMBNESS OR PAIN PATTERNS NOT MENTIONED AND PERTINENT TO TODAY'S VISIT NO . CARDIOLOGY: NEW CHEST PRESSURE NO . PATIENT DENIES NO . RESPIRATORY: UNEXPLAINABLE COUGH NO . NEW SHORTNESS OF BREATH NO . VITAL SIGNS WT 155.2 LBS, HT 6', BMI 21.05 INDEX, BP 129/75 MM HG, HR 60 /MIN, RR 18 /MIN, TEMP 98.1 F, OXYGEN SAT % 100%, SAFE IN ENV? (Y/N) YES, NA INITIALS AW 1004, REVIEWED BY: Alexandr MCKINNEY RN. EXAMINATION GENERAL EXAMINATION: GENERALNO ACUTE DISTRESS, WELL NOURISHED AND HYDRATED. PSYCHAPPROPRIATE MOOD AND AFFECT . LUNGS:CLEAR TO AUSCULTATION BILATERALLY, NO WHEEZES, RHONCHI, RALES. HEART:NO MURMURS, REGULAR RATE AND RHYTHM. ASSESSMENTS TESTICLE PAIN - N50.819 (PRIMARY), RISK: (NULL) TREATMENT TESTICLE PAIN REFILL GABAPENTIN CAPSULE, 400 MG, 1 CAPSULE, ORALLY, THREE TIMES A DAY, 30 DAY(S), 90 CAPSULE(S), REFILLS 2 NOTES: 35-YEAR-OLD MALE IN FOR CHRONIC PAIN FOLLOW-UP. GIVEN RENAL ISSUES IBUPROFEN WILL NOT BE REFILLED AT THIS TIME. PATIENT WILL CONTINUE WITH GABAPENTIN WITH FOLLOW-UP IN 3 MONTHS. PATIENT HAS EXPRESSED UNDERSTANDING OF AND WAS IN AGREEMENT WITH TREATMENT PLAN. GIVEN TIME TO ASK QUESTIONS AND EXPRESS CONCERNS. PROCEDURE CODES FA211 ESTABILISHED PATIENT [facility] CHARGE DISPOSITION & COMMUNICATION FOLLOW UP 3 MONTHS (REASON: TESTICULAR PAIN ) ELECTRONICALLY SIGNED BY TIFFANIE FAIRCHILD ON 02/24/2021 AT 12:24 PM EDT DISCLAIMER : THIS IS A VISIT SUMMARY EXTRACTED FROM THE [employer] CHART. IT IS NOT A COPY OF THE [employer] PROGRESS NOTE. CHELLED
== END ==
LOC: M PAIN 10:00
PROVIDERS: ATTEND Family Medicine
DX: N50.819 Testicular pain, unspecified (principal); G89.29 Other chronic pain; F17.210 Nicotine dependence, cigarettes, uncomplicated; Z86.59 Personal history of other mental and behavioral disorders; Z88.1 Allergy status to other antibiotic agents; Z88.2 Allergy status to sulfonamides; Z79.899 Other long term (current) drug therapy

== ENCOUNTER → 2021-03-23 | Outpatient (REF) | payer OTHER ==
[2021-03-23 18:31] LABS: APPEARANCE, URINE CLEAR (CLEAR); BACTERIA, URINE AUTO NEGATIVE (NEGATIVE); BILIRUBIN, URINE AUTO NEGATIVE (NEGATIVE); BLOOD, URINE BLOOD NEGATIVE (NEGATIVE); COLOR, URINE YELLOW (YELLOW); GLUCOSE, URINE (UA) AUTO NEGATIVE (NEGATIVE); KETONE, URINE AUTO NEGATIVE (NEGATIVE); LEUKOCYTE ESTERASE, URINE AUTO NEGATIVE (NEGATIVE); MUCUS, URINE SMALL (NEGATIVE); NITRITE, URINE AUTO NEGATIVE (NEGATIVE); PROTEIN, URINE AUTO NEGATIVE (NEGATIVE); RBC, URINE AUTO 1 /HPF (0-3); SPECIFIC GRAVITY URINE AUTO 1.018 (1.002-1.035); SQUAMOUS EPITHELIAL CELL UR AU 0 /HPF (0-6); WBC, URINE AUTO 1 /HPF (0-3)
== END ==
LOC: M SMT 17:14
PROVIDERS: ATTEND Nurse Practitioner Family
DX: R10.9 Unspecified abdominal pain (principal)

== ENCOUNTER 2021-07-25 09:38 | Emergency (ER) | payer OTHER ==
[~2021-07-25] VITALS: Ht 188 cm; Wt 71.5 kg
[~2021-07-25 09:38] MED LIST changes: +QUET1TAB17 PO; -QUET25TA3 PO
[2021-07-25] MEDS ORDERED: NS 1,000 ML IV ONE (17:10)
--- NOTE | 2021-07-25 17:23 | REP ---
INDICATION: chest pain. COMPARISON: PA and lateral chest, 07/23/2016. TECHNIQUE: Upright AP chest image was obtained. FINDINGS: The lungs are clear. The heart borders mediastinum and pulmonary vascular pattern normal. IMPRESSION: No evidence of acute cardiopulmonary pathology <Electronically signed by Forrest Dukes > 07/25/21 1711
[2021-07-25 17:39] LABS: BASO # 0.1 10^3/uL (0.0-0.2); BASO % 0.8 % (0.0-1.0); EOS % 0.3 % (0.0-3.0); HEMATOCRIT 46.9 % (42.0-52.0); LYMPH # 2.3 10^3/uL (1.5-5.0); LYMPH % 30.3 % (24.0-44.0); MEAN CORPUSCULAR HEMOGLOBIN 30.7 pg (27.0-33.0); MEAN CORPUSCULAR HGB CONC 34.1 g/dl (32.0-36.5); MEAN CORPUSCULAR VOLUME 89.8 fl (80.0-96.0); MONO # 0.6 10^3/uL (0.0-0.8); MONO % 7.7 % (2.0-8.0); NEUTROPHILS # 4.6 10^3/uL (1.5-8.5); NEUTROPHILS % 60.5 % (36.0-66.0); PLATELET COUNT, AUTOMATED 167 10^3/uL (150-450); RED BLOOD COUNT 5.22 10^6/uL (4.30-6.10); WHITE BLOOD COUNT 7.5 10^3/uL (4.0-10.0)
--- NOTE | 2021-07-25 17:43 | REPVR ---
PROCEDURE INFORMATION: Exam: CT Head Without Contrast Exam date and time: 07/25/2021 5:26 PM Age: 35 years old Clinical indication: Syncope and collapse; Additional info: Syncope, vomiting TECHNIQUE: Imaging protocol: Computed tomography of the head without contrast. Axial and coronal reformatted images were created and reviewed. Radiation optimization: All CT scans at this facility use at least one of these dose optimization techniques: automated exposure control; mA and/or kV adjustment per patient size (includes targeted exams where dose is matched to clinical indication); or iterative reconstruction. COMPARISON: CT Head without contrast 11/27/2020 1:39 PM FINDINGS: Brain: No CT evidence of acute intracranial hemorrhage or acute territorial infarction. No significant mass effect or midline shift. Basal cisterns patent. Cerebral ventricles: Normal in size and configuration. Paranasal sinuses: Unremarkable. No fluid levels. Mastoid air cells: Grossly unremarkable. Bones/joints: No acute osseous abnormality. Soft tissues: Grossly unremarkable. IMPRESSION: No CT evidence of acute intracranial pathology. Electronically signed by: Shaggy Monahan On 07/25/2021 17:43:17 PM
[2021-07-25 17:45] LABS: APPEARANCE, URINE CLEAR (CLEAR); BACTERIA, URINE AUTO NEGATIVE (NEGATIVE); BILIRUBIN, URINE AUTO NEGATIVE (NEGATIVE); BLOOD, URINE BLOOD NEGATIVE (NEGATIVE); COLOR, URINE YELLOW (YELLOW); GLUCOSE, URINE (UA) AUTO NEGATIVE (NEGATIVE); KETONE, URINE AUTO TRACE mg/dL (NEGATIVE); LEUKOCYTE ESTERASE, URINE AUTO NEGATIVE (NEGATIVE); MUCUS, URINE SMALL (NEGATIVE); NITRITE, URINE AUTO NEGATIVE (NEGATIVE); PROTEIN, URINE AUTO 1+ mg/dL (NEGATIVE); RBC, URINE AUTO 2 /HPF (0-3); SPECIFIC GRAVITY URINE AUTO 1.031 (1.002-1.035); SQUAMOUS EPITHELIAL CELL UR AU 0 /HPF (0-6); WBC, URINE AUTO 3 /HPF (0-3)
--- OUTSIDE RECORDS SUMMARY | 2021-07-25 17:47 | CCD ---
Author Organization Unknown Address [address] [place] [address] Phone [phone] Care Team Providers Care Credit Operations Specialist Name Role Phone Joao Wright Unavailable Unavailable Allergies Code Code System Name Reaction Severity Status Onset Neosporin ([id number]) Anaphylaxis Severe Active 11/19/2012 Sulfa (Sulfonamide Antibiotics) Anaphylaxis Severe Active 11/20/19 13 Medications Name Status Start Date Stop Date albuterol sulfate HFA 90 mcg/actuation a erosol inhaler INHALE TWO PUFFS BY MOUTH EVERY 2 HOURS NEEDED Active Not available cephalexin 500 mg capsule PO QID Completed 03/08/2021 doxycycline monohydrate 100 mg capsule BID Completed 04/13/2021 gabapentin 300 mg capsule TAKE 1 CAPSULE BY MOUTH THREE TIMES A DAY FOR PAIN Completed 12/06/2020 gabapentin 400 mg capsule Active Not av ailable ibuprofen 800 mg tablet TAKE ONE TABLET BY MOUTH THREE TIMES A DAY NEEDED WITH FOOD OR MILK Completed 03/08/2021 Lexapro 10 mg tablet Take 1 tablet every day by oral route as directed for 30 days. Active Not available omeprazole 20 mg capsule,delayed release TAKE ONE CAPSULE BY MOUTH EVERY DAY IN THE MORNING ON AN EMPTY STOMACH Completed 12/06/2020 oxycodone-acetaminophen 5 mg-325 mg tabl et TAKE ONE TABLET BY MOUTH FOUR TIMES A DAY NEEDED FOR PAIN MAXIMUM DAILY DOSE 4 TABLETS Completed 03/08/2021 quetiapine 25 mg tablet TAKE ONE TABLET BY MOUTH AT BEDTIME Active Not available senna 8.6 mg tablet TAKE TWO TABLETS BY MOUTH TWICE A DAY NEEDED FOR BOWEL CARE Completed 04/13/2021 sildenafil 100 mg tablet TAKE ONE TABLET BY MOUTH EVERY DAY NEEDED Completed 12/06/2020 Problems Name Status Onset Date Source Dental Caries on Smooth Surface Penetrating into Pulp Active 05/10/2015 History Anxiety Active 03/05/2019 History Chronic Pain Active 03/05/2019 History Asthma Active 03/05/[address] Concept Unknown 03/05/2019 History Finding of General Energy Active 03/05/2019 Histor y Clinical Finding Active 03/05/[address] Concept Active 03/05/2019 History Bipolar Disorder Active 08/05/2019 History Mood Disorder Active 08/05/2019 History Gastroesophageal Reflux Disease Active 04/14/2020 History Abnormal Weight Loss Active 04/14/2020 History Body Measurement Finding Unknown 04/14/2020 History Finding of Esophagus Active 04/14/2020 History Patient Asked to Attend Active 05/19/2020 History Tobacco User Active 12/08/2020 Cellulitis Active 12/08/2020 Rhabdomyolysis Active 12/08/2020 Pain in Right Arm Active 12/08/2020 Pain in Right Lower Limb Active 12/08/2020 Liver Function Tests Abnormal Active 12/08/2020 Acute Nontraumatic Kidney Injury Active 12/08/2020 Left Flank Pain Active 04/13/2021 Procedures Date Name Performed by 12/16/2020 , Liver [facility] Radiology [address] [place] [address] (Work Place) 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: [address] [facility] Blood venous ABNORMAL Hepatitis B Surface Anti body Ql reactive non-reactive Final [facility]: [address] [facility] Blood venous Normal Hepatitis B Surface Antig en non-reactive non-reactive Final [facility] gh: [address] [facility] Blood venous Normal Hepatitis B Core Ab Total non-reactive non-reactive Final [facility]: [address] [facility] Blood venous Normal Hepatitis C Antibody non -reactive non-reactive Final [facility]: [address] [facility] Blood venous Normal Index 0.01 <1.00 Final est [facility]: [address] [facility] 02/27/2021 Hepatic Function Panel, Serum Blood venous Normal Protein, Total 7.4 g/dL 6.1-8.1 g/dL Final [facility] [address] [facility] Blood venous Normal Albumin 5.0 g/dL 3.6-5.1 g/dL Final [facility]: [address] [facility] Blood venous Normal Globulin 2.4 g/dL (calc) 1.9- 3.7 g/dL (calc) Final [facility]: [address] [facility] Blood venous Normal Albumin/globulin Ratio 2 .1 (calc) 1.0-2.5 (calc) Final [facility]: [address] [facility] Blood venous Normal Bilirubin, Total 0.9 mg/dL 0. 2-1.2 mg/dL Final [facility]: [address] [facility] Blood venous Normal Bilirubin, Direct 0.2 mg/dL < or = 0.2 mg/dL Final [facility]: [address] [facility] Blood venous Normal Bilirubin, Indirect 0.7 mg/dL (calc) 0.2-1.2 mg/dL (calc) [facility] [address] [facility] Blood venous Normal Alkaline Phosphatase 64 U/L 3 6-130 U/L Final [facility]: [address] [facility] Blood venous Normal Ast 16 U/L 10-40 U/L Final [facility]: [address] [facility] Blood venous Normal Alt 17 U/L 9-46 U/L Final [facility]: [address] [facility] 12/09/2020 CMP, Serum or Plasma Blood venous Normal Glu cose, Fasting 100 mg/dL 70-100 mg/dL [facility] nter: [address] [facility] Blood venous Normal Blood Urea Nitrogen 17 mg/dL 7-18 mg/dL [facility]: [address] [facility] Blood venous Normal Creatinine for GFR 1.11 mg/dL 0.70-1.30 mg/dL [facility]: [address] [facility] Blood venous Normal Glomerular Filtration Rate > 60.0 >60 [facility]: [address] [facility] Blood venous Normal Sodium Level 140 mEq/L 136-14 5 mEq/L [facility]: 0 [facility] Blood venous Normal Potassium Serum 4.5 mEq/L 3.5 -5.1 mEq/L [facility]: [address] [facility] Blood venous Normal Chloride Level 105 mEq/L 98-1 07 mEq/L [facility]: [address] [facility] Blood venous Normal Carbon Dioxide Level 32 mEq/L 21-32 mEq/L [facility]: [address] [facility] Blood venous Low Anion Gap 3 mEq/L 8-16 mEq/L [facility]: [address] [facility] Blood venous Normal Calcium Level 9.2 mg/dL 8.5-1 0.1 mg/dL [facility]: [address] [facility] Blood venous High AST/SGOT 50 U/L 7-37 U/L Jamia l [facility]: [address] [facility] Blood venous High ALT/SGPT 108 U/L 12-78 U/L Fi nal [facility]: [address] [facility] Blood venous Normal Alkaline Phosphatase 67 U/L 4 5-117 U/L [facility]: [address] [facility] Blood venous Normal Bilirubin,total 0.8 mg/dL 0.2 -1.0 mg/dL [facility]: [address] [facility] Blood venous Normal Total Protein 6.5 gm/dL 6.4-8 .2 gm/dL [facility]: 0 [facility] Blood venous Normal Albumin 3.7 gm/dL 3.2-5.2 gm/ dL [facility]: [address] [facility] Blood venous Normal Albumin/globulin Ratio 1.3 [facility]: [address] [facility] 12/09/2020 CBC W/ Auto Diff Blood venous Normal White Blood C ount 8.7 10 4.0-10.0 10 [facility]: 83 0 [facility] Blood venous Normal Red Blood Count 4.30 10 4.30- 6.10 10 [facility]: [address] [facility] Blood venous Low Hemoglobin 13.0 g/dL 13.5-17. 5 g/dL [facility]: [address] [facility] Blood venous Low Hematocrit 40.2 % 42.0-52.0 % [facility]: [address] [place] [address] Blood venous Normal Mean Corpuscular Volume 93.5 fL 80.0-96.0 fL [facility]: [address] [place] [address] Blood venous Normal Mean Corpuscular Hemoglob in 30.2 pg 27.0-33.0 pg [facility]: [address] [place] [address] Blood venous Normal Mean Corpuscular HGB Conc 32.3 g/dL 32.0-36.5 g/dL [facility]: [address] [place] [address] Blood venous Normal Red Cell Distribution Wid th 12.9 % 11.5-14.5 % [facility]: [address] [place] [address] Blood venous Normal Platelet Count, Automated 254 10 150-450 10 [facility]: [address] [place] [address] Blood venous High Neutrophils % 67.2 % 36.0-66. 0 % [facility]: [address] [place] [address] Blood venous Low Lymph % 20.0 % 24.0-44.0 % [facility]: [address] [place] [address] Blood venous High [place] % 8.2 % 2.0-8.0 % [facility]: [address] [place] [address] Blood venous Normal Eos % 0.9 % 0.0-3.0 % [facility]: [address] [place] [address] Blood venous Normal Baso % 0.9 % 0.0-1.0 % [facility]: [address] [place] [address] Blood venous Normal Immature Granulocyte % 2.8 % 0-3.0 % [facility]: [address] [place] [address] Blood venous Normal Nucleated Red Blood Cell % 0. 0 % 0-0 % [facility]: [address] [place] [address] Blood venous Normal Neutrophils # 5.8 10 1.5-8.5 10 [facility]: [address] [place] [address] Blood venous Normal Lymph # 1.7 10 1.5-5.0 10 [facility]: [address] [facility] Blood venous Normal [place] # 0.7 10 0.0-0.8 10 [facility]: [address] [facility] Blood venous Normal Eos # 0.1 10 0.0-0.5 10 [facility]: [address] [facility] Blood venous Normal Baso # 0.1 10 0.0-0.2 10 [facility]: [address] [facility] 12/09/2020 ESR (Erythrocyte Sedimentation Rate), Blood Blood venous Normal Erythrocyte Sedimentation Rate 5 mm/HR 0-15 mm/HR [facility]: [address] [facility] 09/15/2020 CMP, Serum or Plasma High Glucose, Fastin g 112 mg/dL 70-100 mg/dL [facility]: [address] [facility] High Blood Urea Nitrogen 19 mg/dL 7-18 mg /dL [facility]: 0 [facility] Normal Creatinine for GFR 1.18 mg/dL 0.70-1 .30 mg/dL [facility]: [address] [facility] Normal Glomerular Filtration Rate > 60.0 >6 0 [facility]: [address] [facility] Normal Sodium Level 142 mEq/L 136-145 mEq/L [facility]: [address] [facility] Normal Potassium Serum 4.1 mEq/L 3.5-5.1 mE q/L [facility]: [address] [facility] Normal Chloride Level 104 mEq/L 98-107 mEq/ L [facility]: [address] [facility] Normal Carbon Dioxide Level 28 mEq/L 21-32 mEq/L [facility]: [address] [facility] Normal Anion Gap 10 mEq/L 8-16 mEq/L [facility]: 0 [facility] Normal Calcium Level 9.9 mg/dL 8.5-10.1 mg/ dL [facility]: [address] [facility] Normal AST/SGOT 14 U/L 7-37 U/L [facility]: [address] [facility] Normal ALT/SGPT 26 U/L 12-78 U/L [facility]: [address] [facility] Normal Alkaline Phosphatase 72 U/L 45-117 U /L [facility]: [address] [facility] Normal Bilirubin,total 0.9 mg/dL 0.2-1.0 mg /dL [facility]: [address] [facility] Normal Total Protein 7.2 gm/dL 6.4-8.2 gm/d L [facility]: [address] [facility] Normal Albumin 4.5 gm/dL 3.2-5.2 gm/dL Jamia l [facility]: [address] [facility] Normal Albumin/globulin Ratio 1.7 [facility]: [address] [facility] 09/15/2020 TSH, Serum or Plasma Normal Thyroid Stimulating Hormone 1.540 uIU/mL 0.358-3.740 uIU/mL [facility] nter: [address] [facility] 09/15/2020 HbA1C (Hemoglobin a1C), Blood Normal Hemogl obin a1C 4.9 % [facility]: 0 [facility] Normal Estimated Average Glucose 94 mg/dL 6 0-110 mg/dL [facility]: [address] [facility] Past Encounters 05/15/2021 Mood Disorder Aman Tovar MD: [address] [place] [phone], Ph. 04/13/2021 Left Flank Pain Joao Wright MD: [address] [place] [phone], Ph. 03/08/2021 Liver Function Tests Abnormal Joao Wright MD: [address] [place] [address], Ph. 02/27/2021 Joao Wright MD: [address] [place] [phone], Ph. 01/12/2021 Pain in Right Lower Limb; Pain in Right Arm; Acute Nontraumatic Kidney Injury; Liver Function Tests Abnormal; Tobacco User Joao Wright MD: [address] [place] [phone], Ph. 12/09/2020 Joao Wright MD: [address] [place] [phone], Ph. 12/08/2020 Tobacco User; Acute Nontraumatic Kidney Injury; Rhabdomyolysis; Pain in Right Lower Limb; Pain in Right Arm; Liver Function Tests Abnormal; Cellulitis Joao Wright MD: [address] [place] [phone], Ph. 11/17/2020 Bipolar Disorder; Chronic Pain; Adult Health Examination Joao Wright MD: [address] [place] [phone], Ph. 11/03/2020 Posttraumatic Stress Disorder; Panic Disorder; Bipolar Disorder Vangie Mccord, [employer]: [address] [place] [phone], Ph. 10/13/2020 Posttraumatic Stress Disorder; Panic Disorder; Generalized Anxiety Disorder; Bipolar II Disorder, Most Recent Episode Major Depressive Vangie Mccord, [employer]: [address] [place] [phone], Ph. 09/22/2020 Posttraumatic Stress Disorder; Panic Disorder; Generalized Anxiety Disorder; Bipolar II Disorder, Most Recent Episode Major Depressive Vangie Mccord, [employer]: [address] [place] [phone], Ph. 09/15/2020 Joao Wright MD: [address] [place] [phone], Ph. 09/08/2020 Bipolar Disorder; Posttraumatic Stress Disorder Vangie Mccord, [employer]: [address] [place] [phone], Ph. 08/25/2020 Posttraumatic Stress Disorder; Bipolar Disorder; Generalized Anxiety Disorder Vangie Mccord, [employer]: [address] [place] [address], Ph. 06/23/2020 Posttraumatic Stress Disorder; Panic Disorder; Bipolar Disorder; Generalized Anxiety Disorder Vangie Mccord [employer]: [address] [place] [phone], Ph. Social History Tobacco Smoking Status Former Smoker Vaccine List Notes: Pt declines covid vaccine. Plan of Care Reminders Provider Appointments None recorded. Lab None recorded. Referral None recorded. Procedures None recorded. Surgeries None recorded. Imaging None recorded. Vitals 05/15/2021 02:00PM TELEPSYCH 60 Height Weight BMI 72 in 153 lbs 3.2 oz 20.8 kg/m2 04/13/2021 11:00AM ESTABLISHED [id number] Height Weight BMI Blood Pressure 72 in 146 lbs 19.8 kg/m2 114/79 mm[Hg] 02/27/2021 08:10AM NURSE LAB COLLECTION Height 72 in 01/12/2021 03:20PM ESTABLISHED [id number] Height Weight BMI Blood Pressure 72 in 160 lbs 2 oz 21.7 kg/m2 116/73 mm[Hg] 12/09/2020 11:10AM NURSE LAB COLLECTION Height 72 in 12/08/2020 03:20PM TCM Height Weight BMI Blood Pressure 72 in 161 lbs 16 oz 22 kg/m2 123/81 mm[Hg] 11/17/2020 09:20AM ANNUAL EXAM Height Weight BMI Blood Pressure 72 in 159 lbs 8 oz 21.6 kg/m2 134/74 mm[Hg] 05/19/2020 Height Weight BMI Blood Pressure 72 in 151 lbs 20.55 kg/m2 113/72 mm[Hg] 04/14/2020 Height Weight BMI Blood Pressure 72 in 149 lbs 6.4 oz 20.34 kg/m2 125/73 mm[Hg ] 10/15/2019 Height Weight BMI 72 in 162 lbs 2.08 oz 22.07 kg/m2 08/05/2019 Height Weight BMI Blood Pressure 72 in 158 lbs 21.51 kg/m2 121/78 mm[Hg] 04/02/2019 Height Weight BMI Blood Pressure 72 in 150 lbs 4 oz 20.45 kg/m2 116/77 mm[Hg] 03/05/2019 Height Weight BMI Blood Pressure 72 in 151 lbs 3.2 oz 20.58 kg/m2 100/64 mm[Hg ]
--- OUTSIDE RECORDS SUMMARY | 2021-07-25 17:47 | CCD ---
Author Organization Unknown Address [address] [place] [address] Phone [phone] Care Team Providers Care Manager Lpn Name Role Phone WrightJoao Unavailable Unavailable Allergies Code Code System Name Reaction Severity Status Onset Neosporin ([id number]) Anaphylaxis Severe Ac tive 11/19/2012 Sulfa (Sulfonamide Antibiotics) Anaphylaxis Severe Active 11/19/2012 Medications Name Status Start Date Stop Date albuterol sulfate HFA 90 mcg/actuation a erosol inhaler INHALE TWO PUFFS BY MOUTH EVERY 2 HOURS NEEDED Active Not available cephalexin 500 mg capsule PO QID Completed 03/08/2021 doxycycline monohydrate 100 mg capsule BID Completed 04/13/2021 escitalopram 10 mg tablet TAKE ONE TABLET BY MOUTH EVERY DAY DIRECTED Active Not available gabapentin 300 mg capsule TAKE 1 CAPSULE BY MOUTH THREE TIMES A DAY FOR PAIN Completed 12/06/2020 gabapentin 400 mg capsule TAKE ONE CAPSULE BY MOUTH THREE TIMES A DAY Active Not available ibuprofen 800 mg tablet TAKE ONE TABLET BY MOUTH THREE TIMES A DAY NEEDED WITH FOOD OR MILK Completed 03/08/2021 Lexapro 20 mg tablet Take 1 tablet every day by oral route in the morning for 30 days. 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 Lab Results Date Name Specimen Result Interpretation Description Value Range Status Address 02/27/2021 Hepatitis (A+B+C) Panel, Serum Blood venous Normal Hepatitis a Ab, Total non-reactive non-reactive Final [facility]: [address] [facility] Blood venous ABNORMAL Hepatitis B Surface Anti body Ql reactive non-reactive Final [facility]: [address] [facility] Blood venous Normal Hepatitis B Surface Antig en non-reactive non-reactive Final [facility] gh: [address] [facility] Blood venous Normal Hepatitis B Core Ab Total non-reactive non-reactive Final [facility]: [address] [facility] Blood venous Normal Hepatitis C Antibody non -reactive non-reactive Final [facility]: [address] [facility] Blood venous Normal Index 0.01 <1.00 Final [facility]: [address] [facility] 02/27/2021 Hepatic Function Panel, Serum Blood venous Normal Protein, Total 7.4 g/dL 6.1-8.1 g/dL Final [facility]: [address] [facility] Blood venous Normal Albumin 5.0 g/dL 3.6-5.1 g/dL Final [facility]: [address] [facility] Blood venous Normal Globulin 2.4 g/dL (calc) 1.9- 3.7 g/dL (calc) Final [facility]: [address] [facility] Blood venous Normal Albumin/globulin Ratio 2 .1 (calc) 1.0-2.5 (calc) Final [facility]: [address] [facility] Blood venous Normal Bilirubin, Total 0.9 mg/dL 0. 2-1.2 mg/dL Final [facility]: [address] [facility] Blood venous Normal Bilirubin, Direct 0.2 mg/dL < or = 0.2 mg/dL Final [facility]: [address] [facility] Blood venous Normal Bilirubin, Indirect 0.7 mg/dL (calc) 0.2-1.2 mg/dL (calc) Final [facility]: [address] [facility] Blood venous Normal Alkaline Phosphatase 64 U/L 3 6-130 U/L Final [facility]: [address] [facility] Blood venous Normal Ast 16 U/L 10-40 U/L Final [facility]: [address] [facility] Blood venous Normal Alt 17 U/L 9-46 U/L Final [facility]: [address] [facility] 12/09/2020 CMP, Serum or Plasma Blood venous Normal Glu cose, Fasting 100 mg/dL 70-100 mg/dL [facility] nter: [address] [facility] Blood venous Normal Blood Urea Nitrogen 17 mg/dL 7-18 mg/dL Final [facility]: [address] [facility] Blood venous Normal Creatinine for GFR 1.11 mg/dL 0.70-1.30 mg/dL [facility]: [address] [facility] Blood venous Normal Glomerular Filtration Rate > 60.0 >60 [facility]: [address] [facility] Blood venous Normal Sodium Level 140 mEq/L 136-14 5 mEq/L [facility]: [address] [facility] Blood venous Normal Potassium Serum 4.5 mEq/L 3.5 -5.1 mEq/L [facility]: [address] [facility] Blood venous Normal Chloride Level 105 mEq/L 98-1 07 mEq/L [facility]: [address] [facility] Blood venous Normal Carbon Dioxide Level 32 mEq/L 21-32 mEq/L [facility]: [address] [facility] Blood venous Low Anion Gap 3 mEq/L 8-16 mEq/L [facility]: [address] [facility] Blood venous Normal Calcium Level 9.2 mg/dL 8.5-1 0.1 mg/dL [facility]: [address] [facility] Blood venous High AST/SGOT 50 U/L 7-37 U/L Jamia l [facility]: [address] [facility] Blood venous High ALT/SGPT 108 U/L 12-78 U/L Fi nal [facility]: [address] [facility] Blood venous Normal Alkaline Phosphatase 67 U/L 4 5-117 U/L [facility]: [address] [facility] Blood venous Normal Bilirubin,total 0.8 mg/dL 0.2 -1.0 mg/dL [facility]: [address] [facility] Blood venous Normal Total Protein 6.5 gm/dL 6.4-8 .2 gm/dL [facility]: [address] [facility] Blood venous Normal Albumin 3.7 gm/dL 3.2-5.2 gm/ dL [facility]: [address] [facility] Blood venous Normal Albumin/globulin Ratio 1.3 [facility]: [address] [facility] 12/09/2020 CBC W/ Auto Diff Blood venous Normal White Blood C ount 8.7 10 4.0-10.0 10 [facility]: 83 0 [facility] Blood venous Normal Red Blood Count 4.30 10 4.30- 6.10 10 [facility]: [address] [facility] Blood venous Low Hemoglobin 13.0 g/dL 13.5-17. 5 g/dL [facility]: [address] [place] [address] Blood venous Low Hematocrit 40.2 % 42.0-52.0 % [facility]: [address] [place] [address] Blood venous Normal Mean Corpuscular Volume 93.5 fL 80.0-96.0 fL [facility]: [address] [place] [address] Blood venous Normal Mean Corpuscular Hemoglob in 30.2 pg 27.0-33.0 pg [facility]: [address] [place] [address] Blood venous Normal Mean Corpuscular HGB Conc 32.3 g/dL 32.0-36.5 g/dL [facility]: [address] [place] [address] Blood venous Normal Red Cell Distribution Wid th 12.9 % 11.5-14.5 % [facility]: [address] [place] [address] Blood venous Normal Platelet Count, Automated 254 10 150-450 10 [facility]: [address] [place] [address] Blood venous High Neutrophils % 67.2 % 36.0-66. 0 % [facility]: [address] [place] [address] Blood venous Low Lymph % 20.0 % 24.0-44.0 % [facility]: [address] [place] [address] Blood venous High [place] % 8.2 % 2.0-8.0 % [facility]: [address] [place] [address] Blood venous Normal Eos % 0.9 % 0.0-3.0 % [facility]: [address] [place] [address] Blood venous Normal Baso % 0.9 % 0.0-1.0 % [facility]: [address] [place] [address] Blood venous Normal Immature Granulocyte % 2.8 % 0-3.0 % [facility]: [address] [place] [address] Blood venous Normal Nucleated Red Blood Cell % 0. 0 % 0-0 % [facility]: [address] [place] [address] Blood venous Normal Neutrophils # 5.8 10 1.5-8.5 10 [facility]: [address] [place] [address] Blood venous Normal Lymph # 1.7 10 1.5-5.0 10 [facility]: [address] [facility] Blood venous Normal [place] # 0.7 10 0.0-0.8 10 [facility]: [address] [facility] Blood venous Normal Eos # 0.1 10 0.0-0.5 10 [facility]: [address] [place] [address] Blood venous Normal Baso # 0.1 10 0.0-0.2 10 [facility]: [address] [facility] 12/09/2020 ESR (Erythrocyte Sedimentation Rate), Blood Blood venous Normal Erythrocyte Sedimentation Rate 5 mm/HR 0-15 mm/HR [facility]: [address] [place] [address] 09/15/2020 CMP, Serum or Plasma High Glucose, Fastin g 112 mg/dL 70-100 mg/dL [facility]: 83 0 [facility] High Blood Urea Nitrogen 19 mg/dL 7-18 mg /dL [facility]: [address] [place] [address] Normal Creatinine for GFR 1.18 mg/dL 0.70-1 .30 mg/dL [facility]: [address] [place] [address] Normal Glomerular Filtration Rate > 60.0 >6 0 [facility]: 0 [facility] Normal Sodium Level 142 mEq/L 136-145 mEq/L [facility]: 0 [facility] Normal Potassium Serum 4.1 mEq/L 3.5-5.1 mE q/L [facility]: 0 [facility] Normal Chloride Level 104 mEq/L 98-107 mEq/ L [facility]: 0 [facility] Normal Carbon Dioxide Level 28 mEq/L 21-32 mEq/L [facility]: 0 [facility] Normal Anion Gap 10 mEq/L 8-16 mEq/L [facility]: 0 [facility] Normal Calcium Level 9.9 mg/dL 8.5-10.1 mg/ dL [facility]: [address] [facility] Normal AST/SGOT 14 U/L 7-37 U/L [facility]: [address] [facility] Normal ALT/SGPT 26 U/L 12-78 U/L [facility]: [address] [facility] Normal Alkaline Phosphatase 72 U/L 45-117 U /L [facility]: [address] [facility] Normal Bilirubin,total 0.9 mg/dL 0.2-1.0 mg /dL [facility]: [address] [facility] Normal Total Protein 7.2 gm/dL 6.4-8.2 gm/d L [facility]: 0 [facility] Normal Albumin 4.5 gm/dL 3.2-5.2 gm/dL Jamia l [facility]: [address] [facility] Normal Albumin/globulin Ratio 1.7 [facility]: 0 [facility] 09/15/2020 TSH, Serum or Plasma Normal Thyroid Stimulating Hormone 1.540 uIU/mL 0.358-3.740 uIU/mL [facility] nter: 0 [facility] 09/15/2020 HbA1C (Hemoglobin a1C), Blood Normal Hemogl obin a1C 4.9 % [facility]: 0 [facility] Normal Estimated Average Glucose 94 mg/dL 6 0-110 mg/dL [facility]: 0 [facility] Past Encounters 06/22/2021 Mixed Anxiety and Depressive Disorder Aman Tovar MD: [address] [place] [phone], Ph. 05/15/2021 Mood Disorder Aman Tovar MD: [address] [place] [address], Ph. 04/13/2021 Left Flank Pain Joao Wright MD: [address] [place] [address], Ph. 03/08/2021 Liver Function Tests Abnormal Joao Wright MD: [address] [place] [address], Ph. 02/27/2021 Joao Wright MD: [address] [place] [address], Ph. 01/12/2021 Pain in Right Lower Limb; Pain in Right Arm; Acute Nontraumatic Kidney Injury; Liver Function Tests Abnormal; Tobacco User Joao Wright MD: [address] [place] [address], Ph. 12/09/2020 Joao Wright MD: [address] [place] [address], Ph. 12/08/2020 Tobacco User; Acute Nontraumatic Kidney Injury; Rhabdomyolysis; Pain in Right Lower Limb; Pain in Right Arm; Liver Function Tests Abnormal; Cellulitis Joao Wright MD: [address] [place] [phone], Ph. 11/17/2020 Bipolar Disorder; Chronic Pain; Adult Health Examination Joao Wright MD: [address] [place] [address], Ph. 11/03/2020 Posttraumatic Stress Disorder; Panic Disorder; Bipolar Disorder Vangie Mccord, PARIMUT[employer]EL CLERK-R: [address] [place] [phone], Ph. 10/13/2020 Posttraumatic Stress Disorder; Panic Disorder; Generalized Anxiety Disorder; Bipolar II Disorder, Most Recent Episode Major Depressive Vangie Alexandero, [employer]IMUT[employer]EL CLERK-R: [address] [place] [address], Ph. 09/22/2020 Posttraumatic Stress Disorder; Panic Disorder; Generalized Anxiety Disorder; Bipolar II Disorder, Most Recent Episode Major Depressive Vangie Alexandero, [employer] CLERK-R: [address] [place] [address], Ph. 09/15/2020 Joao Wright MD: [address] [place] [address], Ph. 09/08/2020 Bipolar Disorder; Posttraumatic Stress Disorder Vangie Mccord, [employer]IMUT[employer]EL CLERK-R: [address] [place] [address], Ph. 08/25/2020 Posttraumatic Stress Disorder; Bipolar Disorder; Generalized Anxiety Disorder DELMER BurnettW-R: [address] [place] [address], Ph. 06/23/2020 Posttraumatic Stress Disorder; Panic Disorder; Bipolar Disorder; Generalized Anxiety Disorder Vangie Mccord, PARIMUT[employer]EL CLERK-R: [address] [place] [address], Ph. Social History Tobacco Smoking Status Former Smoker Vaccine List Notes: Pt declines covid vaccine. Plan of Care Reminders Provider Appointments None recorded. Lab None recorded. Referral None recorded. Procedures None recorded. Surgeries None recorded. Imaging None recorded. Vitals 06/22/2021 09:30AM TELEPSYCH 30 Height 72 in 05/15/2021 02:00PM TELEPSYCH 60 Height Weight BMI 72 in 153 lbs 3.2 oz 20.8 kg/m2 04/13/2021 11:00AM ESTABLISHED [id number] Height Weight BMI Blood Pressure 72 in 146 lbs 19.8 kg/m2 114/79 mm[Hg] 02/27/2021 08:10AM NURSE LAB COLLECTION Height 72 in 01/12/2021 03:20PM ESTABLISHED [id number] Height Weight BMI Blood Pressure 72 in [...]
--- OUTSIDE RECORDS SUMMARY | 2021-07-25 17:49 | CCD ---
Author Author [facility] Organization [facility] Address Unknown Phone Unavailable Care Team Providers Care Joinery Setter Out Name Role Phone Kim Wright MD Unavailable Unavailable Kim Wright MD Unavailable Unavailable Kim Wright MD Unavailable Unavailable Kim Wright MD Unavailable Unavailable Kim Wright MD Unavailable Unavailable Kim Wright MD Unavailable Unavailable Kim Wright MD Unavailable Unavailable Kim Wright MD Unavailable Unavailable Kim Wright MD Unavailable Unavailable Kim Wright MD Unavailable Unavailable Kim Wright MD Unavailable Unavailable Kim Wright MD Unavailable Unavailable Kim Wright MD Unavailable Unavailable Kim Wright MD Unavailable Unavailable Kim Wright MD Unavailable Unavailable Kim Wright MD Unavailable Unavailable Kim Wright MD Unavailable Unavailable Kim Wright MD Unavailable Unavailable Kim Wright MD Unavailable Unavailable Kim Wright MD Unavailable Unavailable Kim Wright MD Unavailable Unavailable Kim Wright MD Unavailable Unavailable Kim Wright MD Unavailable Unavailable Kim Wright MD Unavailable Unavailable Kim Wright MD Unavailable Unavailable Kim Wright MD Unavailable Unavailable Kim Wright MD Unavailable Unavailable Kim Wright MD Unavailable Unavailable Kim Wright MD Unavailable Unavailable Kim Wright MD Unavailable Unavailable Kim Wright MD Unavailable Unavailable Kim Wright MD Unavailable Unavailable Kim Wright MD Unavailable Unavailable Kim Wright MD Unavailable Unavailable Kim Wright MD Unavailable Unavailable Kim Wright MD Unavailable Unavailable Kim Wright MD Unavailable Unavailable Kim Wright MD Unavailable Unavailable Kim Wright MD Unavailable Unavailable Kim Wright MD Unavailable Unavailable Kim Wright MD Unavailable Unavailable Kim Wright MD Unavailable Unavailable Kim Wright MD Unavailable Unavailable Kim Wright MD Unavailable Unavailable Kim Wright MD Unavailable Unavailable Kim Wright MD Unavailable Unavailable Kim Wright MD Unavailable Unavailable Kim Wright MD Unavailable Unavailable Kim Wright MD Unavailable Unavailable Kim Wright MD Unavailable Unavailable Kim Wright MD Unavailable Unavailable Kim Wright MD Unavailable Unavailable Kim Wright MD Unavailable Unavailable Kim Wright MD Unavailable Unavailable Kim Wright MD Unavailable Unavailable Kim Wright MD Unavailable Unavailable Kim Wright MD Unavailable Unavailable Kim Wright MD Unavailable Unavailable Kim Wright MD Unavailable Unavailable Kim Wright MD Unavailable Unavailable Kim Wright MD Unavailable Unavailable Kim Wright MD Unavailable Unavailable Kim Wright MD Unavailable Unavailable Kim Wright MD Unavailable Unavailable Kim Wright MD Unavailable Unavailable Kim Wright MD Unavailable Unavailable Kim Wright MD Unavailable Unavailable Kim Wright MD Unavailable Unavailable Kim Wright MD Unavailable Unavailable Kim Wright MD Unavailable Unavailable Kim Wright MD Unavailable Unavailable Kim Wright MD Unavailable Unavailable Kim Wright MD Unavailable Unavailable Kim Wright MD Unavailable Unavailable Kim Wright MD Unavailable Unavailable Kim Wright MD Unavailable Unavailable Kim Wright MD Unavailable Unavailable Kim Wright MD Unavailable Unavailable Kim Wright MD Unavailable Unavailable Kim Wright MD Unavailable Unavailable Kim Wright MD Unavailable Unavailable Kim Wright MD Unavailable Unavailable Kim Wright MD Unavailable Unavailable Kim Wright MD Unavailable Unavailable Kim Wright MD Unavailable Unavailable Kim Wright MD Unavailable Unavailable Kim Wright MD Unavailable Unavailable Kim Wright MD Unavailable Unavailable Kim Wright MD Unavailable Unavailable Kim Wright MD Unavailable Unavailable Kim Wright MD Unavailable Unavailable Kim Wright MD Unavailable Unavailable Kim Wright MD Unavailable Unavailable Kim Wright MD Unavailable Unavailable Steph Edwards AIR CONDITIONING MANAGER AIR CONDITIONING MANAGER Unavailable Unavailable Aracely Deluca MD Unavailable Unavailable Aracely Deluca MD Unavailable Unavailable Aracely Deluca MD Unavailable Unavailable Aracely Deluca MD Unavailable Unavailable Aracely Deluca MD Unavailable Unavailable Aracely Deluca MD Unavailable Unavailable Aracely Deluca MD Unavailable Unavailable Aracely Deluca MD Unavailable Unavailable Aracely Deluca MD Unavailable Unavailable Aracely Deluca MD Unavailable Unavailable Aracely Deluca MD Unavailable Unavailable Vangie Mccord Unavailable [phone] Fish, Becky [facility], PA-C Unavailable Unavailabl e Fish, [facility], [facility]C Unavailable Unavailabl e Fish, Becky [facility], PA-C Unavailable Unavailabl e Fish, Becky [facility], PA-C Unavailable Unavailabl e Fish, [facility], PA-C Unavailable Unavailabl e Fish, [facility] Unavailable Unavailabl e Fish, [facility]C Unavailable Unavailabl e Fish, [facility], PA-C Unavailable Unavailabl e Fish, [facility], PA-C Unavailable Unavailabl e Fish, [facility] Unavailable Unavailabl e Fish, Becky [facility], PA-C Unavailable Unavailabl e Fish, Becky [facility], PA-C Unavailable Unavailabl e Fish, [facility], [facility]C Unavailable Unavailabl e Fish, [facility], PA-C Unavailable Unavailabl e Fish, [facility], PA-C Unavailable Unavailabl e Fish, [facility], PA-C Unavailable Unavailabl e Fish, [facility], PA-C Unavailable Unavailabl e Fish, [facility], PA-C Unavailable Unavailabl e Fish, [facility], PA-C Unavailable Unavailabl e Fish, [facility], PA-C Unavailable Unavailabl e Fish, [facility], PA-C Unavailable Unavailabl e Fish, [facility], PA-C Unavailable Unavailabl e Fish, [facility], PA-C Unavailable Unavailabl e Fish, [facility], PA-C Unavailable Unavailabl e Fish, [facility], PA-C Unavailable Unavailabl e Fish, [facility], PA-C Unavailable Unavailabl e Fish, [facility], PA-C Unavailable Unavailabl e Fish, [facility], PA-C Unavailable Unavailabl e Fish, [facility], PA-C Unavailable Unavailabl e Fish, [facility], PA-C Unavailable Unavailabl e Fish, [facility], PA-C Unavailable Unavailabl e Fish, [facility], PA-C Unavailable Unavailabl e Fish, [facility], PA-C Unavailable Unavailabl e Fish, [facility], PA-C Unavailable Unavailabl e Fish, [facility], PA-C Unavailable Unavailabl e Fish, [facility], PA-C Unavailable Unavailabl e Noemí Tovar MD Unavailable Unavailable Noemí Tovar MD Unavailable Unavailable Noemí Tovar MD Unavailable Unavailable Noemí Tovar MD Unavailable Unavailable Noemí Tovar MD Unavailable Unavailable Noemí Tovar MD Unavailable Unavailable Noemí Tovar MD Unavailable Unavailable Noemí Tovar MD Unavailable Unavailable Noemí Tovar MD Unavailable Unavailable Jade Edwards AIR CONDITIONING MANAGER-BC Unavailable Unavailable Jade Edwards AIR CONDITIONING MANAGER-BC Unavailable Unavailable Jade Edwards AIR CONDITIONING MANAGER-BC Unavailable Unavailable Jade Edwards AIR CONDITIONING MANAGER-BC Unavailable Unavailable Jade Edwards AIR CONDITIONING MANAGER-BC Unavailable Unavailable Jade Edwards AIR CONDITIONING MANAGER-BC Unavailable Unavailable Jade Edwards AIR CONDITIONING MANAGER-BC Unavailable Unavailable Jade Edwards AIR CONDITIONING MANAGER-BC Unavailable Unavailable Edwards, F Steph AIR CONDITIONING MANAGER-BC Unavailable Unavailable Edwards, F Steph AIR CONDITIONING MANAGER-BC Unavailable Unavailable Edwards, F Steph AIR CONDITIONING MANAGER-BC Unavailable Unavailable Edwards, F Steph AIR CONDITIONING MANAGER-BC Unavailable Unavailable Edwards, F Steph AIR CONDITIONING MANAGER-BC Unavailable Unavailable Edwards, F Steph AIR CONDITIONING MANAGER-BC Unavailable Unavailable Edwards, F Steph AIR CONDITIONING MANAGER-BC Unavailable Unavailable Edwards, F Steph AIR CONDITIONING MANAGER-BC Unavailable Unavailable Edwards, F Steph AIR CONDITIONING MANAGER-BC Unavailable Unavailable Edwards, F Steph AIR CONDITIONING MANAGER-BC Unavailable Unavailable Edwards, F Steph AIR CONDITIONING MANAGER-BC Unavailable Unavailable Edwards, F Steph AIR CONDITIONING MANAGER-BC Unavailable Unavailable Edwards, F Steph AIR CONDITIONING MANAGER-BC Unavailable Unavailable Edwards, F Steph AIR CONDITIONING MANAGER-BC Unavailable Unavailable Edwards, F Steph AIR CONDITIONING MANAGER-BC Unavailable Unavailable Re-disclosure Warning The records that you are about to access may contain information from federally-assisted alcohol or drug abuse programs. If such information is present, then the following federally mandated warning applies: This information has been disclosed to you from records protected by federal confidentiality rules (42 CFR part 2). The federal rules prohibit you from making any further disclosure of this information unless further disclosure is expressly permitted by the written consent of the person to whom it pertains or as otherwise permitted by 42 CFR part 2. A general authorization for the release of medical or other information is NOT sufficient for this purpose. The Federal rules restrict any use of the information to criminally investigate or prosecute any alcohol or drug abuse patient.The records that you are about to access may contain highly sensitive health information, the redisclosure of which is protected by Article 27-F of the [facility] Public Health law. If you continue you may have access to information: Regarding HIV / AIDS; Provided by facilities licensed or operated by the [facility] Office of Mental Health; or Provided by the [facility] Office for People With Developmental Disabilities. If such information is present, then the following [facility] mandated warning applies: This information has been disclosed to you from confidential records which are protected by state law. State law prohibits you from making any further disclosure of this information without the specific written consent of the person to whom it pertains, or as otherwise permitted by law. Any unauthorized further disclosure in violation of state law may result in a fine or senior living sentence or both. A general authorization for the release of medical or other information is NOT sufficient authorization for further disc losure. Allergies and Adverse Reactions Type Description Substance Reaction Status Data Source(s ) Allergy to substance Allergy to substance Allergy to substance [place] ([facility]) Allergy to substance Allergy to substance Allergy to substance [place] ([facility]) Allergy to substance Allergy to substance Allergy to substance [place] ([facility]) Encounters Encounter Providers Location Date Indications Data Source(s ) Aman Tovar MD: [address] [place] [address], Ph. Attender: Aman Tovar MD [facility] Medical 06/22/2021 12:00:00 AM EDT [place] ([facility]) Aman Tovar MD: [address] [place] [address], Ph. Attender: Aman Tovar MD [facility] Medical 05/15/2021 12:00:00 AM EDT [place] ([facility]) Aman Tovar MD: [address] [place] [address], Ph. Attender: Aman Tovar MD [facility] Medical 05/15/2021 12:00:00 AM EDT [place] ([facility]) Joao Wright MD: [address] [place] [address], Ph. Attender: Joao Wright MD [facility] Medical 04/13/2021 12:00:00 AM EDT [place] ([facility]) Joao Wright MD: [address] [place] [address], Ph. Attender: Joao Wright MD [facility] Medical 04/13/2021 12:00:00 AM EDT [place] ([facility]) Joao Wright MD: [address] [place] [address], Ph. Attender: Joao Wright MD [facility] Medical 04/13/2021 12:00:00 AM EDT [place] ([facility]) Unknown [address] [facility] [address] 03/23/2021 12:00:00 AM EDT [facility]1 ([facility]) Outpatient [address] [facility] [address] 03/23/2021 12:00:00 AM EDT [facility]1 ([facility]) OFFICE OUTPATIENT VISIT 15 MINUTES Attender: BRANDI TheodoreC Physical Therapy 03/09/2021 11:00:00 AM EDT [facility] ([facility]) Joao Wright MD: [address] [place] [address], Ph. Attender: Joao Wright MD [facility] Medical 03/08/2021 12:00:00 AM EDT [place] ([facility]) Joao Wright MD: [address] [place] [address], Ph. Attender: Joao Wright MD [facility] Medical 03/08/2021 12:00:00 AM EDT [place] ([facility]) Joao Wright MD: [address] [place] [address], Ph. Attender: Joao Wright MD [facility] Medical 03/08/2021 12:00:00 AM EDT [place] ([facility]) Joao Wright MD: [address] [place] [address], Ph. Attender: Joao Wright MD [facility] Medical 03/08/2021 12:00:00 AM EDT [place] ([facility]) Joao Wright MD: [address] [place] [address], Ph. Attender: Joao Wright MD [facility] Medical 02/27/2021 12:00:00 AM EDT [place] ([facility]) Joao Wright MD: [address] [place] [address], Ph. Attender: Joao Wright MD [facility] Medical 02/27/2021 12:00:00 AM EDT [place] ([facility]) Joao Wright MD: [address] [place] [address], Ph. Attender: Joao Wright MD [facility] Medical 02/27/2021 12:00:00 AM EDT [place] ([facility]) Joao Wright MD: [address] [place] [address], Ph. Attender: Joao Wright MD [facility] Medical 02/27/2021 12:00:00 AM EDT [place] ([facility]) Joao Wright MD: [address] [place] [address], Ph. Attender: Joao Wright MD [facility] Medical 02/27/2021 12:00:00 AM EDT [place] ([facility]) Outpatient [address] [facility] [id number] 02/23/2021 12:00:00 AM EDT eCW1 ([facility]) OFFICE OUTPATIENT VISIT 15 MINUTES Attender: Sotero Deluca MD P hysical Therapy 01/18/2021 01:15:00 PM EDT [facility] ([facility]) Joao Wright MD: [address] [place] [address], Ph. Attender: Joao Wright MD [facility] Medical 01/12/2021 12:00:00 AM EDT [place] ([facility]) Joao Wright MD: [address] [place] [address], Ph. Attender: Joao Wright MD [facility] Medical 01/12/2021 12:00:00 AM EDT [place] ([facility]) Joao Wright MD: [address] [place] [address], Ph. Attender: Joao Wright MD [facility] Medical 01/12/2021 12:00:00 AM EDT [place] ([facility]) Joao Wright MD: [address] [place] [address], Ph. Attender: Joao Wright MD [facility] Medical 01/12/2021 12:00:00 AM EDT [place] ([facility]) Joao Wright MD: [address] [place] [address], Ph. Attender: Joao Wright MD [facility] Medical 01/12/2021 12:00:00 AM EDT [place] ([facility]) Joao Wright MD: [address] [place] [address], Ph. Attender: Joao Wright MD [facility] Medical 01/12/2021 12:00:00 AM EDT [place] ([facility]) Outpatient [address] [facility] [id number] 01/05/2021 12:00:00 AM EDT eCW1 ([facility]) Outpatient Attender: Sotero Deluca MD Physical Therapy 01:30:00 PM EDT [facility] ([facility]) Joao Wright MD: [address] [place] [address], Ph. Attender: Joao Wright MD [facility] Medical 12/09/2020 12:00:00 AM EDT [place] ([facility]) Joao Wright MD: [address] [place] [address], Ph. Attender: Joao Wright MD [facility] Medical 12/09/2020 12:00:00 AM EDT [place] ([facility]) Joao Wright MD: [address] [place] [address], Ph. Attender: Joao Wright MD [facility] Medical 12/09/2020 12:00:00 AM EDT [place] ([facility]) Joao Wright MD: [address] [place] [address], Ph. Attender: Joao Wright MD [facility] Medical 12/09/2020 12:00:00 AM EDT [place] ([facility]) Joao Wright MD: [address] [place] [address], Ph. Attender: Joao Wright MD [facility] Medical 12/09/2020 12:00:00 AM EDT [place] ([facility]) Joao Wright MD: [address] [place] [address], Ph. Attender: Joao Wright MD [facility] Medical 12/09/2020 12:00:00 AM EDT [place] ([facility]) Joao Wright MD: [address] [place] [address], Ph. Attender: Joao Wright MD [facility] Medical 12/09/2020 12:00:00 AM EDT [place] ([facility]) Joao Wright MD: [address] [place] [address], Ph. Attender: Joao Wright MD [facility] Medical 12/08/2020 12:00:00 AM EDT [place] ([facility]) Joao Wright MD: [address] [place] [address], Ph. Attender: Joao Wright MD [facility] Medical 12/08/2020 12:00:00 AM EDT [place] ([facility]) Joao Wright MD: [address] [place] [address], Ph. Attender: Joao Wright MD [facility] Medical 12/08/2020 12:00:00 AM EDT [place] ([facility]) Joao Wright MD: [address] [place] [address], Ph. Attender: Joao Wright MD [facility] Medical 12/08/2020 12:00:00 AM EDT [place] ([facility]) Joao Wright MD: [address] [place] [address], Ph. Attender: Joao Wright MD [facility] Medical 12/08/2020 12:00:00 AM EDT [place] ([facility]) Joao Wright MD: [address] [place] [address], Ph. Attender: Joao Wright MD [facility] Medical 12/08/2020 12:00:00 AM EDT [place] ([facility]) Joao Wright MD: [address] [place] [address], Ph. Attender: Joao Wright MD [facility] Medical 12/08/2020 12:00:00 AM EDT [place] ([facility]) Joao Wright MD: [address] [place] [address], Ph. Attender: Joao Wright MD [facility] Medical 12/08/2020 12:00:00 AM EDT [place] ([facility]) Outpatient [address] [facility] [address] 11/24/2020 12:00:00 AM EDT eCW1 ([facility]) Joao Wright MD: [address] [place] [address], Ph. Attender: Joao Wright MD [facility] Medical 11/17/2020 12:00:00 AM EDT [place] ([facility]) Joao Wright MD: [address] [place] [address], Ph. Attender: Joao Wright MD [facility] Medical 11/17/2020 12:00:00 AM EDT [place] ([facility]) Joao Wright MD: [address] [place] [address], Ph. Attender: Joao Wright MD [facility] Medical 11/17/2020 12:00:00 AM EDT [place] ([facility]) Joao Wright MD: [address] [place] [address], Ph. Attender: Joao Wright MD [facility] Medical 11/17/2020 12:00:00 AM EDT [place] ([facility]) Joao Wright MD: [address] [place] [address], Ph. Attender: Joao Wright MD [facility] Medical 11/17/2020 12:00:00 AM EDT [place] ([facility]) Joao Wright MD: [address] [place] [address], Ph. Attender: Joao Wright MD [facility] Medical 11/17/2020 12:00:00 AM EDT [place] ([facility]) Joao Wright MD: [address] [place] [address], Ph. Attender: Joao Wright MD [facility] Medical 11/17/2020 12:00:00 AM EDT [place] ([facility]) Joao Wright MD: [address] [place] [address], Ph. Attender: Joao Wright MD [facility] Medical 11/17/2020 12:00:00 AM EDT [place] ([facility]) Joao Wright MD: [address] [place] [address], Ph. Attender: Joao Wright MD [facility] Medical 11/17/2020 12:00:00 AM EDT [place] ([facility]) Vangie Mccord INDUSTRIAL CUSTODIAN-R: [address] [place] [address], Ph. Attender: Vangie Mccord [facility] Medical 11/03/2020 12:00:00 AM EDT [place] ([facility]) Vangie Mccord INDUSTRIAL CUSTODIAN-R: [address] [place] [address], Ph. Attender: Vangie Mccord [facility] Medical 11/03/2020 12:00:00 AM EDT [place] ([facility]) Vangie Mccord INDUSTRIAL CUSTODIAN-R: [address] [place] [address], Ph. Attender: Vangie Mccord [facility] Medical 11/03/2020 12:00:00 AM EDT [place] ([facility]) Vangie Mccord, INDUSTRIAL CUSTODIAN-R: [address] , [place] [address], Ph. Attender: Vangie Mccord [facility] Medical 11/03/2020 12:00:00 AM EDT [place] ([facility]) Vangie Mccord, INDUSTRIAL CUSTODIAN-R: [address] , [place] [address], Ph. Attender: Vangie Mccord [facility] Medical 11/03/2020 12:00:00 AM EDT [place] ([facility]) Vangie Mccord, INDUSTRIAL CUSTODIAN-R: [address] [place] [address], Ph. Attender: Vangie Mccord [facility] Medical 11/03/2020 12:00:00 AM EDT [place] ([facility]) Vangie Mccord, INDUSTRIAL CUSTODIAN-R: [address] [place] [address], Ph. Attender: Vangie Mccord [facility] Medical 11/03/2020 12:00:00 AM EDT [place] ([facility]) Vangie Mccord, INDUSTRIAL CUSTODIAN-R: [address] [place] [address], Ph. Attender: Vangie Mccord [facility] Medical 11/03/2020 12:00:00 AM EDT [place] ([facility]) Vangie Mccord, INDUSTRIAL CUSTODIAN-R: [address] [place] [address], Ph. Attender: Vangie Mccord [facility] Medical 11/03/2020 12:00:00 AM EDT [place] ([facility]) Vangie Pennmasonveronique, INDUSTRIAL CUSTODIAN-R: [address] , [place] [address], Ph. Attender: Vangie Mccord [facility] Medical 11/03/2020 12:00:00 AM EDT [place] ([facility]) Vangie Mccord, INDUSTRIAL CUSTODIAN-R: [address] , [place] [address], Ph. Attender: Vangie Rosalinakayleighlinda [facility] Medical 11/03/2020 12:00:00 AM EDT [place] ([facility]) Vangie Pennmasonveronique, INDUSTRIAL CUSTODIAN-R: [address] , [place] [address], Ph. Attender: Vangie Rosalinakayleighlinda [facility] Medical 10/13/2020 12:00:00 AM EST [place] ([facility]) Vangie Rosalinakayleighlinda, INDUSTRIAL CUSTODIAN-R: [address] [place] [address], Ph. Attender: Vangie Rosalinakayleighlinda [facility] Medical 10/13/2020 12:00:00 AM EST [place] ([facility]) Vangie Rosalinakayleighlinda, INDUSTRIAL CUSTODIAN-R: [address] , [place] [address], Ph. Attender: Vangie Suri [facility] Medical 10/13/2020 12:00:00 AM EST CHARLENE ([facility]) Vangie Suri, INDUSTRIAL CUSTODIAN-R: [address] , [place] [address], Ph. Attender: Vangie Mccord [facility] Medical 10/13/2020 12:00:00 AM EST CHARLENE ([facility]) Vangie Mccord, INDUSTRIAL CUSTODIAN-R: [address] , [place] [address], Ph. Attender: Vangie Mccord [facility] Medical 10/13/2020 12:00:00 AM EST CHARLENE ([facility]) Vangie Mccord, INDUSTRIAL CUSTODIAN-R: [address] , [place] [address], Ph. Attender: Vangie Mccord [facility] Medical 10/13/2020 12:00:00 AM EST CHARLENE ([facility]) Vangie Mccord, INDUSTRIAL CUSTODIAN-R: [address] [place] [address], Ph. Attender: Vangie Mccord [facility] Medical 10/13/2020 12:00:00 AM EST CHARLENE ([facility]) Vangie Mccord, INDUSTRIAL CUSTODIAN-R: [address] [place] [address], Ph. Attender: Vangie Filicrystallinda [facility] Medical 10/13/2020 12:00:00 AM EST CHARLENE ([facility]) Vangie Mccord, INDUSTRIAL CUSTODIAN-R: [address] [place] [address], Ph. Attender: Vangie Filidane [facility] Medical 10/13/2020 12:00:00 AM EST CHARLENE ([facility]) Vangie Rosalinakayleighlinda, INDUSTRIAL CUSTODIAN-R: [address] , [place] [address], Ph. Attender: Vangie Mccord [facility] Medical 10/13/2020 12:00:00 AM EST CHARLENE ([facility]) Vangie Mccord, INDUSTRIAL CUSTODIAN-R: [address] , [place] [address], Ph. Attender: Vangie Mccord [facility] Medical 10/13/2020 12:00:00 AM EST CHARLENE ([facility]) Vangie Mccord, INDUSTRIAL CUSTODIAN-R: [address] , [place] [address], Ph. Attender: Vangie Mccord [facility] Medical 10/13/2020 12:00:00 AM EST [facility]E ([facility]) Vangie Mccord, INDUSTRIAL CUSTODIAN-R: [address] , [place] [address], Ph. Attender: Vangie Mccord [facility] Medical 09/22/2020 12:00:00 AM EST [facility]E ([facility]) Vangie Mccord, INDUSTRIAL CUSTODIAN-R: [address] [place] [address], Ph. Attender: Vangie Mccord [facility] Medical 09/22/2020 12:00:00 AM EST [facility]E ([facility]) Vangie Mccord, INDUSTRIAL CUSTODIAN-R: [address] [place] [address], Ph. Attender: Vangie Mccord [facility] Medical 09/22/2020 12:00:00 AM EST [facility]E ([facility]) Vangie Filicrystalo, INDUSTRIAL CUSTODIAN-R: [address] , [place] [address], Ph. Attender: Vangie Mccord [facility] Medical 09/22/2020 12:00:00 AM EST [facility]E ([facility]) Vangie Mccord, INDUSTRIAL CUSTODIAN-R: [address] [place] [address], Ph. Attender: Vangie Mccord [facility] Medical 09/22/2020 12:00:00 AM EST [facility]E ([facility]) Vangie Mccord, INDUSTRIAL CUSTODIAN-R: [address] [place] [address], Ph. Attender: Vangie Rosalinakayleighlinda [facility] Medical 09/22/2020 12:00:00 AM EST [facility] ([facility]) Vangie Mccord, INDUSTRIAL CUSTODIAN-R: [address] [place] [address], Ph. Attender: Vangie Rosalinakayleighlinda [facility] Medical 09/22/2020 12:00:00 AM EST [facility] ([facility]) Vangie Rosalinakayleighlinda, INDUSTRIAL CUSTODIAN-R: [address] [place] [address], Ph. Attender: Vangie Alexanderlinda [facility] Medical 09/22/2020 12:00:00 AM EST [facility] ([facility]) Vangie Mccord, INDUSTRIAL CUSTODIAN-R: [address] [place] [address], Ph. Attender: Vangie Suri [facility] Medical 09/22/2020 12:00:00 AM EST [facility] ([facility]) Vangie Mccord, INDUSTRIAL CUSTODIAN-R: [address] [place] [address], Ph. Attender: Vangie Mccord [facility] Medical 09/22/2020 12:00:00 AM EST [facility] ([facility]) Vangie Mccord, INDUSTRIAL CUSTODIAN-R: [address] [place] [address], Ph. Attender: Vangie Mccord [facility] Medical 09/22/2020 12:00:00 AM EST [facility] ([facility]) Vangie Mccord, INDUSTRIAL CUSTODIAN-R: [address] [place] [address], Ph. Attender: Vangie Alexanderlinda [facility] Medical 09/22/2020 12:00:00 AM EST [facility] ([facility]) Vangie Mccord, INDUSTRIAL CUSTODIAN-R: [address] [place] [address], Ph. Attender: Vangie Mccord [facility] Medical 09/22/2020 12:00:00 AM EST [facility] ([facility]) Vangie Mccord, INDUSTRIAL CUSTODIAN-R: [address] [place] [address], Ph. Attender: Vangie Mccord [facility] Medical 09/22/2020 12:00:00 AM EST [facility] ([facility]) Vangie Mccord, INDUSTRIAL CUSTODIAN-R: [address] [place] [address], Ph. Attender: Vangie Rosalinakayleighlinda [facility] Medical 09/22/2020 12:00:00 AM EST [facility] ([facility]) Joao Wright MD: [address] [place] [address], Ph. Attender: Joao Wright MD [facility] Medical 09/15/2020 12:00:00 AM EST [facility] ([facility]) Joao Wright MD: [address] [place] [address], Ph. Attender: Joao Wright MD [facility] Medical 09/15/2020 12:00:00 AM EST [facility] ([facility]) Joao Wright MD: [address] [place] [address], Ph. Attender: Joao Wright MD [facility] Medical 09/15/2020 12:00:00 AM EST [facility] ([facility]) Joao Wright MD: [address] [place] [address], Ph. Attender: Joao Wright MD [facility] Medical 09/15/2020 12:00:00 AM EST [facility] ([facility]) Joao Wright MD: [address] [place] [address], Ph. Attender: Joao Wright MD [facility] Medical 09/15/2020 12:00:00 AM EST [facility] ([facility]) Joao Wright MD: [address] [place] [address], Ph. Attender: Joao Wright MD [facility] Medical 09/15/2020 12:00:00 AM EST [facility] ([facility]) Joao Wright MD: [address] [place] [address], Ph. Attender: Joao Wright MD [facility] Medical 09/15/2020 12:00:00 AM EST [facility] ([facility]) Joao Wright MD: [address] [place] [address], Ph. Attender: Joao Wright MD [facility] Medical 09/15/2020 12:00:00 AM EST [facility] ([facility]) Joao Wright MD: [address] [place] [address], Ph. Attender: Joao Wright MD [facility] Medical 09/15/2020 12:00:00 AM EST [facility] ([facility]) Joao Wright MD: [address] [place] [address], Ph. Attender: Joao Wright MD [facility] Medical 09/15/2020 12:00:00 AM EST [facility] ([facility]) Joao Wright MD: [address] [place] [address], Ph. Attender: Joao Wright MD [facility] Medical 09/15/2020 12:00:00 AM EST [facility] ([facility]) Joao Wright MD: [address] [place] [address], Ph. Attender: Joao Wright MD [facility] Medical 09/15/2020 12:00:00 AM EST [facility] ([facility]) Joao Wright MD: [address] [place] [address], Ph. Attender: Joao Wright MD [facility] Medical 09/15/2020 12:00:00 AM EST [facility] ([facility]) Joao Wright MD: [address] [place] [address], Ph. Attender: Joao Wright MD [facility] Medical 09/15/2020 12:00:00 AM EST [facility] ([facility]) Joao Wright MD: [address] [place] [address], Ph. Attender: Joao Wright MD [facility] Medical 09/15/2020 12:00:00 AM EST [facility] ([facility]) Vangie Suri, INDUSTRIAL CUSTODIAN-R: [address] [place] [address], Ph. Attender: Vangie Mccord [facility] Medical 09/08/2020 12:00:00 AM EST [facility] ([facility]) Vangie Suri, INDUSTRIAL CUSTODIAN-R: [address] [place] [address], Ph. Attender: Vangie Suri [facility] Medical 09/08/2020 12:00:00 AM EST [facility] ([facility]) Vangie Suri, INDUSTRIAL CUSTODIAN-R: [address] [place] [address], Ph. Attender: Vangie Mccord [facility] Medical 09/08/2020 12:00:00 AM EST [facility] ([facility]) Vangie Suri, INDUSTRIAL CUSTODIAN-R: [address] [place] [address], Ph. Attender: Vangie Mccord [facility] Medical 09/08/2020 12:00:00 AM EST [facility] ([facility]) Vangie Suri, INDUSTRIAL CUSTODIAN-R: [address] [place] [address], Ph. Attender: Vangie Mccord [facility] Medical 09/08/2020 12:00:00 AM EST [facility] ([facility]) Vangie Mccord, INDUSTRIAL CUSTODIAN-R: [address] [place] [address], Ph. Attender: Vangie Rosalinakayleighlinda [facility] Medical 09/08/2020 12:00:00 AM EST [facility] ([facility]) Vangie Mccord, INDUSTRIAL CUSTODIAN-R: [address] , [place] [address], Ph. Attender: Vangie Rosalinakayleighlinda [facility] Medical 09/08/2020 12:00:00 AM EST [facility] ([facility]) Vangie Pennmasonkayleighlinda, INDUSTRIAL CUSTODIAN-R: [address] [place] [address], Ph. Attender: Vangie Rosalinakayleighlinda [facility] Medical 09/08/2020 12:00:00 AM EST [facility] ([facility]) Vangie Mccord, INDUSTRIAL CUSTODIAN-R: [address] [place] [address], Ph. Attender: Vangie Rosalinakayleighlinda [facility] Medical 09/08/2020 12:00:00 AM EST [facility] ([facility]) Vangie Mccord, INDUSTRIAL CUSTODIAN-R: [address] [place] [address], Ph. Attender: Vangie Rosalinakayleighlinda [facility] Medical 09/08/2020 12:00:00 AM EST [facility]E ([facility]) Vangie Rosalinakayleighlinda, INDUSTRIAL CUSTODIAN-R: [address] , [place] [address], Ph. Attender: Vangie Mccord [facility] Medical 09/08/2020 12:00:00 AM EST [facility]E ([facility]) Vangie Mccord, INDUSTRIAL CUSTODIAN-R: [address] , [place] [address], Ph. Attender: Vangie Mccord [facility] Medical 09/08/2020 12:00:00 AM EST [facility]E ([facility]) Vangie Mccord, INDUSTRIAL CUSTODIAN-R: [address] , [place] [address], Ph. Attender: Vangie Mccord [facility] Medical 09/08/2020 12:00:00 AM EST [facility]E ([facility]) Vangie Mccord, INDUSTRIAL CUSTODIAN-R: [address] [place] [address], Ph. Attender: Vangie Pennmasonkayleighlinda [facility] Medical 09/08/2020 12:00:00 AM EST [facility] ([facility]) Vangie Mccord, INDUSTRIAL CUSTODIAN-R: [address] [place] [address], Ph. Attender: Vangie Rosalinakayleighlinda [facility] Medical 09/08/2020 12:00:00 AM EST [facility]E ([facility]) Vangie Mccord, INDUSTRIAL CUSTODIAN-R: [address] [place] [address], Ph. Attender: Vangie Filidane [facility] Medical 09/08/2020 12:00:00 AM EST [facility]E ([facility]) Vangie Rosalinakayleighlinda, INDUSTRIAL CUSTODIAN-R: [address] , [place] [address], Ph. Attender: Vangie Mccord [facility] Medical 08/25/2020 12:00:00 AM EST [facility]E ([facility]) Vangie Mccord, INDUSTRIAL CUSTODIAN-R: [address] [place] [address], Ph. Attender: Vangie Alexnadero [facility] Medical 08/25/2020 12:00:00 AM EST [facility] ([facility]) Vangie Mccord, INDUSTRIAL CUSTODIAN-R: [address] [place] [address], Ph. Attender: Vangie Alexanderlinda [facility] Medical 08/25/2020 12:00:00 AM EST [facility] ([facility]) Vangie Mccord, INDUSTRIAL CUSTODIAN-R: [address] [place] [address], Ph. Attender: Vangie Pennmasonkayleighlinda [facility] Medical 08/25/2020 12:00:00 AM EST [facility]E ([facility]) Vangie Alexanderlinda, INDUSTRIAL CUSTODIAN-R: [address] [place] [address], Ph. Attender: Vangie Filicrystalo [facility] Medical 08/25/2020 12:00:00 AM EST [facility] ([facility]) Vangie Pennmasonkayleigho, INDUSTRIAL CUSTODIAN-R: [address] [place] [address], Ph. Attender: Vangie Rosalinakayleighlinda [facility] Medical 08/25/2020 12:00:00 AM EST [facility] ([facility]) Vangie Suri, INDUSTRIAL CUSTODIAN-R: [address] [place] [address], Ph. Attender: Vangie Mccord [facility] Medical 08/25/2020 12:00:00 AM EST [facility] ([facility]) Vangie Mccord, INDUSTRIAL CUSTODIAN-R: [address] [place] [address], Ph. Attender: Vangie Mccord [facility] Medical 08/25/2020 12:00:00 AM EST [facility] ([facility]) Vangie Mccord, INDUSTRIAL CUSTODIAN-R: [address] [place] [address], Ph. Attender: Vangie Rosalinakayleighlinda [facility] Medical 08/25/2020 12:00:00 AM EST [facility]E ([facility]) Vangie Mccord, INDUSTRIAL CUSTODIAN-R: [address] [place] [address], Ph. Attender: Vangie Mccord [facility] Medical 08/25/2020 12:00:00 AM EST [facility] ([facility]) Vangie Mccord, INDUSTRIAL CUSTODIAN-R: [address] [place] [address], Ph. Attender: Vangie Mccord [facility] Medical 08/25/2020 12:00:00 AM EST [facility] ([facility]) Vangie Mccord, INDUSTRIAL CUSTODIAN-R: [address] [place] [address], Ph. Attender: Vangie Rosalinakayleighlinda [facility] Medical 08/25/2020 12:00:00 AM EST [facility]E ([facility]) Vangie Mccord, INDUSTRIAL CUSTODIAN-R: [address] [place] [address], Ph. Attender: Vangie Mccord [facility] Medical 08/25/2020 12:00:00 AM EST [facility]E ([facility]) Vangie Mccord, INDUSTRIAL CUSTODIAN-R: [address] [place] [address], Ph. Attender: Vangie Mccord [facility] Medical 08/25/2020 12:00:00 AM SARA CHANG ([facility]) Vangie Mccord, INDUSTRIAL CUSTODIAN-R: [address] [place] [address], Ph. Attender: Vangie Mccord [facility] Medical 08/25/2020 12:00:00 AM EST [facility]E ([facility]) Vangie Mccord, INDUSTRIAL CUSTODIAN-R: [address] [place] [address], Ph. Attender: Vangie Mccord [facility] Medical 08/25/2020 12:00:00 AM SARA CHANG ([facility]) Vangie Mccord, INDUSTRIAL CUSTODIAN-R: [address] [place] [address], Ph. Attender: Vangie Filicrystalo [facility] Medical 08/25/2020 12:00:00 AM EST [facility]E ([facility]) Vangie Mccord, INDUSTRIAL CUSTODIAN-R: [address] [place] [address], Ph. Attender: Vangie Rosalinakayleigho [facility] Medical 08/25/2020 12:00:00 AM EST [facility]LENE ([facility]) Outpatient [address] [facility] [address] 06/30/2020 12:00:00 AM EST eCW1 ([facility]) Vangie Suri, INDUSTRIAL CUSTODIAN-R: [address] [place] [address], Ph. Attender: Vangie Mccord [facility] Medical 06/23/2020 12:00:00 AM EST [facility]E ([facility]) Vangie Mccord, INDUSTRIAL CUSTODIAN-R: [address] [place] [address], Ph. Attender: Vangie Mccord [facility] Medical 06/23/2020 12:00:00 AM EST [facility]E ([facility]) Vangierenee Mccord, INDUSTRIAL CUSTODIAN-R: [address] [place] [address], Ph. Attender: Vangie Mccord [facility] Medical 06/23/2020 12:00:00 AM EST [facility]E ([facility]) Vangie Mccord, INDUSTRIAL CUSTODIAN-R: [address] [place] [address], Ph. Attender: Vangie Alexandero [facility] Medical 06/23/2020 12:00:00 AM EST [facility] ([facility]) Vangierenee Alexandero, INDUSTRIAL CUSTODIAN-R: [address] [place] [address], Ph. Attender: Vangie Mccord [facility] Medical 06/23/2020 12:00:00 AM EST [facility]E ([facility]) Vangierenee Mccord, INDUSTRIAL CUSTODIAN-R: [address] [place] [address], Ph. Attender: Vangie Pennmasonveronique [facility] Medical 06/23/2020 12:00:00 AM EST [facility] ([facility]) Vangie Mccord, INDUSTRIAL CUSTODIAN-R: [address] [place] [address], Ph. Attender: Vangie Filicrystallinda [facility] Medical 06/23/2020 12:00:00 AM EST [facility]E ([facility]) Vangie Mccord, INDUSTRIAL CUSTODIAN-R: [address] [place] [address], Ph. Attender: Vangie Suri [facility] Medical 06/23/2020 12:00:00 AM EST [facility]E ([facility]) Vangie Mccord, INDUSTRIAL CUSTODIAN-R: [address] [place] [address], Ph. Attender: Vangie Rosalinakayleighlinda [facility] Medical 06/23/2020 12:00:00 AM EST [facility]E ([facility]) Vangie Rosalinakayleighlinda, INDUSTRIAL CUSTODIAN-R: [address] [place] [address], Ph. Attender: Vangie Rosalinakayleigho [facility] Medical 06/23/2020 12:00:00 AM EST [facility] ([facility]) Vangie Filidane, INDUSTRIAL CUSTODIAN-R: [address] [place] [address], Ph. Attender: Vangie Suri [facility] Medical 06/23/2020 12:00:00 AM EST [facility]E ([facility]) Vangie Mccord, INDUSTRIAL CUSTODIAN-R: [address] [place] [address], Ph. Attender: Vangie Mccord [facility] Medical 06/23/2020 12:00:00 AM EST [facility] ([facility]) Vangie Mccord, INDUSTRIAL CUSTODIAN-R: [address] [place] [address], Ph. Attender: Vangie Alexanderlinda [facility] Medical 06/23/2020 12:00:00 AM EST [facility] ([facility]) Vangie Mccord, INDUSTRIAL CUSTODIAN-R: [address] [place] [address], Ph. Attender: Vangie Rosalinakayleighlinda [facility] Medical 06/23/2020 12:00:00 AM EST [facility] ([facility]) Vangie Mccord, INDUSTRIAL CUSTODIAN-R: [address] [place] [address], Ph. Attender: Vangie Rosalinakayleighlinda [facility] Medical 06/23/2020 12:00:00 AM EST [facility] ([facility]) Vangie Suri, INDUSTRIAL CUSTODIAN-R: [address] [place] [address], Ph. Attender: Vangie Rosalinakayleigho [facility] Medical 06/23/2020 12:00:00 AM EST [facility] ([facility]) Vangie Rosalinakayleighlinda, INDUSTRIAL CUSTODIAN-R: [address] [place] [address], Ph. Attender: Vangie Suri [facility] Medical 06/23/2020 12:00:00 AM EST [facility]E ([facility]) Vangie Mccord, INDUSTRIAL CUSTODIAN-R: [address] [place] [address], Ph. Attender: Vangie Mccord ID - [facility] Medical 06/23/2020 12:00:00 AM SARA CHANG ([facility]) Outpatient Attender: Steph THOMPSONP- FP 06/05/2020 12: 32:59 PM EDT [facility] Outpatient Attender: TIFFANIE MORENO 06/01/2020 01:34:00 PM EDT [facility] Medications Medication Brand Name Start Date Product Form Dose Route Admi nistrative Instructions Pharmacy Instructions Status Indications Reaction Description Data Source(s) 25 mg 05/22/2021 12:00:00 AM EDT tablet 30 TAKE ONE TABLET BY MOUTH AT BEDTIME TAKE ONE TABLET BY MOUTH AT BEDTIME SOLD: 05/22/2021 [facility] 400 mg 05/22/2021 12:00:00 AM EDT capsule 90 TAKE ONE CAPSULE BY MOUTH THREE TIMES A DAY TAKE ONE CAPSULE BY MOUTH THREE TIMES A DAY SOLD: 05/22/2021 [facility] Escitalopram 10 MG Oral Tablet ESCITALOPRAM OXALATE 05/16/2021 1 2:00:00 AM EDT tablet 30 TAKE ONE TABLET BY MOUTH EVERY D AY DIRECTED TAKE ONE TABLET BY MOUTH EVERY DAY DIRECTED SOLD: 05/22/2021 [facility] 5-325 mg 12/02/2020 12:00:00 AM EDT tablet 12 TAKE ONE TABLET BY MOUTH FOUR TIMES A DAY NEEDED FOR PAIN MAXIMUM DAILY DOSE = 4 TABLETS TAKE ONE TABLET BY MOUTH FOUR TIMES A DAY NEEDED FOR PAIN MAXIMUM DAILY DOSE = 4 TABLETS SOLD: 12/02/2020 [facility] 8.6 mg 12/02/2020 12:00:00 AM EDT tablet 12 TAKE TWO TABLETS BY MOUTH TWICE A DAY NEEDED FOR BOWEL CARE TAKE TWO TABLETS BY MOUTH TWICE A DAY NEEDED FOR BOWEL CARE SOLD: 12/02/2020 [facility] Cephalexin 500 MG Oral Capsule CEPHALEXIN 11/29/2020 12:00:00 AM EDT capsule 40 TAKE ONE CAPSULE BY MOUTH FOUR TIMES A DAY TAKE ONE CA PSULE BY MOUTH FOUR TIMES A DAY SOLD: 12/02/2020 [facility] 100 mg 11/29/2020 12:00:00 AM EDT capsule 20 TAKE ONE CAPSULE BY MOUTH TWICE A DAY TAKE ONE CAPSULE BY MOUTH TWICE A DAY SOLD: 12/02/2020 [facility] 25 mg 04/14/2020 12:00:00 AM EDT tablet 30 TAKE ONE TABLET BY MOUTH AT BEDTIME TAKE ONE TABLET BY MOUTH AT BEDTIME SOLD: 12/02/2020 [facility] Escitalopram 10 MG Oral Tablet ESCITALOPRAM OXALATE 04/04/2020 1 2:00:00 AM EDT tablet 30 TAKE ONE TABLET BY MOUTH AT BEDT NEGIN TAKE ONE TABLET BY MOUTH AT BEDTIME SOLD: 12/02/2020 [facility] 400 mg 01/28/2020 12:00:00 AM EDT capsule 90 TAKE ONE CAPSULE BY MOUTH THREE TIMES A DAY TAKE ONE CAPSULE BY MOUTH THREE TIMES A DAY SOLD: 12/02/2020 [facility] sildenafil 100 MG Oral Tablet sildenafil 100 mg tablet TAKE ONE TABLET BY MOUTH EVERY DAY NEEDED sildenafil 100 mg tablet TAKE ONE TABLET BY MOUTH EVERY DAY NEEDED completed sildenafil 1 00 MG Oral Tablet [facility] ([facility]) Ibuprofen 800 MG Oral Tablet ibuprofen 8 00 mg tablet TAKE ONE TABLET BY MOUTH THREE TIMES A DAY NEEDED WITH FOOD OR MILK ibuprofen 800 mg tablet TAKE ONE TABLET BY MOUTH THREE TIMES A DAY NEEDED WITH FOOD OR MILK completed ibuprofen 800 MG Oral Tablet [facility] ([facility]) Omeprazole 20 MG Delayed Release Oral Ca psule omeprazole 20 mg capsule,delayed release TAKE ONE CAPSULE BY MOUTH EVERY DAY IN THE MORNING ON AN EMPTY STOMACH omeprazole 20 mg capsule,delayed release TAKE ONE CAPSULE BY MOUTH EVERY DAY IN THE MORNING ON AN EMPTY STOMACH comple melissa omeprazole 20 MG Delayed Release Oral Capsule [facility]E ([facility]) sildenafil 100 MG Oral Tablet sildenafil 100 mg tablet TAKE ONE TABLET BY MOUTH EVERY DAY NEEDED sildenafil 100 mg tablet TAKE ONE TABLET BY MOUTH EVERY DAY NEEDED completed sildenafil 1 00 MG Oral Tablet [facility] ([facility]) Ibuprofen 800 MG Oral Tablet ibuprofen 8 00 mg tablet TAKE ONE TABLET BY MOUTH THREE TIMES A DAY NEEDED WITH FOOD OR MILK ibuprofen 800 mg tablet TAKE ONE TABLET BY MOUTH THREE TIMES A DAY NEEDED WITH FOOD OR MILK completed ibuprofen 800 MG Oral Tablet ATH [place] ([facility]) sildenafil 100 MG Oral Tablet sildenafil 100 mg tablet TAKE ONE TABLET BY MOUTH EVERY DAY NEEDED sildenafil 100 mg tablet TAKE ONE TABLET BY MOUTH EVERY DAY NEEDED completed sildenafil 1 00 MG Oral Tablet [place]LEN[place] ([facility]) Omeprazole 20 MG Delayed Release Oral Ca psule omeprazole 20 mg capsule,delayed release TAKE ONE CAPSULE BY MOUTH EVERY DAY IN THE MORNING ON AN EMPTY STOMACH omeprazole 20 mg capsule,delayed release TAKE ONE CAPSULE BY MOUTH EVERY DAY IN THE MORNING ON AN EMPTY STOMACH comple melissa omeprazole 20 MG Delayed Release Oral Capsule [place] ([facility]) Ibuprofen 800 MG Oral Tablet ibuprofen 8 00 mg tablet TAKE ONE TABLET BY MOUTH THREE TIMES A DAY NEEDED WITH FOOD OR MILK ibuprofen 800 mg tablet TAKE ONE TABLET BY MOUTH THREE TIMES A DAY NEEDED WITH FOOD OR MILK completed ibuprofen 800 MG Oral Tablet [place] ([facility]) sennosides, JAIL 8.6 MG Oral Tablet [Alexia a-Time] senna 8.6 mg tablet TAKE TWO TABLETS BY MOUTH TWICE A DAY NEEDED FOR BOWEL CARE senna 8.6 mg tablet TAKE TWO TABLETS BY MOUTH TWICE A DAY NEEDED FOR BOWEL CARE completed sennosides, JAIL 8.6 MG Oral Tablet [Alexia a-Time] [place] ([facility]) sildenafil 100 MG Oral Tablet sildenafil 100 mg tablet TAKE ONE TABLET BY MOUTH EVERY DAY NEEDED sildenafil 100 mg tablet TAKE ONE TABLET BY MOUTH EVERY DAY NEEDED completed sildenafil 1 00 MG Oral Tablet [place] ([facility]) Doxycycline Monohydrate 100 MG Oral Caps ule doxycycline monohydrate 100 mg capsule BID doxycycline monohydrate 100 mg capsule BID completed doxycycline monohydrate 100 MG Oral Capsule [facility] ([facility]) Cephalexin 500 MG Oral Capsule cephalexin 500 mg capsu le PO QID cephalexin 500 mg capsule PO QID completed ceph alexin 500 MG Oral Capsule [place] ([facility]) Cephalexin 500 MG Oral Capsule cephalexin 500 mg capsu le PO QID cephalexin 500 mg capsule PO QID completed cep alexin 500 MG Oral Capsule [place] ([facility]) sildenafil 100 MG Oral Tablet sildenafil 100 mg tablet TAKE ONE TABLET BY MOUTH EVERY DAY NEEDED sildenafil 100 mg tablet TAKE ONE TABLET BY MOUTH EVERY DAY NEEDED completed sildenafil 1 00 MG Oral Tablet [place] ([facility]) gabapentin 300 MG Oral Capsule gabapenti n 300 mg capsule TAKE 1 CAPSULE BY MOUTH THREE TIMES A DAY FOR PAIN gabapentin 300 mg capsule TAKE 1 CAPSULE BY MOUTH THREE TIMES A DAY FOR PAIN completed gabapentin 300 MG Oral Capsule [place] ([facility]) gabapentin 300 MG Oral Capsule gabapenti n 300 mg capsule TAKE 1 CAPSULE BY MOUTH THREE TIMES A DAY FOR PAIN gabapentin 300 mg capsule TAKE 1 CAPSULE BY MOUTH THREE TIMES A DAY FOR PAIN completed gabapentin 300 MG Oral Capsule [place] ([facility]) gabapentin 300 MG Oral Capsule gabapenti n 300 mg capsule TAKE 1 CAPSULE BY MOUTH THREE TIMES A DAY FOR PAIN gabapentin 300 mg capsule TAKE 1 CAPSULE BY MOUTH THREE TIMES A DAY FOR PAIN completed gabapentin 300 MG Oral Capsule [place] ([facility]) Omeprazole 20 MG Delayed Release Oral Ca psule omeprazole 20 mg capsule,delayed release TAKE ONE CAPSULE BY MOUTH EVERY DAY IN THE MORNING ON AN EMPTY STOMACH omeprazole 20 mg capsule,delayed release TAKE ONE CAPSULE BY MOUTH EVERY DAY IN THE MORNING ON AN EMPTY STOMACH comple melissa omeprazole 20 MG Delayed Release Oral Capsule [place] ([facility]) Cephalexin 500 MG Oral Capsule cephalexin 500 mg capsu le PO QID cephalexin 500 mg capsule PO QID completed ceph alexin 500 MG Oral Capsule [place] ([facility]) sennosides, JAIL 8.6 MG Oral Tablet [Alexia a-Time] senna 8.6 mg tablet TAKE TWO TABLETS BY MOUTH TWICE A DAY NEEDED FOR BOWEL CARE senna 8.6 mg tablet TAKE TWO TABLETS BY MOUTH TWICE A DAY NEEDED FOR BOWEL CARE completed sennosides, JAIL 8.6 MG Oral Tablet [Alexia a-Time] [place] ([facility]) Acetaminophen 325 MG / Oxycodone Hydroch loride 5 MG Oral Tablet oxycodone- acetaminophen 5 mg-325 mg tablet TAKE ONE TABLET BY MOUTH FOUR TIMES A DAY NEEDED FOR PAIN MAXIMUM DAILY DOSE 4 TABLETS oxycodone-acetaminophen 5 mg-325 mg tablet TAKE ONE TABLET BY MOUTH FOUR TIMES A DAY NEEDED FOR PAIN MAXIMUM DAILY DOSE 4 TABLETS completed acetaminophen 325 MG / oxycodone hydrochloride 5 MG Oral Tablet [place] ([facility]) Acetaminophen 325 MG / Oxycodone Hydroch loride 5 MG Oral Tablet oxycodone- acetaminophen 5 mg-325 mg tablet TAKE ONE TABLET BY MOUTH FOUR TIMES A DAY NEEDED FOR PAIN MAXIMUM DAILY DOSE 4 TABLETS oxycodone-acetaminophen 5 mg-325 mg tablet TAKE ONE TABLET BY MOUTH FOUR TIMES A DAY NEEDED FOR PAIN MAXIMUM DAILY DOSE 4 TABLETS completed acetaminophen 325 MG / oxycodone hydrochloride 5 MG Oral Tablet [place] ([facility]) Doxycycline Monohydrate 100 MG Oral Caps ule doxycycline monohydrate 100 mg capsule BID doxycycline monohydrate 100 mg capsule BID completed doxycycline monohydrate 100 MG Oral Capsule [place] ([facility]) gabapentin 300 MG Oral Capsule gabapenti n 300 mg capsule TAKE 1 CAPSULE BY MOUTH THREE TIMES A DAY FOR PAIN gabapentin 300 mg capsule TAKE 1 CAPSULE BY MOUTH THREE TIMES A DAY FOR PAIN completed gabapentin 300 MG Oral Capsule [place] ([facility]) Omeprazole 20 MG Delayed Release Oral Ca psule omeprazole 20 mg capsule,delayed release TAKE ONE CAPSULE BY MOUTH EVERY DAY IN THE MORNING ON AN EMPTY STOMACH omeprazole 20 mg capsule,delayed release TAKE ONE CAPSULE BY MOUTH EVERY DAY IN THE MORNING ON AN EMPTY STOMACH comple melissa omeprazole 20 MG Delayed Release Oral Capsule [place] ([facility]) sildenafil 100 MG Oral Tablet sildenafil 100 mg tablet TAKE ONE TABLET BY MOUTH EVERY DAY NEEDED sildenafil 100 mg tablet TAKE ONE TABLET BY MOUTH EVERY DAY NEEDED completed sildenafil 1 00 MG Oral Tablet [place] ([facility]) Omeprazole 20 MG Delayed Release Oral Ca psule omeprazole 20 mg capsule,delayed release TAKE ONE CAPSULE BY MOUTH EVERY DAY IN THE MORNING ON AN EMPTY STOMACH omeprazole 20 mg capsule,delayed release TAKE ONE CAPSULE BY MOUTH EVERY DAY IN THE MORNING ON AN EMPTY STOMACH comple melissa omeprazole 20 MG Delayed Release Oral Capsule [place] ([facility]) gabapentin 300 MG Oral Capsule gabapenti n 300 mg capsule TAKE 1 CAPSULE BY MOUTH THREE TIMES A DAY FOR PAIN gabapentin 300 mg capsule TAKE 1 CAPSULE BY MOUTH THREE TIMES A DAY FOR PAIN completed gabapentin 300 MG Oral Capsule [place] ([facility]) sildenafil 100 MG Oral Tablet sildenafil 100 mg tablet TAKE ONE TABLET BY MOUTH EVERY DAY NEEDED sildenafil 100 mg tablet TAKE ONE TABLET BY MOUTH EVERY DAY NEEDED completed sildenafil 1 00 MG Oral Tablet [place] ([facility]) sildenafil 100 MG Oral Tablet sildenafil 100 mg tablet TAKE ONE TABLET BY MOUTH EVERY DAY NEEDED sildenafil 100 mg tablet TAKE ONE TABLET BY MOUTH EVERY DAY NEEDED completed sildenafil 1 00 MG Oral Tablet [place] ([facility]) Acetaminophen 325 MG / Oxycodone Hydroch loride 5 MG Oral Tablet oxycodone- acetaminophen 5 mg-325 mg tablet TAKE ONE TABLET BY MOUTH FOUR TIMES A DAY NEEDED FOR PAIN MAXIMUM DAILY DOSE 4 TABLETS oxycodone-acetaminophen 5 mg-325 mg tablet TAKE ONE TABLET BY MOUTH FOUR TIMES A DAY NEEDED FOR PAIN MAXIMUM DAILY DOSE 4 TABLETS completed acetaminophen 325 MG / oxycodone hydrochloride 5 MG Oral Tablet [place] ([facility]) Omeprazole 20 MG Delayed Release Oral Ca psule omeprazole 20 mg capsule,delayed release TAKE ONE CAPSULE BY MOUTH EVERY DAY IN THE MORNING ON AN EMPTY STOMACH omeprazole 20 mg capsule,delayed release TAKE ONE CAPSULE BY MOUTH EVERY DAY IN THE MORNING ON AN EMPTY STOMACH comple melissa omeprazole 20 MG Delayed Release Oral Capsule [place] ([facility]) gabapentin 300 MG Oral Capsule gabapenti n 300 mg capsule TAKE 1 CAPSULE BY MOUTH THREE TIMES A DAY FOR PAIN gabapentin 300 mg capsule TAKE 1 CAPSULE BY MOUTH THREE TIMES A DAY FOR PAIN completed gabapentin 300 MG Oral Capsule [place] ([facility]) Acetaminophen 325 MG / Oxycodone Hydroch loride 5 MG Oral Tablet oxycodone- acetaminophen 5 mg-325 mg tablet TAKE ONE TABLET BY MOUTH FOUR TIMES A DAY NEEDED FOR PAIN MAXIMUM DAILY DOSE 4 TABLETS oxycodone-acetaminophen 5 mg-325 mg tablet TAKE ONE TABLET BY MOUTH FOUR TIMES A DAY NEEDED FOR PAIN MAXIMUM DAILY DOSE 4 TABLETS completed acetaminophen 325 MG / oxycodone hydrochloride 5 MG Oral Tablet [place] ([facility]) Doxycycline Monohydrate 100 MG Oral Caps ule doxycycline monohydrate 100 mg capsule BID doxycycline monohydrate 100 mg capsule BID completed doxycycline monohydrate 100 MG Oral Capsule [place] ([facility]) Cephalexin 500 MG Oral Capsule cephalexin 500 mg capsu le PO QID cephalexin 500 mg capsule PO QID completed ceph alexin 500 MG Oral Capsule [place] ([facility]) Omeprazole 20 MG Delayed Release Oral Ca psule omeprazole 20 mg capsule,delayed release TAKE ONE CAPSULE BY MOUTH EVERY DAY IN THE MORNING ON AN EMPTY STOMACH omeprazole 20 mg capsule,delayed release TAKE ONE CAPSULE BY MOUTH EVERY DAY IN THE MORNING ON AN EMPTY STOMACH comple melissa omeprazole 20 MG Delayed Release Oral Capsule [place] ([facility]) Omeprazole 20 MG Delayed Release Oral Ca psule omeprazole 20 mg capsule,delayed release TAKE ONE CAPSULE BY MOUTH EVERY DAY IN THE MORNING ON AN EMPTY STOMACH omeprazole 20 mg capsule,delayed release TAKE ONE CAPSULE BY MOUTH EVERY DAY IN THE MORNING ON AN EMPTY STOMACH comple melissa omeprazole 20 MG Delayed Release Oral Capsule [place] ([facility]) gabapentin 300 MG Oral Capsule gabapenti n 300 mg capsule TAKE 1 CAPSULE BY MOUTH THREE TIMES A DAY FOR PAIN gabapentin 300 mg capsule TAKE 1 CAPSULE BY MOUTH THREE TIMES A DAY FOR PAIN completed gabapentin 300 MG Oral Capsule [place] ([facility]) gabapentin 300 MG Oral Capsule gabapenti n 300 mg capsule TAKE 1 CAPSULE BY MOUTH THREE TIMES A DAY FOR PAIN gabapentin 300 mg capsule TAKE 1 CAPSULE BY MOUTH THREE TIMES A DAY FOR PAIN completed gabapentin 300 MG Oral Capsule [place] ([facility]) Ibuprofen 800 MG Oral Tablet ibuprofen 8 00 mg tablet TAKE ONE TABLET BY MOUTH THREE TIMES A DAY NEEDED WITH FOOD OR MILK ibuprofen 800 mg tablet TAKE ONE TABLET BY MOUTH THREE TIMES A DAY NEEDED WITH FOOD OR MILK completed ibuprofen 800 MG Oral Tablet ATH [place] ([facility]) sennosides, JAIL 8.6 MG Oral Tablet [Alexia a-Time] senna 8.6 mg tablet TAKE TWO TABLETS BY MOUTH TWICE A DAY NEEDED FOR BOWEL CARE senna 8.6 mg tablet TAKE TWO TABLETS BY MOUTH TWICE A DAY NEEDED FOR BOWEL CARE completed sennosides, JAIL 8.6 MG Oral Tablet [Alexia a-Time] [place] ([facility]) Insurance Providers Payer name Policy type / Coverage type Policy ID Covered alliance party ID Covered alliance party's relationship to mary Policy Mary Plan Information Medicaid Dental S [id number] S [id number] [facility] COMMUNITY PL[facility] [id number] SP [id number] [facility] COMMUNITY PLAN [facility] [id number] SP [id number] [facility] COMMUNITY PLAN [facility] [id number] SP [id number] [facility] [id number] SP [id number] [facility] COMMUNITY PLAN [facility] [id number] SP [id number] Managed Care - [facility] P [id number] S [id number] Managed Care - [facility] Community Plan P [id number] S [id number] Managed Care - [facility] P UNAVAILABLE S UNAVAILABLE Medicaid S [id number] S [id number] Managed Care - [facility] Community Plan P [id number] S [id number] Managed Care - [facility] Community Plan P [id number] S [id number] Medicaid S [id number] S [id number] Managed Care - [facility] P [id number] S [id number] [facility]icaid [id number] [facility] O [id number] S [id number] ANSI-Medicaid [id number] ANSI-Medicaid [id number] UN COMMUNITY PLAN MCDHMO [id number] SP [id number] [facility]icaid [id number] UN COMMUNITY PLAN MCDHMO [id number] SP [id number] [facility] O [id number] S [id number] D Managed Care [facility] P [id number] S [id number] D [facility] O [id number] S [id number] UN COMMUNITY PLAN MCDHMO [id number] SP [id number] [place] PPO 302/[id number] SP [id number] [facility] COMMUNITY PLAN MCDHMO [id number] SP [id number] [place] [id number] SP [id number] MEDICAID [id number] SP [id number] [facility] COMMUNITY PLAN MCDHMO [id number] SP [id number] [facility] COMMUNITY PLAN MCDHMO [id number] SP [id number] Self Pay P [id number] S [id number] ANSI-Medicaid [id number] ANSI-Medicaid [id number] [facility]icaid [id number] [facility] [id number] [facility]-Medicaid [id number] [facility]-Medicaid [id number] Problems, Conditions, and Diagnoses Code Display Name Description Problem Type Effective Dates Data Source(s) 959581787 Left flank pain Left Flank Pain Problem 04/13/2021 12:0 0:00 AM EDT [place] ([facility]) [id number] Left flank pain Left Flank Pain Problem 04/13/2021 12:0 0:00 AM EDT [place] ([facility]) [id number] Left flank pain Left Flank Pain Problem 04/13/2021 12:0 0:00 AM EDT [place] ([facility]) [id number] Acute nontraumatic kidney injury Acute N ontraumatic Kidney Injury Problem 12/08/2020 12:00:00 AM EDT [place] ([facility]) [id number] Liver function tests abnormal Liver Function Tests Abn ormal Problem 12/08/2020 12:00:00 AM EDT [place] ([facility]) [id number] Pain in right lower limb Pain in Right Lower Limb Prob freedom 12/08/2020 12:00:00 AM EDT [place] ([facility]) [id number] Pain in right arm Pain in Right Arm Problem 12/08 12:00:00 AM EDT [place] ([facility]) [id number] Rhabdomyolysis Rhabdomyolysis Problem 12/08/2020 12:00: 00 AM EDT [place] ([facility]) [id number] Cellulitis Cellulitis Problem 12/08/2020 12:00:00 AM ED T [place] ([facility]) [id number] Tobacco user Tobacco User Problem 12/08/2020 12:00:00 A M EDT [place] ([facility]) [id number] Acute nontraumatic kidney injury Acute N ontraumatic Kidney Injury Problem 12/08/2020 12:00:00 AM EDT [place] ([facility]) [id number] Liver function tests abnormal Liver Function Tests Abn ormal Problem 12/08/2020 12:00:00 AM EDT [place] ([facility]) [id number] Pain in right lower limb Pain in Right Lower Limb Prob freedom 12/08/2020 12:00:00 AM EDT [place] ([facility]) [id number] Pain in right arm Pain in Right Arm Problem 12/08 12:00:00 AM EDT [place] ([facility]) [id number] Rhabdomyolysis Rhabdomyolysis Problem 12/08/2020 12:00: 00 AM EDT [place] ([facility]) [id number] Cellulitis Cellulitis Problem 12/08/2020 12:00:00 AM ED T [place] ([facility]) [id number] Tobacco user Tobacco User Problem 12/08/2020 12:00:00 A M EDT [place] ([facility]) [id number] Acute nontraumatic kidney injury Acute N ontraumatic Kidney Injury Problem 12/08/2020 12:00:00 AM EDT [place] ([facility]) [id number] Liver function tests abnormal Liver Function Tests Abn ormal Problem 12/08/2020 12:00:00 AM EDT [place] ([facility]) [id number] Pain in right lower limb Pain in Right Lower Limb Prob freedom 12/08/2020 12:00:00 AM EDT [place] ([facility]) [id number] Pain in right arm Pain in Right Arm Problem 12/08 12:00:00 AM EDT [place] ([facility]) [id number] Rhabdomyolysis Rhabdomyolysis Problem 12/08/2020 12:00: 00 AM EDT [place] ([facility]) [id number] Cellulitis Cellulitis Problem 12/08/2020 12:00:00 AM ED T [place] ([facility]) [id number] Tobacco user Tobacco User Problem 12/08/2020 12:00:00 A M EDT [place] ([facility]) [id number] Acute nontraumatic kidney injury Acute N ontraumatic Kidney Injury Problem 12/08/2020 12:00:00 AM EDT [place] ([facility]) 049047612 Liver function tests abnormal Liver Function Tests Abn ormal Problem 12/08/2020 12:00:00 AM EDT [place] ([facility]) [id number] Pain in right lower limb Pain in Right Lower Limb Prob freedom 12/08/2020 12:00:00 AM EDT [place] ([facility]) [id number] Pain in right arm Pain in Right Arm Problem 12/08 12:00:00 AM EDT [place] ([facility]) [id number] Rhabdomyolysis Rhabdomyolysis Problem 12/08/2020 12:00: 00 AM EDT [place] ([facility]) [id number] Cellulitis Cellulitis Problem 12/08/2020 12:00:00 AM ED T [place] ([facility]) [id number] Tobacco user Tobacco User Problem 12/08/2020 12:00:00 A M EDT [place] ([facility]) [id number] Acute nontraumatic kidney injury Acute N ontraumatic Kidney Injury Problem 12/08/2020 12:00:00 AM EDT [place] ([facility]) [id number] Liver function tests abnormal Liver Function Tests Abn ormal Problem 12/08/2020 12:00:00 AM EDT [place] ([facility]) [id number] Pain in right lower limb Pain in Right Lower Limb Prob freedom 12/08/2020 12:00:00 AM EDT [place] ([facility]) [id number] Pain in right arm Pain in Right Arm Problem 12/08 12:00:00 AM EDT [place] ([facility]) [id number] Rhabdomyolysis Rhabdomyolysis Problem 12/08/2020 12:00: 00 AM EDT [place] ([facility]) [id number] Cellulitis Cellulitis Problem 12/08/2020 12:00:00 AM ED T [place] ([facility]) [id number] Tobacco user Tobacco User Problem 12/08/2020 12:00:00 A M EDT [place] ([facility]) [id number] Acute nontraumatic kidney injury Acute N ontraumatic Kidney Injury Problem 12/08/2020 12:00:00 AM EDT [place] ([facility]) [id number] Liver function tests abnormal Liver Function Tests Abn ormal Problem 12/08/2020 12:00:00 AM EDT [place] ([facility]) [id number] Pain in right lower limb Pain in Right Lower Limb Prob freedom 12/08/2020 12:00:00 AM EDT [place] ([facility]) [id number] Pain in right arm Pain in Right Arm Problem 12/08 12:00:00 AM EDT [place] ([facility]) [id number] Rhabdomyolysis Rhabdomyolysis Problem 12/08/2020 12:00: 00 AM EDT [place] ([facility]) [id number] Cellulitis Cellulitis Problem 12/08/2020 12:00:00 AM ED T [place] ([facility]) [id number] Tobacco user Tobacco User Problem 12/08/2020 12:00:00 A M EDT [place] ([facility]) [id number] Acute nontraumatic kidney injury Acute N ontraumatic Kidney Injury Problem 12/08/2020 12:00:00 AM EDT [place] ([facility]) [id number] Liver function tests abnormal Liver Function Tests Abn ormal Problem 12/08/2020 12:00:00 AM EDT [place] ([facility]) [id number] Pain in right lower limb Pain in Right Lower Limb Prob freedom 12/08/2020 12:00:00 AM EDT [place] ([facility]) [id number] Pain in right arm Pain in Right Arm Problem 12/08 12:00:00 AM EDT [place] ([facility]) [id number] Rhabdomyolysis Rhabdomyolysis Problem 12/08/2020 12:00: 00 AM EDT [place] ([facility]) [id number] Cellulitis Cellulitis Problem 12/08/2020 12:00:00 AM ED T [place] ([facility]) [id number] Tobacco user Tobacco User Problem 12/08/2020 12:00:00 A M EDT [place] ([facility]) [id number] Acute nontraumatic kidney injury Acute N ontraumatic Kidney Injury Problem 12/08/2020 12:00:00 AM EDT [place] ([facility]) [id number] Liver function tests abnormal Liver Function Tests Abn ormal Problem 12/08/2020 12:00:00 AM EDT [place] ([facility]) [id number] Pain in right lower limb Pain in Right Lower Limb Prob freedom 12/08/2020 12:00:00 AM EDT [place] ([facility]) [id number] Pain in right arm Pain in Right Arm Problem 12/08 12:00:00 AM EDT [place] ([facility]) [id number] Rhabdomyolysis Rhabdomyolysis Problem 12/08/2020 12:00: 00 AM EDT [place] ([facility]) [id number] Cellulitis Cellulitis Problem 12/08/2020 12:00:00 AM ED T [place] ([facility]) [id number] Tobacco user Tobacco User Problem 12/08/2020 12:00:00 A M EDT [place] ([facility]) [id number] Body measurement finding Body Measurement Finding Prob freedom 04/14/2020 12:00:00 AM EDT - 09/05/2020 12:00:00 AM EST [place] ([facility]) [id number] Body measurement finding Body Measurement Finding Prob freedom 04/14/2020 12:00:00 AM EDT - 09/05/2020 12:00:00 AM EST [place] ([facility]) [id number] Body measurement finding Body Measurement Finding Prob freedom 04/14/2020 12:00:00 AM EDT - 09/05/2020 12:00:00 AM EST [place] ([facility]) [id number] Body measurement finding Body Measurement Finding Prob freedom 04/14/2020 12:00:00 AM EDT - 09/05/2020 12:00:00 AM EST [place] ([facility]) [id number] Body measurement finding Body Measurement Finding Prob freedom 04/14/2020 12:00:00 AM EDT - 09/05/2020 12:00:00 AM EST [place] ([facility]) [id number] Body measurement finding Body Measurement Finding Prob freedom 04/14/2020 12:00:00 AM EDT - 09/05/2020 12:00:00 AM EST [place] ([facility]) [id number] Body measurement finding Body Measurement Finding Prob freedom 04/14/2020 12:00:00 AM EDT - 09/05/2020 12:00:00 AM EST [place] ([facility]) [id number] Body measurement finding Body Measurement Finding Prob freedom 04/14/2020 12:00:00 AM EDT - 09/05/2020 12:00:00 AM EST [place] ([facility]) [id number] Body measurement finding Body Measurement Finding Prob freedom 04/14/2020 12:00:00 AM EDT - 09/05/2020 12:00:00 AM EST [place] ([facility]) [id number] Body measurement finding Body Measurement Finding Prob freedom 04/14/2020 12:00:00 AM EDT - 09/05/2020 12:00:00 AM EST [place] ([facility]) [id number] Body measurement finding Body Measurement Finding Prob freedom 04/14/2020 12:00:00 AM EDT - 09/05/2020 12:00:00 AM EST [place] ([facility]) [id number] Body measurement finding Body Measurement Finding Prob freedom 04/14/2020 12:00:00 AM EDT - 09/05/2020 12:00:00 AM EST [place] ([facility]) [id number] Body measurement finding Body Measurement Finding Prob freedom 04/14/2020 12:00:00 AM EDT - 09/05/2020 12:00:00 AM EST [place] ([facility]) [id number] Body measurement finding Body Measurement Finding Prob freedom 04/14/2020 12:00:00 AM EDT - 09/05/2020 12:00:00 AM EST [place] ([facility]) [id number] Body measurement finding Body Measurement Finding Prob freedom 04/14/2020 12:00:00 AM EDT - 09/05/2020 12:00:00 AM EST [place] ([facility]) [id number] Body measurement finding Body Measurement Finding Prob freedom 04/14/2020 12:00:00 AM EDT - 09/05/2020 12:00:00 AM EST [place] ([facility]) [id number] SNOMED CT Concept SNOMED CT Concept Problem 03/05 12:00:00 AM EDT - 09/05/2020 12:00:00 AM EST [place] ([facility]) [id number] SNOMED CT Concept SNOMED CT Concept Problem 03/05 12:00:00 AM EDT - 09/05/2020 12:00:00 AM EST [place] ([facility]) [id number] SNOMED CT Concept SNOMED CT Concept Problem 03/05 12:00:00 AM EDT - 09/05/2020 12:00:00 AM EST [place] ([facility]) [id number] SNOMED CT Concept SNOMED CT Concept Problem 03/05 12:00:00 AM EDT - 09/05/2020 12:00:00 AM EST [place] ([facility]) [id number] SNOMED CT Concept SNOMED CT Concept Problem 03/05 12:00:00 AM EDT - 09/05/2020 12:00:00 AM EST [place] ([facility]) [id number] SNOMED CT Concept SNOMED CT Concept Problem 03/05 12:00:00 AM EDT - 09/05/2020 12:00:00 AM EST [place] ([facility]) [id number] SNOMED CT Concept SNOMED CT Concept Problem 03/05 12:00:00 AM EDT - 09/05/2020 12:00:00 AM EST [place] ([facility]) [id number] SNOMED CT Concept SNOMED CT Concept Problem 03/05 12:00:00 AM EDT - 09/05/2020 12:00:00 AM EST [place] ([facility]) [id number] SNOMED CT Concept SNOMED CT Concept Problem 03/05 12:00:00 AM EDT - 09/05/2020 12:00:00 AM EST [place] ([facility]) [id number] SNOMED CT Concept SNOMED CT Concept Problem 03/05 12:00:00 AM EDT - 09/05/2020 12:00:00 AM EST [place] ([facility]) [id number] SNOMED CT Concept SNOMED CT Concept Problem 03/05 12:00:00 AM EDT - 09/05/2020 12:00:00 AM EST [place] ([facility]) [id number] SNOMED CT Concept SNOMED CT Concept Problem 03/05 12:00:00 AM EDT - 09/05/2020 12:00:00 AM EST [place] ([facility]) [id number] SNOMED CT Concept SNOMED CT Concept Problem 03/05 12:00:00 AM EDT - 09/05/2020 12:00:00 AM EST [place] ([facility]) [id number] SNOMED CT Concept SNOMED CT Concept Problem 03/05 12:00:00 AM EDT - 09/05/2020 12:00:00 AM EST [place] ([facility]) [id number] SNOMED CT Concept SNOMED CT Concept Problem 03/05 12:00:00 AM EDT - 09/05/2020 12:00:00 AM EST [place] ([facility]) [id number] SNOMED CT Concept SNOMED CT Concept Problem 03/05 12:00:00 AM EDT - 09/05/2020 12:00:00 AM EST [place] ([facility]) Surgeries/Procedures Procedure Description Date Indications Data Source(s) OFFICE OUTPATIENT VISIT 15 MINUTES 03/09/2021 12:00:00 AM EDT [facility] ([facility]) OFFICE OUTPATIENT VISIT 15 MINUTES 01/18/2021 12:00:00 AM EDT [facility] ([facility]) X-Ray Femur Minimum 2 Views 12/15/2020 12:00:00 AM EDT [facility] ([facility]) OFFICE OUTPATIENT NEW 45 MINUTES 12/15/2020 12:00:00 A M EDT [facility] ([facility]) Results ID Date Data Source [id number] 02/27/2021 08:35:00 AM EDT [place] ([facility]) Name Value Range Interpretation Code Description Data Keren rce(s) Supporting Document(s) Protein [Mass/volume] in Serum or Plasma 7.4 g/dL 6.1-8.1 Protein, Total [place] ([facility]) Globulin [Mass/volume] in Serum by calculation 2.4 g/dL_(calc) 1.9- 3.7 Globulin [place] ([facility]) Albumin [Mass/volume] in Serum or Plasma 5.0 g/dL 3.6-5.1 Albumin [place] ([facility]) Albumin/Globulin [Mass Ratio] in Serum or Plasma 2.1 (calc) 1.0-2 .5 Albumin/globulin Ratio [place] ([facility]) Bilirubin.total [Mass/volume] in Serum or Plasma 0.9 mg/dL 0.2-1 .2 Bilirubin, Total [place] ([facility]) Bilirubin.direct [Mass/volume] in Serum or Plasma 0.2 mg/dL < or = 0.2 Bilirubin, Direct [place] ([facility]) Bilirubin.indirect [Mass/volume] in Serum or Plasma 0.7 mg/dL_(calc ) 0.2-1.2 Bilirubin, Indirect [place] ([facility]) Alkaline phosphatase [Enzymatic activity/volume] in Serum or Plasma 64 U/L 36-130 Alkaline Phosphatase [place] ([facility]) Aspartate aminotransferase [Enzymatic activity/volume] in Serum or Plasma 16 U/L 10-40 Ast [place] ([facility]) Alanine aminotransferase [Enzymatic activity/volume] in Seru m or Plasma 17 U/L 9-46 Alt [place] ([facility]) ID Date Data Source [id number] 02/27/2021 08:35:00 AM EDT [facility]) Name Value Range Interpretation Code Description Data Keren rce(s) Supporting Document(s) Hepatitis A virus Ab [Presence] in Serum by Immunoassay non- reactive non-reactive Hepatitis a Ab, Total [place] ([facility]) Hepatitis B virus surface Ab [Presence] in Serum by Immunoas say reactive non-reactive Abnormal (applies to non-numeric results) Hepatitis B Surface Antibody Ql [place] ([facility]) Hepatitis B virus surface Ag [Presence] in Serum or Pl asma by Immunoassay non-reactive non-reactive Hepatitis B Surface Antigen [place] ([facility]) Hepatitis B virus core Ab [Presence] in Serum or Plasm a by Immunoassay non-reactive non-reactive Hepatitis B Core Ab Total [place] ([facility]) Hepatitis C virus Ab Signal/Cutoff in Serum or Plasma by Immunoassa y <1.00 Index [place] ([facility]) Hepatitis C virus Ab [Presence] in Serum or Plasma by Immuno assay non-reactive non-reactive [facility] ID Date Data Source [id number] 02/27/2021 08:35:00 AM EDT [facility]) Name Value Range Interpretation Code Description Data Keren rce(s) Supporting Document(s) Albumin [Mass/volume] in Serum or Plasma 5.0 g/dL 3.6-5.1 Albumin [place] ([facility]) Protein [Mass/volume] in Serum or Plasma 7.4 g/dL 6.1-8.1 [facility], [facility] Globulin [Mass/volume] in Serum by calculation 2.4 g/dL_(calc) 1.9- 3.7 Globulin [place] ([facility]) Albumin/Globulin [Mass Ratio] in Serum or Plasma 2.1 (calc) 1.0-2 .5 [facility] Bilirubin.direct [Mass/volume] in Serum or Plasma 0.2 mg/dL < or = 0.2 Bilirubin, Direct [place] ([facility]) Bilirubin.total [Mass/volume] in Serum or Plasma 0.9 mg/dL 0.2-1 .2 Bilirubin, Total [place] ([facility]) Aspartate aminotransferase [Enzymatic activity/volume] in Serum or Plasma 16 U/L 10-40 Ast [place] ([facility]) Alkaline phosphatase [Enzymatic activity/volume] in Serum or Plasma 64 U/L 36-130 Alkaline Phosphatase [place] ([facility]) Bilirubin.indirect [Mass/volume] in Serum or Plasma 0.7 mg/dL_(calc ) 0.2-1.2 Bilirubin, Indirect [place] ([facility]) Alanine aminotransferase [Enzymatic activity/volume] in Seru m or Plasma 17 U/L 9-46 Alt [place] ([facility]) ID Date Data Source [id number] 02/27/2021 08:35:00 AM EDT [place] ([facility]) Name Value Range Interpretation Code Description Data Keren rce(s) Supporting Document(s) Hepatitis A virus Ab [Presence] in Serum by Immunoassay non- reactive non-reactive Hepatitis a Ab, Total [place] ([facility]) Hepatitis B virus surface Ag [Presence] in Serum or Pl asma by Immunoassay non-reactive non-reactive Hepatitis B Surface Antigen ATHE NA ([facility]) Hepatitis B virus surface Ab [Presence] in Serum by Immunoas say reactive non-reactive Abnormal (applies to non-numeric results) Hepatitis B Surface Antibody Ql [place] ([facility]) Hepatitis B virus core Ab [Presence] in Serum or Plasm a by Immunoassay non-reactive non-reactive Hepatitis B Core Ab Total [place] ([facility]) Hepatitis C virus Ab [Presence] in Serum or Plasma by Immuno assay non-reactive non-reactive Hepatitis C Antibody [place] ([facility]) Hepatitis C virus Ab Signal/Cutoff in Serum or Plasma by Immunoassa y <1.00 Index [place] ([facility]) ID Date Data Source [id number] 02/27/2021 08:35:00 AM EDT [place] ([facility]) Name Value Range Interpretation Code Description Data Keren rce(s) Supporting Document(s) Protein [Mass/volume] in Serum or Plasma 7.4 g/dL 6.1-8.1 Protein, Total [place] ([facility]) Albumin [Mass/volume] in Serum or Plasma 5.0 g/dL 3.6-5.1 Albumin [place] ([facility]) Globulin [Mass/volume] in Serum by calculation 2.4 g/dL_(calc) 1.9- 3.7 Globulin [place] ([facility]) Albumin/Globulin [Mass Ratio] in Serum or Plasma 2.1 (calc) 1.0-2 .5 Albumin/globulin Ratio [place] ([facility]) Bilirubin.total [Mass/volume] in Serum or Plasma 0.9 mg/dL 0.2-1 .2 Bilirubin, Total [facility]) Bilirubin.direct [Mass/volume] in Serum or Plasma 0.2 mg/dL < or = 0.2 Bilirubin, Direct [place] ([facility]) Alkaline phosphatase [Enzymatic activity/volume] in Serum or Plasma 64 U/L 36-130 Alkaline Phosphatase [place] ([facility]) Bilirubin.indirect [Mass/volume] in Serum or Plasma 0.7 mg/dL_(calc ) 0.2-1.2 Bilirubin, Indirect [place] ([facility]) Aspartate aminotransferase [Enzymatic activity/volume] in Serum or Plasma 16 U/L 10-40 Ast [place] ([facility]) Alanine aminotransferase [Enzymatic activity/volume] in Seru m or Plasma 17 U/L 9-46 Alt [place] ([facility]) ID Date Data Source [id number] 02/27/2021 08:35:00 AM EDT [facility]) Name Value Range Interpretation Code Description Data Keren rce(s) Supporting Document(s) Hepatitis B virus surface Ab [Presence] in Serum by Immunoas say reactive non-reactive Abnormal (applies to non-numeric results) Hepatitis B Surface Antibody Ql [facility]) Hepatitis A virus Ab [Presence] in Serum by Immunoassay non- reactive non-reactive Hepatitis a Ab, Total [place] ([facility]) Hepatitis B virus surface Ag [Presence] in Serum or Pl asma by Immunoassay non-reactive non-reactive Hepatitis B Surface Antigen ATHE NA ([facility]) Hepatitis B virus core Ab [Presence] in Serum or Plasm a by Immunoassay non-reactive non-reactive Hepatitis B Core Ab Total [place] ([facility]) Hepatitis C virus Ab Signal/Cutoff in Serum or Plasma by Immunoassa y <1.00 Index [place] ([facility]) Hepatitis C virus Ab [Presence] in Serum or Plasma by Immuno assay non-reactive non-reactive Hepatitis C Antibody [place] ([facility]) ID Date Data Source [id number] 02/27/2021 08:35:00 AM EDT [place] ([facility]) Name Value Range Interpretation Code Description Data Keren rce(s) Supporting Document(s) Protein [Mass/volume] in Serum or Plasma 7.4 g/dL 6.1-8.1 Protein, Total [place] ([facility]) Albumin [Mass/volume] in Serum or Plasma 5.0 g/dL 3.6-5.1 Albumin [place] ([facility]) Albumin/Globulin [Mass Ratio] in Serum or Plasma 2.1 (calc) 1.0-2 .5 Albumin/globulin Ratio [place] ([facility]) Globulin [Mass/volume] in Serum by calculation 2.4 g/dL_(calc) 1.9- 3.7 Globulin [place] ([facility]) Bilirubin.total [Mass/volume] in Serum or Plasma 0.9 mg/dL 0.2-1 .2 Bilirubin, Total [place] ([facility]) Bilirubin.direct [Mass/volume] in Serum or Plasma 0.2 mg/dL < or = 0.2 Bilirubin, Direct [place] ([facility]) Alkaline phosphatase [Enzymatic activity/volume] in Serum or Plasma 64 U/L 36-130 Alkaline Phosphatase [place] ([facility]) Bilirubin.indirect [Mass/volume] in Serum or Plasma 0.7 mg/dL_(calc ) 0.2-1.2 Bilirubin, Indirect [place] ([facility]) Aspartate aminotransferase [Enzymatic activity/volume] in Serum or Plasma 16 U/L 10-40 Ast [place] ([facility]) Alanine aminotransferase [Enzymatic activity/volume] in Seru m or Plasma 17 U/L 9-46 Alt [place] ([facility]) ID Date Data Source [id number] 02/27/2021 08:35:00 AM EDT [place] ([facility]) Name Value Range Interpretation Code Description Data Keren rce(s) Supporting Document(s) Hepatitis A virus Ab [Presence] in Serum by Immunoassay non- reactive non-reactive Hepatitis a Ab, Total [place] ([facility]) Hepatitis B virus surface Ab [Presence] in Serum by Immunoas say reactive non-reactive Abnormal (applies to non-numeric results) Hepatitis B Surface Antibody Ql [place] ([facility]) Hepatitis B virus surface Ag [Presence] in Serum or Pl asma by Immunoassay non-reactive non-reactive Hepatitis B Surface Antigen AT[place] NA ([facility]) Hepatitis B virus core Ab [Presence] in Serum or Plasm a by Immunoassay non-reactive non-reactive Hepatitis B Core Ab Total [place] ([facility]) Hepatitis C virus Ab [Presence] in Serum or Plasma by Immuno assay non-reactive non-reactive Hepatitis C Antibody [place] ([facility]) Hepatitis C virus Ab Signal/Cutoff in Serum or Plasma by Immunoassa y <1.00 Index [place] ([facility]) ID Date Data Source [id number] 12/09/2020 11:07:00 AM EDT [facility]) Name Value Range Interpretation Code Description Data Keren rce(s) Supporting Document(s) erythrocyte sedimentation rate 5 mm/HR 0-15 Eryth rocyte Sedimentation Rate [place] ([facility]) ID Date Data Source [id number] 12/09/2020 11:07:00 AM EDT [facility]) Name Value Range Interpretation Code Description Data Keren rce(s) Supporting Document(s) white blood count 8.7 10 4.0-10.0 White Blood Count [place] ([facility]) hemoglobin 13.0 g/dL 13.5-17.5 Below low normal Hemoglobin [place] ( [facility]) red blood count 4.30 10 4.30-6.10 Red Blood Count ATHE NA ([facility]) hematocrit 40.2 % 42.0-52.0 Below low normal Hematocrit [place] ( [facility]) mean corpuscular HGB conc 32.3 g/dL 32.0-36.5 Mean Corpu scular HGB Conc [place] ([facility]) mean corpuscular volume 93.5 fL 80.0-96.0 Mean Corpusc ular Volume [place] ([facility]) mean corpuscular hemoglobin 30.2 pg 27.0-33.0 Mean Cor puscular Hemoglobin [place] ([facility]) platelet count, automated 254 10 150-450 Platelet C ount, Automated [place] ([facility]) neutrophils % 67.2 % 36.0-66.0 Above high normal Neutrophils % A [place] ([facility]) red cell distribution width 12.9 % 11.5-14.5 Red Cell Distribution Width [place] ([facility]) lymph % 20.0 % 24.0-44.0 Below low normal Lymph % [place] ( [facility]) eos % 0.9 % 0.0-3.0 Eos % [place] ([facility]) immature granulocyte % 2.8 % 0-3.0 Immature Gran ulocyte % [place] ([facility]) mono % 8.2 % 2.0-8.0 Above high normal [place] % [place] ([facility]) baso % 0.9 % 0.0-1.0 Baso % [place] ([facility]) neutrophils # 5.8 10 1.5-8.5 Neutrophils # [place] ( [facility]) nucleated red blood cell % 0.0 % 0-0 Nucleated Red Blood Cell % [place] ([facility]) eos # 0.1 10 0.0-0.5 Eos # [place] ([facility]) mono # 0.7 10 0.0-0.8 [place] # [place] ([facility]) lymph # 1.7 10 1.5-5.0 Lymph # [place] ([facility]) baso # 0.1 10 0.0-0.2 Baso # [place] ([facility]) ID Date Data Source [id number] 12/09/2020 11:07:00 AM EDT [place] ([facility]) Name Value Range Interpretation Code Description Data Keren rce(s) Supporting Document(s) glucose, fasting 100 mg/dL 70-100 Glucose, Fasting AT [facility]) blood urea nitrogen 17 mg/dL 7-18 Blood Urea Nitro gen [place] ([facility]) creatinine for GFR 1.11 mg/dL 0.70-1.30 Creatinine for GF R [place] ([facility]) glomerular filtration rate > 60.0 >60 Glomerula r Filtration Rate [place] ([facility]) sodium level 140 mEq/L 136-145 Sodium Level [place] ([facility]) chloride level 105 mEq/L 98-107 Chloride Level [place] ([facility]) potassium serum 4.5 mEq/L 3.5-5.1 Potassium Serum ATHE ([facility]) AST/SGOT 50 U/L 7-37 Above high normal AST/SGOT [place] ([facility]) calcium level 9.2 mg/dL 8.5-10.1 Calcium Level [place] ( [facility]) carbon dioxide level 32 mEq/L 21-32 Carbon Dioxide Level [place] ([facility]) anion gap 3 mEq/L 8-16 Below low normal Anion Gap [place] ( [facility]) ALT/SGPT 108 U/L 12-78 Above high normal ALT/SGPT [place] ([facility]) alkaline phosphatase 67 U/L 45-117 Alkaline Phosph atase [place] ([facility]) total protein 6.5 gm/dL 6.4-8.2 Total Protein [place] ( [facility]) albumin 3.7 gm/dL 3.2-5.2 Albumin [place] ([facility]) bilirubin,total 0.8 mg/dL 0.2-1.0 Bilirubin,total ATHE NA ([facility]) albumin/globulin ratio Albumin/globu dwain Ratio [place] ([facility]) ID Date Data Source [id number] 12/09/2020 11:07:00 AM EDT [place] ([facility]) Name Value Range Interpretation Code Description Data Keren rce(s) Supporting Document(s) erythrocyte sedimentation rate 5 mm/HR 0-15 Eryth rocyte Sedimentation Rate [place] ([facility]) ID Date Data Source [id number] 12/09/2020 11:07:00 AM EDT [place] ([facility]) Name Value Range Interpretation Code Description Data Keren rce(s) Supporting Document(s) red blood count 4.30 10 4.30-6.10 Red Blood Count ATHE NA ([facility]) white blood count 8.7 10 4.0-10.0 White Blood Count [place] ([facility]) mean corpuscular volume 93.5 fL 80.0-96.0 Mean Corpusc ular Volume [place] ([facility]) hemoglobin 13.0 g/dL 13.5-17.5 Below low normal Hemoglobin [place] ( [facility]) hematocrit 40.2 % 42.0-52.0 Below low normal Hematocrit [place] ( [facility]) mean corpuscular HGB conc 32.3 g/dL 32.0-36.5 Mean Corpu scular HGB Conc [place] ([facility]) platelet count, automated 254 10 150-450 [facility]let C [facility]unt, [facility]ated [facility] mean corpuscular hemoglobin 30.2 pg 27.0-33.0 Mean Cor puscular Hemoglobin [place] ([facility]) red cell distribution width 12.9 % 11.5-14.5 Red Cell Distribution Width [place] ([facility]) lymph % 20.0 % 24.0-44.0 Below low normal Lymph % [place] ( [facility]) neutrophils % 67.2 % 36.0-66.0 Above high normal Neutrophils % A THENA ([facility]) eos % 0.9 % 0.0-3.0 Eos % [place] ([facility]) mono % 8.2 % 2.0-8.0 Above high normal [place] % [place] ([facility]) neutrophils # 5.8 10 1.5-8.5 Neutrophils # [place] ( [facility]) immature granulocyte % 2.8 % 0-3.0 Immature Gran ulocyte % [place] ([facility]) baso % 0.9 % 0.0-1.0 Baso % [place] ([facility]) nucleated red blood cell % 0.0 % 0-0 Nucleated Red Blood Cell % [place] ([facility]) mono # 0.7 10 0.0-0.8 [place] # [place] ([facility]) baso # 0.1 10 0.0-0.2 Baso # [place] ([facility]) eos # 0.1 10 0.0-0.5 Eos # [place] ([facility]) lymph # 1.7 10 1.5-5.0 Lymph # [place] ([facility]) ID Date Data Source [id number] 12/09/2020 11:07:00 AM EDT [place] ([facility]) Name Value Range Interpretation Code Description Data Keren rce(s) Supporting Document(s) blood urea nitrogen 17 mg/dL 7-18 Blood Urea Nitro gen [place] ([facility]) glucose, fasting 100 mg/dL 70-100 Glucose, Fasting AT [place] ([facility]) glomerular filtration rate > 60.0 >60 Glomerula r Filtration Rate [place] ([facility]) creatinine for GFR 1.11 mg/dL 0.70-1.30 Creatinine for GF R [place] ([facility]) potassium serum 4.5 mEq/L 3.5-5.1 Potassium Serum ATHE NA ([facility]) chloride level 105 mEq/L 98-107 Chloride Level [place] ([facility]) sodium level 140 mEq/L 136-145 Sodium Level [place] ([facility]) anion gap 3 mEq/L 8-16 Below low normal Anion Gap [place] ( [facility]) calcium level 9.2 mg/dL 8.5-10.1 Calcium Level [place] ( [facility]) carbon dioxide level 32 mEq/L 21-32 Carbon Dioxide Level [place] ([facility]) alkaline phosphatase 67 U/L 45-117 Alkaline Phosph atase [place] ([facility]) bilirubin,total 0.8 mg/dL 0.2-1.0 Bilirubin,total ATHE NA ([facility]) ALT/SGPT 108 U/L 12-78 Above high normal ALT/SGPT [place] ([facility]) AST/SGOT 50 U/L 7-37 Above high normal AST/SGOT [place] ([facility]) total protein 6.5 gm/dL 6.4-8.2 Total Protein [place] ( [facility]) albumin/globulin ratio Albumin/globu dwain Ratio [place] ([facility]) albumin 3.7 gm/dL 3.2-5.2 Albumin [place] ([facility]) ID Date Data Source [id number] 12/09/2020 11:07:00 AM EDT [facility]) Name Value Range Interpretation Code Description Data Keren rce(s) Supporting Document(s) erythrocyte sedimentation rate 5 mm/HR 0-15 Eryth rocyte Sedimentation Rate [place] ([facility]) ID Date Data Source [id number] 12/09/2020 11:07:00 [facility] Name Value Range Interpretation Code Description Data Keren rce(s) Supporting Document(s) white blood count 8.7 10 4.0-10.0 White Blood Count [place] ([facility]) hemoglobin 13.0 g/dL 13.5-17.5 Below low normal Hemoglobin [place] ( [facility]) hematocrit 40.2 % 42.0-52.0 Below low normal Hematocrit [place] ( [facility]) red blood count 4.30 10 4.30-6.10 Red Blood Count ATHE NA ([facility]) mean corpuscular volume 93.5 fL 80.0-96.0 Mean Corpusc ular Volume [place] ([facility]) red cell distribution width 12.9 % 11.5-14.5 Red Cell Distribution Width [place] ([facility]) mean corpuscular hemoglobin 30.2 pg 27.0-33.0 Mean Cor puscular Hemoglobin [place] ([facility]) mean corpuscular HGB conc 32.3 g/dL 32.0-36.5 Mean Corpu scular HGB Conc [place] ([facility]) mono % 8.2 % 2.0-8.0 Above high normal [place] % [place] ([facility]) neutrophils % 67.2 % 36.0-66.0 Above high normal Neutrophils % A THE[place] ([facility]) platelet count, automated 254 10 150-450 Platelet C ount, Automated [place] ([facility]) lymph % 20.0 % 24.0-44.0 Below low normal Lymph % [place] ( [facility]) eos % 0.9 % 0.0-3.0 Eos % [place] ([facility]) baso % 0.9 % 0.0-1.0 Baso % [place] ([facility]) immature granulocyte % 2.8 % 0-3.0 Immature Gran ulocyte % [place] ([facility]) lymph # 1.7 10 1.5-5.0 Lymph # [place] ([facility]) neutrophils # 5.8 10 1.5-8.5 Neutrophils # [place] ( [facility]) mono # 0.7 10 0.0-0.8 [place] # [place] ([facility]) nucleated red blood cell % 0.0 % 0-0 Nucleated Red Blood Cell % [place] ([facility]) baso # 0.1 10 0.0-0.2 Baso # [place] ([facility]) eos # 0.1 10 0.0-0.5 Eos # [place] ([facility]) ID Date Data Source [id number] 12/09/2020 11:07:00 AM EDT [place] ([facility]) Name Value Range Interpretation Code Description Data Keren rce(s) Supporting Document(s) glucose, fasting 100 mg/dL 70-100 Glucose, Fasting AT [facility] ([facility]) creatinine for GFR 1.11 mg/dL 0.70-1.30 Creatinine for GF R [place] ([facility]) glomerular filtration rate > 60.0 >60 Glomerula r Filtration Rate [place] ([facility]) blood urea nitrogen 17 mg/dL 7-18 Blood Urea Nitro gen [place] ([facility]) chloride level 105 mEq/L 98-107 Chloride Level [place] ([facility]) sodium level 140 mEq/L 136-145 Sodium Level [place] ([facility]) carbon dioxide level 32 mEq/L 21-32 Carbon Dioxide Level [place] ([facility]) potassium serum 4.5 mEq/L 3.5-5.1 Potassium Serum [place] ([facility]) calcium level 9.2 mg/dL 8.5-10.1 Calcium Level [place] ( [facility]) AST/SGOT 50 U/L 7-37 Above high normal AST/SGOT [place] ([facility]) anion gap 3 mEq/L 8-16 Below low normal Anion Gap [place] ( [facility]) bilirubin,total 0.8 mg/dL 0.2-1.0 Bilirubin,total [facility] ([facility]) ALT/SGPT 108 U/L 12-78 Above high normal ALT/SGPT [place] ([facility]) alkaline phosphatase 67 U/L 45-117 Alkaline Phosph atase [place] ([facility]) total protein 6.5 gm/dL 6.4-8.2 Total Protein [place] ( [facility]) albumin 3.7 gm/dL 3.2-5.2 Albumin [place] ([facility]) albumin/globulin ratio Albumin/globu dwain Ratio [place] ([facility]) ID Date Data Source [id number] 12/09/2020 11:07:00 AM EDT [place] ([facility]) Name Value Range Interpretation Code Description Data Keren rce(s) Supporting Document(s) erythrocyte sedimentation rate 5 mm/HR 0-15 Eryth rocyte Sedimentation Rate [place] ([facility]) ID Date Data Source [id number] 12/09/2020 11:07:00 AM EDT [place] ([facility]) Name Value Range Interpretation Code Description Data Keren rce(s) Supporting Document(s) white blood count 8.7 10 4.0-10.0 White Blood Count [place] ([facility]) red blood count 4.30 10 4.30-6.10 Red Blood Count [facility] ([facility]) hemoglobin 13.0 g/dL 13.5-17.5 Below low normal Hemoglobin [place] ( [facility]) hematocrit 40.2 % 42.0-52.0 Below low normal Hematocrit [place] ( [facility]) mean corpuscular volume 93.5 fL 80.0-96.0 Mean Corpusc ular Volume [place] ([facility]) mean corpuscular hemoglobin 30.2 pg 27.0-33.0 Mean Cor puscular Hemoglobin [place] ([facility]) mean corpuscular HGB conc 32.3 g/dL 32.0-36.5 Mean Corpu scular HGB Conc [place] ([facility]) red cell distribution width 12.9 % 11.5-14.5 Red Cell Distribution Width [place] ([facility]) platelet count, automated 254 10 150-450 Platelet C ount, Automated [place] ([facility]) neutrophils % 67.2 % 36.0-66.0 Above high normal Neutrophils % A [place] ([facility]) mono % 8.2 % 2.0-8.0 Above high normal [place] % [place] ([facility]) lymph % 20.0 % 24.0-44.0 Below low normal Lymph % [place] ( [facility]) eos % 0.9 % 0.0-3.0 Eos % [place] ([facility]) nucleated red blood cell % 0.0 % 0-0 Nucleated Red Blood Cell % [place] ([facility]) immature granulocyte % 2.8 % 0-3.0 Immature Gran ulocyte % [place] ([facility]) baso % 0.9 % 0.0-1.0 Baso % [place] ([facility]) lymph # 1.7 10 1.5-5.0 Lymph # [place] ([facility]) mono # 0.7 10 0.0-0.8 [place] # [place] ([facility]) eos # 0.1 10 0.0-0.5 Eos # [place] ([facility]) neutrophils # 5.8 10 1.5-8.5 Neutrophils # [place] ( [facility]) baso # 0.1 10 0.0-0.2 Baso # [place] ([facility]) ID Date Data Source [id number] 12/09/2020 11:07:00 AM EDT [place] ([facility]) Name Value Range Interpretation Code Description Data Keren rce(s) Supporting Document(s) glucose, fasting 100 mg/dL 70-100 Glucose, Fasting AT [facility]) blood urea nitrogen 17 mg/dL 7-18 Blood Urea Nitro gen [place] ([facility]) sodium level 140 mEq/L 136-145 Sodium Level [place] ([facility]) potassium serum 4.5 mEq/L 3.5-5.1 Potassium Serum ATHE NA ([facility]) glomerular filtration rate > 60.0 >60 Glomerula r Filtration Rate [place] ([facility]) creatinine for GFR 1.11 mg/dL 0.70-1.30 Creatinine for GF R [place] ([facility]) chloride level 105 mEq/L 98-107 Chloride Level [place] ([facility]) carbon dioxide level 32 mEq/L 21-32 Carbon Dioxide Level [place] ([facility]) anion gap 3 mEq/L 8-16 Below low normal Anion Gap [place] ( [facility]) AST/SGOT 50 U/L 7-37 Above high normal AST/SGOT [place] ([facility]) calcium level 9.2 mg/dL 8.5-10.1 Calcium Level [place] ( [facility]) ALT/SGPT 108 U/L 12-78 Above high normal ALT/SGPT [place] ([facility]) alkaline phosphatase 67 U/L 45-117 Alkaline Phosph atase [place] ([facility]) bilirubin,total 0.8 mg/dL 0.2-1.0 Bilirubin,total [place] NA ([facility]) total protein 6.5 gm/dL 6.4-8.2 Total Protein [place] ( [facility]) albumin 3.7 gm/dL 3.2-5.2 Albumin [place] ([facility]) albumin/globulin ratio Albumin/globu dwain Ratio [place] ([facility]) ID Date Data Source [id number] 12/09/2020 11:07:00 AM EDT [place] ([facility]) Name Value Range Interpretation Code Description Data Keren rce(s) Supporting Document(s) erythrocyte sedimentation rate 5 mm/HR 0-15 Eryth rocyte Sedimentation Rate [place] ([facility]) ID Date Data Source [id number] 12/09/2020 11:07[facility]00 [facility] Name Value Range Interpretation Code Description Data Keren rce(s) Supporting Document(s) white blood count 8.7 10 4.0-10.0 White Blood Count [place] ([facility]) red blood count 4.30 10 4.30-6.10 Red Blood Count [place] NA ([facility]) hemoglobin 13.0 g/dL 13.5-17.5 Below low normal Hemoglobin [place] ( [facility]) mean corpuscular volume 93.5 fL 80.0-96.0 Mean Corpusc ular Volume [place] ([facility]) hematocrit 40.2 % 42.0-52.0 Below low normal Hematocrit [place] ( [facility]) mean corpuscular hemoglobin 30.2 pg 27.0-33.0 Mean Cor puscular Hemoglobin [place] ([facility]) mean corpuscular HGB conc 32.3 g/dL 32.0-36.5 Mean Corpu scular HGB Conc [place] ([facility]) red cell distribution width 12.9 % 11.5-14.5 Red Cell Distribution Width [place] ([facility]) platelet count, automated 254 10 150-450 Platelet C ount, Automated [place] ([facility]) lymph % 20.0 % 24.0-44.0 Below low normal Lymph % [place] ( [facility]) neutrophils % 67.2 % 36.0-66.0 Above high normal Neutrophils % A [place] ([facility]) mono % 8.2 % 2.0-8.0 Above high normal [place] % [place] ([facility]) eos % 0.9 % 0.0-3.0 Eos % [place] ([facility]) baso % 0.9 % 0.0-1.0 Baso % [place] ([facility]) immature granulocyte % 2.8 % 0-3.0 Immature Gran ulocyte % [place] ([facility]) neutrophils # 5.8 10 1.5-8.5 [place] # [place] ( [facility]) lymph # 1.7 10 1.5-5.0 [place] # [place] ([facility]) nucleated red blood cell % 0.0 % 0-0 Nucleated Red Blood Cell % [place] ([facility]) mono # 0.7 10 0.0-0.8 [place] # [place] ([facility]) eos # 0.1 10 0.0-0.5 [place] # [place] ([facility]) baso # 0.1 10 0.0-0.2 [place] # [place] ([facility]) ID Date Data Source [id number] 12/09/2020 11:07:00 AM EDT [place] ([facility]) Name Value Range Interpretation Code Description Data Keren rce(s) Supporting Document(s) glucose, fasting 100 mg/dL 70-100 Glucose, Fasting AT [facility] ([facility]) glomerular filtration rate > 60.0 >60 Glomerula r Filtration Rate [place] ([facility]) creatinine for GFR 1.11 mg/dL 0.70-1.30 Creatinine for GF R [place] ([facility]) blood urea nitrogen 17 mg/dL 7-18 Blood Urea Nitro gen [place] ([facility]) chloride level 105 mEq/L 98-107 Chloride Level [place] ([facility]) potassium serum 4.5 mEq/L 3.5-5.1 Potassium Serum [facility] NA ([facility]) sodium level 140 mEq/L 136-145 Sodium Level [place] ([facility]) carbon dioxide level 32 mEq/L 21-32 Carbon Dioxide Level [place] ([facility]) AST/SGOT 50 U/L 7-37 Above high normal AST/SGOT [place] ([facility]) calcium level 9.2 mg/dL 8.5-10.1 Calcium Level [place] ( [facility]) anion gap 3 mEq/L 8-16 Below low normal Anion Gap [place] ( [facility]) ALT/SGPT 108 U/L 12-78 Above high normal ALT/SGPT [place] ([facility]) bilirubin,total 0.8 mg/dL 0.2-1.0 Bilirubin,total [facility] ([facility]) alkaline phosphatase 67 U/L 45-117 Alkaline Phosph atase [place] ([facility]) total protein 6.5 gm/dL 6.4-8.2 Total Protein [place] ( [facility]) albumin 3.7 gm/dL 3.2-5.2 Albumin [place] ([facility]) albumin/globulin ratio Albumin/globu dwain Ratio [place] ([facility]) ID Date Data Source [id number] 12/09/2020 11:07:00 AM EDT [place] ([facility]) Name Value Range Interpretation Code Description Data Keren rce(s) Supporting Document(s) erythrocyte sedimentation rate 5 mm/HR 0-15 Eryth rocyte Sedimentation Rate [place] ([facility]) ID Date Data Source [id number] 12/09/2020 11:07:00 AM EDT [place] ([facility]) Name Value Range Interpretation Code Description Data Keren rce(s) Supporting Document(s) red blood count 4.30 10 4.30-6.10 Red Blood Count [facility] NA ([facility]) white blood count 8.7 10 4.0-10.0 White Blood Count [place] ([facility]) hematocrit 40.2 % 42.0-52.0 Below low normal Hematocrit [place] ( [facility]) hemoglobin 13.0 g/dL 13.5-17.5 Below low normal Hemoglobin [place] ( [facility]) mean corpuscular volume 93.5 fL 80.0-96.0 Mean Corpusc ular Volume [place] ([facility]) mean corpuscular hemoglobin 30.2 pg 27.0-33.0 Mean Cor puscular Hemoglobin [place] ([facility]) mean corpuscular HGB conc 32.3 g/dL 32.0-36.5 Mean Corpu scular HGB Conc [place] ([facility]) red cell distribution width 12.9 % 11.5-14.5 Red Cell Distribution Width [place] ([facility]) platelet count, automated 254 10 150-450 Platelet C ount, Automated [place] ([facility]) neutrophils % 67.2 % 36.0-66.0 Above high normal Neutrophils % A [place] ([facility]) lymph % 20.0 % 24.0-44.0 Below low normal Lymph % [place] ( [facility]) baso % 0.9 % 0.0-1.0 Baso % [place] ([facility]) eos % 0.9 % 0.0-3.0 E[place] % [place] ([facility]) mono % 8.2 % 2.0-8.0 Above high normal [place] % [place] ([facility]) nucleated red blood cell % 0.0 % 0-0 Nucleated Red Blood Cell % [place] ([facility]) immature granulocyte % 2.8 % 0-3.0 Immature Gran ulocyte % [place] ([facility]) neutrophils # 5.8 10 1.5-8.5 [place] # [place] ( [facility]) lymph # 1.7 10 1.5-5.0 Lymph # [place] ([facility]) mono # 0.7 10 0.0-0.8 [place] # [place] ([facility]) baso # 0.1 10 0.0-0.2 [place] # [place] ([facility]) eos # 0.1 10 0.0-0.5 [place] # [place] ([facility]) ID Date Data Source [id number] 12/09/2020 11:07:00 AM EDT [place] ([facility]) Name Value Range Interpretation Code Description Data Keren rce(s) Supporting Document(s) glucose, fasting 100 mg/dL 70-100 Glucose, Fasting AT [facility]) blood urea nitrogen 17 mg/dL 7-18 Blood Urea Nitro gen [place] ([facility]) creatinine for GFR 1.11 mg/dL 0.70-1.30 Creatinine for GF R [place] ([facility]) sodium level 140 mEq/L 136-145 Sodium Level [place] ([facility]) glomerular filtration rate > 60.0 >60 Glomerula r Filtration Rate [place] ([facility]) potassium serum 4.5 mEq/L 3.5-5.1 Potassium Serum [place] NA ([facility]) chloride level 105 mEq/L 98-107 Chloride Level [place] ([facility]) anion gap 3 mEq/L 8-16 Below low normal Anion Gap [place] ( [facility]) carbon dioxide level 32 mEq/L 21-32 Carbon Dioxide Level [place] ([facility]) AST/SGOT 50 U/L 7-37 Above high normal AST/SGOT [place] ([facility]) calcium level 9.2 mg/dL 8.5-10.1 Calcium Level [place] ( [facility]) alkaline phosphatase 67 U/L 45-117 Alkaline Phosph atase [place] ([facility]) ALT/SGPT 108 U/L 12-78 Above high normal ALT/SGPT [place] ([facility]) total protein 6.5 gm/dL 6.4-8.2 Total Protein [place] ( [facility]) bilirubin,total 0.8 mg/dL 0.2-1.0 Bilirubin,total [place] NA ([facility]) albumin 3.7 gm/dL 3.2-5.2 Albumin [place] ([facility]) albumin/globulin ratio Albumin/globu dwain Ratio [place] ([facility]) ID Date Data Source [id number] 11/27/2020 03:22:00 PM EDT [email or web address] Name Value Range Interpretation Code Description Data Keren rce(s) Supporting Document(s) SARS coronavirus 2 RNA [Presence] in Res piratory specimen by MER with probe detection NEGATIVE [facility] This lab was ordered by [facility] a nd reported by [facility]. ID Date Data Source [id number] 09/15/2020 11:30:00 AM EST [place] ([facility]) Name Value Range Interpretation Code Description Data Keren rce(s) Supporting Document(s) Hemoglobin A1c/Hemoglobin.total in Blood 4.9 % Hemoglobin a1C [place] ([facility]) estimated average glucose 94 mg/dL 60-110 Estimated Average Glucose [place] ([facility]) ID Date Data Source [id number] 09/15/2020 11:30:00 AM EST [place] ([facility]) Name Value Range Interpretation Code Description Data Keren rce(s) Supporting Document(s) thyroid stimulating hormone 1.540 uIU/mL 0.358-3.740 Thyroid Stimulating Hormone [place] ([facility]) ID Date Data Source [id number] 09/15/2020 11:30:00 AM EST [place] ([facility]) Name Value Range Interpretation Code Description Data Keren rce(s) Supporting Document(s) glucose, fasting 112 mg/dL 70-100 Above high normal Glucose, Fas ting [place] ([facility]) blood urea nitrogen 19 mg/dL 7-18 Above high normal Blood Ure a Nitrogen [place] ([facility]) creatinine for GFR 1.18 mg/dL 0.70-1.30 Creatinine for GF R [place] ([facility]) glomerular filtration rate > 60.0 >60 Glomerula r Filtration Rate [place] ([facility]) sodium level 142 mEq/L 136-145 Sodium Level [place] ([facility]) potassium serum 4.1 mEq/L 3.5-5.1 Potassium Serum [place] NA ([facility]) carbon dioxide level 28 mEq/L 21-32 Carbon Dioxide Level [place] ([facility]) chloride level 104 mEq/L 98-107 Chloride Level [place] ([facility]) anion gap 10 mEq/L 8-16 Anion Gap [place] ([facility]) calcium level 9.9 mg/dL 8.5-10.1 Calcium Level [place] ( [facility]) AST/SGOT 14 U/L 7-37 AST/SGOT [place] ([facility]) ALT/SGPT 26 U/L 12-78 ALT/SGPT [place] ([facility]) alkaline phosphatase 72 U/L 45-117 Alkaline Phosph atase [place] ([facility]) bilirubin,total 0.9 mg/dL 0.2-1.0 Bilirubin,total [place] NA ([facility]) albumin/globulin ratio Albumin/globu dwain Ratio [place] ([facility]) total protein 7.2 gm/dL 6.4-8.2 Total Protein [place] ( [facility]) albumin 4.5 gm/dL 3.2-5.2 Albumin [place] ([facility]) ID Date Data Source [id number] 09/15/2020 11:30:00 AM EST [place] ([facility]) Name Value Range Interpretation Code Description Data Keren rce(s) Supporting Document(s) estimated average glucose 94 mg/dL 60-110 Estimated Average Glucose [place] ([facility]) Hemoglobin A1c/Hemoglobin.total in Blood 4.9 % Hemoglobin a1C [place] ([facility]) ID Date Data Source [id number] 09/15/2020 11:30:00 AM EST [place] ([facility]) Name Value Range Interpretation Code Description Data Keren rce(s) Supporting Document(s) thyroid stimulating hormone 1.540 uIU/mL 0.358-3.740 Thyroid Stimulating Hormone [place] ([facility]) ID Date Data Source [id number] 09/15/2020 11:30:00 AM EST [place] ([facility]) Name Value Range Interpretation Code Description Data Keren rce(s) Supporting Document(s) blood urea nitrogen 19 mg/dL 7-18 Above high normal Blood Ure a Nitrogen [place] ([facility]) creatinine for GFR 1.18 mg/dL 0.70-1.30 Creatinine for GF R [place] ([facility]) glucose, fasting 112 mg/dL 70-100 Above high normal Glucose, Fas ting [place] ([facility]) potassium serum 4.1 mEq/L 3.5-5.1 Potassium Serum [facility] ([facility]) glomerular filtration rate > 60.0 >60 Glomerula r Filtration Rate [place] ([facility]) sodium level 142 mEq/L 136-145 Sodium Level [place] ([facility]) carbon dioxide level 28 mEq/L 21-32 Carbon Dioxide Level [place] ([facility]) chloride level 104 mEq/L 98-107 Chloride Level [place] ([facility]) calcium level 9.9 mg/dL 8.5-10.1 Calcium Level [place] ( [facility]) ALT/SGPT 26 U/L 12-78 ALT/SGPT [place] ([facility]) AST/SGOT 14 U/L 7-37 AST/SGOT [place] ([facility]) anion gap 10 mEq/L 8-16 Anion Gap [place] ([facility]) albumin/globulin ratio Albumin/globu dwain Ratio [place] ([facility]) albumin 4.5 gm/dL 3.2-5.2 Albumin [place] ([facility]) bilirubin,total 0.9 mg/dL 0.2-1.0 Bilirubin,total [facility] NA ([facility]) total protein 7.2 gm/dL 6.4-8.2 Total Protein [place] ( [facility]) alkaline phosphatase 72 U/L 45-117 Alkaline Phosph atase [place] ([facility]) ID Date Data Source [id number] 09/15/2020 11:30:00 AM EST [place] ([facility]) Name Value Range Interpretation Code Description Data Keren rce(s) Supporting Document(s) estimated average glucose 94 mg/dL 60-110 Estimated Average Glucose [place] ([facility]) Hemoglobin A1c/Hemoglobin.total in Blood 4.9 % Hemoglobin a1C [place] ([facility]) ID Date Data Source [id number] 09/15/2020 11:30:00 AM EST [place] ([facility]) Name Value Range Interpretation Code Description Data Keren rce(s) Supporting Document(s) thyroid stimulating hormone 1.540 uIU/mL 0.358-3.740 Thyroid Stimulating Hormone [place] ([facility]) ID Date Data Source [id number] 09/15/2020 11:30:00 AM EST [place] ([facility]) Name Value Range Interpretation Code Description Data Keren rce(s) Supporting Document(s) glucose, fasting 112 mg/dL 70-100 Above high normal Glucose, Fas ting [place] ([facility]) blood urea nitrogen 19 mg/dL 7-18 Above high normal Blood Ure a Nitrogen [place] ([facility]) creatinine for GFR 1.18 mg/dL 0.70-1.30 Creatinine for GF R [place] ([facility]) glomerular filtration rate > 60.0 >60 Glomerula r Filtration Rate [place] ([facility]) carbon dioxide level 28 mEq/L 21-32 Carbon Dioxide Level [place] ([facility]) chloride level 104 mEq/L 98-107 Chloride Level [place] ([facility]) potassium serum 4.1 mEq/L 3.5-5.1 Potassium Serum [facility] NA ([facility]) sodium level 142 mEq/L 136-145 Sodium Level [place] ([facility]) calcium level 9.9 mg/dL 8.5-10.1 Calcium Level [place] ( [facility]) AST/SGOT 14 U/L 7-37 AST/SGOT [place] ([facility]) ALT/SGPT 26 U/L 12-78 ALT/SGPT [place] ([facility]) anion gap 10 mEq/L 8-16 Anion Gap [place] ([facility]) total protein 7.2 gm/dL 6.4-8.2 Total Protein [place] ( [facility]) albumin 4.5 gm/dL 3.2-5.2 Albumin [place] ([facility]) bilirubin,total 0.9 mg/dL 0.2-1.0 Bilirubin,total AT[facility] NA ([facility]) alkaline phosphatase 72 U/L 45-117 Alkaline Phosph atase [place] ([facility]) albumin/globulin ratio Albumin/globu dwain Ratio [place] ([facility]) ID Date Data Source [id number] 09/15/2020 11:30:00 AM EST [place] ([facility]) Name Value Range Interpretation Code Description Data Keren rce(s) Supporting Document(s) Hemoglobin A1c/Hemoglobin.total in Blood 4.9 % Hemoglobin a1C [place] ([facility]) estimated average glucose 94 mg/dL 60-110 Estimated Average Glucose [place] ([facility]) ID Date Data Source [id number] 09/15/2020 11:30:00 AM EST [place] ([facility]) Name Value Range Interpretation Code Description Data Keren rce(s) Supporting Document(s) thyroid stimulating hormone 1.540 uIU/mL 0.358-3.740 Thyroid Stimulating Hormone [place] ([facility]) ID Date Data Source [id number] 09/15/2020 11:30:00 AM EST [place] ([facility]) Name Value Range Interpretation Code Description Data Keren rce(s) Supporting Document(s) blood urea nitrogen 19 mg/dL 7-18 Above high normal Blood Ure a Nitrogen [place] ([facility]) glucose, fasting 112 mg/dL 70-100 Above high normal Glucose, Fas ting [place] ([facility]) sodium level 142 mEq/L 136-145 Sodium Level [facility] ([facility]) glomerular filtration rate > 60.0 >60 Glomerula r Filtration Rate [place] ([facility]) creatinine for GFR 1.18 mg/dL 0.70-1.30 Creatinine for GF R [place] ([facility]) potassium serum 4.1 mEq/L 3.5-5.1 Potassium Serum [facility] ([facility]) carbon dioxide level 28 mEq/L 21-32 Carbon Dioxide Level [place] ([facility]) anion gap 10 mEq/L 8-16 Anion Gap [place] ([facility]) chloride level 104 mEq/L 98-107 Chloride Level [place] ([facility]) calcium level 9.9 mg/dL 8.5-10.1 Calcium Level [place] ( [facility]) ALT/SGPT 26 U/L 12-78 ALT/SGPT [place] ([facility]) bilirubin,total 0.9 mg/dL 0.2-1.0 Bilirubin,total [place] ([facility]) AST/SGOT 14 U/L 7-37 AST/SGOT [place] ([facility]) alkaline phosphatase 72 U/L 45-117 Alkaline Phosph atase [place] ([facility]) albumin 4.5 gm/dL 3.2-5.2 Albumin [place] ([facility]) total protein 7.2 gm/dL 6.4-8.2 Total Protein [place] ( [facility]) albumin/globulin ratio Albumin/globu dwain Ratio [facility] ([facility]) ID Date Data Source [id number] 09/15/2020 11:30:00 AM EST [place] ([facility]) Name Value Range Interpretation Code Description Data Keren rce(s) Supporting Document(s) estimated average glucose 94 mg/dL 60-110 Estimated Average Glucose [place] ([facility]) Hemoglobin A1c/Hemoglobin.total in Blood 4.9 % Hemoglobin a1C [place] ([facility]) ID Date Data Source [id number] 09/15/2020 11:30:00 AM EST [place] ([facility]) Name Value Range Interpretation Code Description Data Keren rce(s) Supporting Document(s) thyroid stimulating hormone 1.540 uIU/mL 0.358-3.740 Thyroid Stimulating Hormone [place] ([facility]) ID Date Data Source [id number] 09/15/2020 11:30:00 AM EST [place] ([facility]) Name Value Range Interpretation Code Description Data Keren rce(s) Supporting Document(s) glucose, fasting 112 mg/dL 70-100 Above high normal Glucose, Fas ting [place] ([facility]) creatinine for GFR 1.18 mg/dL 0.70-1.30 Creatinine for GF R [place] ([facility]) blood urea nitrogen 19 mg/dL 7-18 Above high normal Blood Ure a Nitrogen [place] ([facility]) glomerular filtration rate > 60.0 >60 Glomerula r Filtration Rate [place] ([facility]) sodium level 142 mEq/L 136-145 Sodium Level [place] ([facility]) anion gap 10 mEq/L 8-16 Anion Gap [place] ([facility]) potassium serum 4.1 mEq/L 3.5-5.1 Potassium Serum ATHE NA ([facility]) carbon dioxide level 28 mEq/L 21-32 Carbon Dioxide Level [place] ([facility]) chloride level 104 mEq/L 98-107 Chloride Level [place] ([facility]) calcium level 9.9 mg/dL 8.5-10.1 Calcium Level [place] ( [facility]) AST/SGOT 14 U/L 7-37 AST/SGOT [place] ([facility]) ALT/SGPT 26 U/L 12-78 ALT/SGPT [place] ([facility]) bilirubin,total 0.9 mg/dL 0.2-1.0 Bilirubin,total [place] NA ([facility]) total protein 7.2 gm/dL 6.4-8.2 Total Protein [place] ( [facility]) alkaline phosphatase 72 U/L 45-117 Alkaline Phosph atase [place] ([facility]) albumin/globulin ratio Albumin/globu dwain Ratio [place] ([facility]) albumin 4.5 gm/dL 3.2-5.2 Albumin [place] ([facility]) ID Date Data Source [id number] 09/15/2020 11:30:00 AM EST [place] ([facility]) Name Value Range Interpretation Code Description Data Keren rce(s) Supporting Document(s) Hemoglobin A1c/Hemoglobin.total in Blood 4.9 % Hemoglobin a1C [place] ([facility]) estimated average glucose 94 mg/dL 60-110 Estimated Average Glucose [place] ([facility]) ID Date Data Source [id number] 09/15/2020 11:30:00 AM EST [place] ([facility]) Name Value Range Interpretation Code Description Data Keren rce(s) Supporting Document(s) thyroid stimulating hormone 1.540 uIU/mL 0.358-3.740 Thyroid Stimulating Hormone [place] ([facility]) ID Date Data Source [id number] 09/15/2020 11:30:00 AM EST [place] ([facility]) Name Value Range Interpretation Code Description Data Keren rce(s) Supporting Document(s) glucose, fasting 112 mg/dL 70-100 Above high normal Glucose, Fas ting [place] ([facility]) blood urea nitrogen 19 mg/dL 7-18 Above high normal Blood Ure a Nitrogen [place] ([facility]) sodium level 142 mEq/L 136-145 Sodium Level [place] ([facility]) creatinine for GFR 1.18 mg/dL 0.70-1.30 Creatinine for GF R [place] ([facility]) glomerular filtration rate > 60.0 >60 Glomerula r Filtration Rate [place] ([facility]) carbon dioxide level 28 mEq/L 21-32 Carbon Dioxide Level [place] ([facility]) chloride level 104 mEq/L 98-107 Chloride Level [place] ([facility]) potassium serum 4.1 mEq/L 3.5-5.1 Potassium Serum [place] ([facility]) anion gap 10 mEq/L 8-16 Anion Gap [place] ([facility]) ALT/SGPT 26 U/L 12-78 ALT/SGPT [place] ([facility]) alkaline phosphatase 72 U/L 45-117 Alkaline Phosph atase [place] ([facility]) calcium level 9.9 mg/dL 8.5-10.1 Calcium Level [place] ( [facility]) AST/SGOT 14 U/L 7-37 AST/SGOT [place] ([facility]) bilirubin,total 0.9 mg/dL 0.2-1.0 Bilirubin,total [place] ([facility]) albumin 4.5 gm/dL 3.2-5.2 Albumin [place] ([facility]) total protein 7.2 gm/dL 6.4-8.2 Total Protein [place] ( [facility]) albumin/globulin ratio Albumin/globu dwain Ratio [place] ([facility]) ID Date Data Source [id number] 09/15/2020 11:30:00 AM EST [place] ([facility]) Name Value Range Interpretation Code Description Data Keren rce(s) Supporting Document(s) Hemoglobin A1c/Hemoglobin.total in Blood 4.9 % Hemoglobin a1C [place] ([facility]) estimated average glucose 94 mg/dL 60-110 Estimated Average Glucose [place] ([facility]) ID Date Data Source [id number] 09/15/2020 11:30:00 AM EST [place] ([facility]) Name Value Range Interpretation Code Description Data Keren rce(s) Supporting Document(s) thyroid stimulating hormone 1.540 uIU/mL 0.358-3.740 Thyroid Stimulating Hormone [place] ([facility]) ID Date Data Source [id number] 09/15/2020 11:30:00 AM EST [place] ([facility]) Name Value Range Interpretation Code Description Data Keren rce(s) Supporting Document(s) glucose, fasting 112 mg/dL 70-100 Above high normal Glucose, Fas ting [place] ([facility]) blood urea nitrogen 19 mg/dL 7-18 Above high normal Blood Ure a Nitrogen [place] ([facility]) creatinine for GFR 1.18 mg/dL 0.70-1.30 Creatinine for GF R [place] ([facility]) potassium serum 4.1 mEq/L 3.5-5.1 Potassium Serum [place] NA ([facility]) sodium level 142 mEq/L 136-145 Sodium Level [facility] ([facility] glomerular filtration rate > 60.0 >60 Glomerula r Filtration Rate [place] ([facility]) carbon dioxide level 28 mEq/L 21-32 Carbon Dioxide Level [place] ([facility]) chloride level 104 mEq/L 98-107 Chloride Level [facility] ([facility]) anion gap 10 mEq/L 8-16 Anion Gap [facility] ([facility]) ALT/SGPT 26 U/L 12-78 ALT/SGPT [place] ([facility]) calcium level 9.9 mg/dL 8.5-10.1 Calcium Level [place] ( [facility]) AST/SGOT 14 U/L 7-37 AST/SGOT [place] ([facility]) total protein 7.2 gm/dL 6.4-8.2 Total Protein [place] ( [facility]) bilirubin,total 0.9 mg/dL 0.2-1.0 Bilirubin,total [facility] ([facility]) alkaline phosphatase 72 U/L 45-117 Alkaline Phosph atase [place] ([facility]) albumin 4.5 gm/dL 3.2-5.2 Albumin [place] ([facility]) albumin/globulin ratio Albumin/globu dwain Ratio [facility] ([facility]) ID Date Data Source [id number] 09/15/2020 11:30:00 AM EST [place] ([facility]) Name Value Range Interpretation Code Description Data Keren rce(s) Supporting Document(s) estimated average glucose 94 mg/dL 60-110 Estimated Average Glucose [place] ([facility]) Hemoglobin A1c/Hemoglobin.total in Blood 4.9 % Hemoglobin a1C [place] ([facility]) ID Date Data Source [id number] 09/15/2020 11:30:00 AM EST [place] ([facility]) Name Value Range Interpretation Code Description Data Keren rce(s) Supporting Document(s) thyroid stimulating hormone 1.540 uIU/mL 0.358-3.740 Thyroid Stimulating Hormone [place] ([facility]) ID Date Data Source [id number] 09/15/2020 11:30:00 AM EST [place] ([facility]) Name Value Range Interpretation Code Description Data Keren rce(s) Supporting Document(s) glucose, fasting 112 mg/dL 70-100 Above high normal Glucose, Fas ting [place] ([facility]) creatinine for GFR 1.18 mg/dL 0.70-1.30 Creatinine for GF R [place] ([facility]) blood urea nitrogen 19 mg/dL 7-18 Above high normal Blood Ure a Nitrogen [place] ([facility]) potassium serum 4.1 mEq/L 3.5-5.1 Potassium Serum [facility] NA ([facility]) glomerular filtration rate > 60.0 >60 Glomerula r Filtration Rate [place] ([facility]) sodium level 142 mEq/L 136-145 Sodium Level [place] ([facility]) chloride level 104 mEq/L 98-107 Chloride Level [place] ([facility]) carbon dioxide level 28 mEq/L 21-32 Carbon Dioxide Level [place] ([facility]) calcium level 9.9 mg/dL 8.5-10.1 Calcium Level [place] ( [facility]) anion gap 10 mEq/L 8-16 Anion Gap [place] ([facility]) ALT/SGPT 26 U/L 12-78 ALT/SGPT [place] ([facility]) AST/SGOT 14 U/L 7-37 AST/SGOT [place] ([facility]) albumin 4.5 gm/dL 3.2-5.2 Albumin [place] ([facility]) bilirubin,total 0.9 mg/dL 0.2-1.0 Bilirubin,total [place] NA ([facility]) total protein 7.2 gm/dL 6.4-8.2 Total Protein [place] ( [facility]) alkaline phosphatase 72 U/L 45-117 Alkaline Phosph atase [place] ([facility]) albumin/globulin ratio Albumin/globu dwain Ratio [place] ([facility]) ID Date Data Source [id number] 09/15/2020 11:30:00 AM EST [place] ([facility]) Name Value Range Interpretation Code Description Data Keren rce(s) Supporting Document(s) estimated average glucose 94 mg/dL 60-110 Estimated Average Glucose [place] ([facility]) Hemoglobin A1c/Hemoglobin.total in Blood 4.9 % Hemoglobin a1C [place] ([facility]) ID Date Data Source [id number] 09/15/2020 11:30:00 AM EST [place] ([facility]) Name Value Range Interpretation Code Description Data Keren rce(s) Supporting Document(s) thyroid stimulating hormone 1.540 uIU/mL 0.358-3.740 Thyroid Stimulating Hormone [place] ([facility]) ID Date Data Source [id number] 09/15/2020 11:30:00 AM EST [place] ([facility]) Name Value Range Interpretation Code Description Data Keren rce(s) Supporting Document(s) glucose, fasting 112 mg/dL 70-100 Above high normal Glucose, Fas ting [place] ([facility]) blood urea nitrogen 19 mg/dL 7-18 Above high normal Blood Ure a Nitrogen [place] ([facility]) glomerular filtration rate > 60.0 >60 Glomerula r Filtration Rate [place] ([facility]) sodium level 142 mEq/L 136-145 Sodium Level [place] ([facility]) creatinine for GFR 1.18 mg/dL 0.70-1.30 Creatinine for GF R [place] ([facility]) anion gap 10 mEq/L 8-16 Anion Gap [place] ([facility]) chloride level 104 mEq/L 98-107 Chloride Level [place] ([facility]) potassium serum 4.1 mEq/L 3.5-5.1 Potassium Serum [facility] NA ([facility]) carbon dioxide level 28 mEq/L 21-32 Carbon Dioxide Level [place] ([facility]) alkaline phosphatase 72 U/L 45-117 Alkaline Phosph atase [place] ([facility]) bilirubin,total 0.9 mg/dL 0.2-1.0 Bilirubin,total [place] ([facility]) ALT/SGPT 26 U/L 12-78 ALT/SGPT [place] ([facility]) AST/SGOT 14 U/L 7-37 AST/SGOT [place] ([facility]) calcium level 9.9 mg/dL 8.5-10.1 Calcium Level [place] ( [facility]) albumin/globulin ratio Albumin/globu dwain Ratio [place] ([facility]) albumin 4.5 gm/dL 3.2-5.2 Albumin [place] ([facility]) total protein 7.2 gm/dL 6.4-8.2 Total Protein [place] ( [facility]) ID Date Data Source [id number] 09/15/2020 11:30:00 AM EST [place] ([facility]) Name Value Range Interpretation Code Description Data Keren rce(s) Supporting Document(s) Hemoglobin A1c/Hemoglobin.total in Blood 4.9 % Hemoglobin a1C [place] ([facility]) estimated average glucose 94 mg/dL 60-110 Estimated Average Glucose [place] ([facility]) ID Date Data Source [id number] 09/15/2020 11:30:00 AM EST [place] ([facility]) Name Value Range Interpretation Code Description Data Keren rce(s) Supporting Document(s) thyroid stimulating hormone 1.540 uIU/mL 0.358-3.740 Thyroid Stimulating Hormone [place] ([facility]) ID Date Data Source [id number] 09/15/2020 11:30:00 AM EST [place] ([facility]) Name Value Range Interpretation Code Description Data Keren rce(s) Supporting Document(s) glucose, fasting 112 mg/dL 70-100 Above high normal Glucose, Fas ting [place] ([facility]) blood urea nitrogen 19 mg/dL 7-18 Above high normal Blood Ure a Nitrogen [place] ([facility]) creatinine for GFR 1.18 mg/dL 0.70-1.30 Creatinine for GF R [place] ([facility]) sodium level 142 mEq/L 136-145 Sodium Level [place] ([facility]) glomerular filtration rate > 60.0 >60 Glomerula r Filtration Rate [place] ([facility]) carbon dioxide level 28 mEq/L 21-32 Carbon Dioxide Level [place] ([facility]) calcium level 9.9 mg/dL 8.5-10.1 Calcium Level [place] ( [facility]) chloride level 104 mEq/L 98-107 Chloride Level [place] ([facility]) anion gap 10 mEq/L 8-16 Anion Gap [place] ([facility]) potassium serum 4.1 mEq/L 3.5-5.1 Potassium Serum [place] NA ([facility]) ALT/SGPT 26 U/L 12-78 ALT/SGPT [place] ([facility]) alkaline phosphatase 72 U/L 45-117 Alkaline Phosph atase [place] ([facility]) bilirubin,total 0.9 mg/dL 0.2-1.0 Bilirubin,total [place] NA ([facility]) AST/SGOT 14 U/L 7-37 AST/SGOT [place] ([facility]) total protein 7.2 gm/dL 6.4-8.2 Total Protein [place] ( [facility]) albumin/globulin ratio Albumin/globu dwain Ratio [place] ([facility]) albumin 4.5 gm/dL 3.2-5.2 Albumin [place] ([facility]) ID Date Data Source [id number] 09/15/2020 11:30:00 AM EST [place] ([facility]) Name Value Range Interpretation Code Description Data Keren rce(s) Supporting Document(s) Hemoglobin A1c/Hemoglobin.total in Blood 4.9 % Hemoglobin a1C [place] ([facility]) estimated average glucose 94 mg/dL 60-110 Estimated Average Glucose [place] ([facility]) ID Date Data Source [id number] 09/15/2020 11:30:00 AM EST [place] ([facility]) Name Value Range Interpretation Code Description Data Keren rce(s) Supporting Document(s) thyroid stimulating hormone 1.540 uIU/mL 0.358-3.740 Thyroid Stimulating Hormone [place] ([facility]) ID Date Data Source [id number] 09/15/2020 11:30:00 AM EST [place] ([facility]) Name Value Range Interpretation Code Description Data Keren rce(s) Supporting Document(s) glucose, fasting 112 mg/dL 70-100 Above high normal Glucose, Fas ting [place] ([facility]) blood urea nitrogen 19 mg/dL 7-18 Above high normal Blood Ure a Nitrogen [place] ([facility]) sodium level 142 mEq/L 136-145 Sodium Level [place] ([facility]) creatinine for GFR 1.18 mg/dL 0.70-1.30 Creatinine for GF R [place] ([facility]) potassium serum 4.1 mEq/L 3.5-5.1 Potassium Serum [place] NA ([facility]) glomerular filtration rate > 60.0 >60 Glomerula r Filtration Rate [place] ([facility]) chloride level 104 mEq/L 98-107 Chloride Level [place] ([facility]) calcium level 9.9 mg/dL 8.5-10.1 Calcium Level [place] ( [facility]) carbon dioxide level 28 mEq/L 21-32 Carbon Dioxide Level [place] ([facility]) anion gap 10 mEq/L 8-16 Anion Gap [place] ([facility]) ALT/SGPT 26 U/L 12-78 ALT/SGPT [place] ([facility]) AST/SGOT 14 U/L 7-37 AST/SGOT [place] ([facility]) alkaline phosphatase 72 U/L 45-117 Alkaline Phosph atase [place] ([facility]) bilirubin,total 0.9 mg/dL 0.2-1.0 Bilirubin,total [place] ([facility]) total protein 7.2 gm/dL 6.4-8.2 Total Protein [place] ( [facility]) albumin 4.5 gm/dL 3.2-5.2 Albumin [place] ([facility]) albumin/globulin ratio Albumin/globu dwain Ratio [place] ([facility]) ID Date Data Source [id number] 09/15/2020 11:30:00 AM EST [place] ([facility]) Name Value Range Interpretation Code Description Data Keren rce(s) Supporting Document(s) Hemoglobin A1c/Hemoglobin.total in Blood 4.9 % Hemoglobin a1C [place] ([facility]) estimated average glucose 94 mg/dL 60-110 Estimated Average Glucose [place] ([facility]) ID Date Data Source [id number] 09/15/2020 11:30:00 AM EST [place] ([facility]) Name Value Range Interpretation Code Description Data Keren rce(s) Supporting Document(s) thyroid stimulating hormone 1.540 uIU/mL 0.358-3.740 Thyroid Stimulating Hormone [place] ([facility]) ID Date Data Source [id number] 09/15/2020 11:30:00 AM EST [place] ([facility]) Name Value Range Interpretation Code Description Data Keren rce(s) Supporting Document(s) glucose, fasting 112 mg/dL 70-100 Above high normal Glucose, Fas ting [place] ([facility]) creatinine for GFR 1.18 mg/dL 0.70-1.30 Creatinine for GF R [place] ([facility]) blood urea nitrogen 19 mg/dL 7-18 Above high normal Blood Ure a Nitrogen [place] ([facility]) glomerular filtration rate > 60.0 >60 Glomerula r Filtration Rate [place] ([facility]) potassium serum 4.1 mEq/L 3.5-5.1 Potassium Serum [place] NA ([facility]) sodium level 142 mEq/L 136-145 Sodium Level [place] ([facility]) carbon dioxide level 28 mEq/L 21-32 Carbon Dioxide Level [place] ([facility]) chloride level 104 mEq/L 98-107 Chloride Level [place] ([facility]) ALT/SGPT 26 U/L 12-78 ALT/SGPT [place] ([facility]) calcium level 9.9 mg/dL 8.5-10.1 Calcium Level [place] ( [facility]) anion gap 10 mEq/L 8-16 Anion Gap [place] ([facility]) AST/SGOT 14 U/L 7-37 AST/SGOT [place] ([facility]) alkaline phosphatase 72 U/L 45-117 Alkaline Phosph atase [place] ([facility]) albumin/globulin ratio Albumin/globu dwain Ratio [place] ([facility]) albumin 4.5 gm/dL 3.2-5.2 Albumin [place] ([facility]) bilirubin,total 0.9 mg/dL 0.2-1.0 Bilirubin,total [place] ([facility]) total protein 7.2 gm/dL 6.4-8.2 Total Protein [place] ( [facility]) ID Date Data Source [id number] 09/15/2020 11:30:00 AM EST [place] ([facility]) Name Value Range Interpretation Code Description Data Keren rce(s) Supporting Document(s) Hemoglobin A1c/Hemoglobin.total in Blood 4.9 % Hemoglobin a1C [place] ([facility]) estimated average glucose 94 mg/dL 60-110 Estimated Average Glucose [place] ([facility]) ID Date Data Source [id number] 09/15/2020 11:30:00 AM EST [place] ([facility]) Name Value Range Interpretation Code Description Data Keren rce(s) Supporting Document(s) thyroid stimulating hormone 1.540 uIU/mL 0.358-3.740 Thyroid Stimulating Hormone [place] ([facility]) ID Date Data Source [id number] 09/15/2020 11:30:00 AM EST [place] ([facility]) Name Value Range Interpretation Code Description Data Keren rce(s) Supporting Document(s) glucose, fasting 112 mg/dL 70-100 Above high normal Glucose, Fas ting [place] ([facility]) glomerular filtration rate > 60.0 >60 Glomerula r Filtration Rate [place] ([facility]) creatinine for GFR 1.18 mg/dL 0.70-1.30 Creatinine for GF R [place] ([facility]) blood urea nitrogen 19 mg/dL 7-18 Above high normal Blood Ure a Nitrogen [place] ([facility]) sodium level 142 mEq/L 136-145 Sodium Level [place] ([facility]) anion gap 10 mEq/L 8-16 Anion Gap [place] ([facility]) potassium serum 4.1 mEq/L 3.5-5.1 Potassium Serum [place] NA ([facility]) carbon dioxide level 28 mEq/L 21-32 Carbon Dioxide Level [place] ([facility]) chloride level 104 mEq/L 98-107 Chloride Level [place] ([facility]) ALT/SGPT 26 U/L 12-78 ALT/SGPT [place] ([facility]) alkaline phosphatase 72 U/L 45-117 Alkaline Phosph atase [place] ([facility]) calcium level 9.9 mg/dL 8.5-10.1 Calcium Level [place] ( [facility]) AST/SGOT 14 U/L 7-37 AST/SGOT [place] ([facility]) albumin 4.5 gm/dL 3.2-5.2 Albumin [place] ([facility]) bilirubin,total 0.9 mg/dL 0.2-1.0 Bilirubin,total [place] ([facility]) total protein 7.2 gm/dL 6.4-8.2 Total Protein [place] ( [facility]) albumin/globulin ratio Albumin/globu dwain Ratio [place] ([facility]) ID Date Data Source [id number] 09/15/2020 11:30:00 AM EST [place] ([facility]) Name Value Range Interpretation Code Description Data Keren rce(s) Supporting Document(s) estimated average glucose 94 mg/dL 60-110 Estimated Average Glucose [place] ([facility]) Hemoglobin A1c/Hemoglobin.total in Blood 4.9 % Hemoglobin a1C [place] ([facility]) ID Date Data Source [id number] 09/15/2020 11:30:00 AM EST [place] ([facility]) Name Value Range Interpretation Code Description Data Keren rce(s) Supporting Document(s) thyroid stimulating hormone 1.540 uIU/mL 0.358-3.740 Thyroid Stimulating Hormone [place] ([facility]) ID Date Data Source [id number] 09/15/2020 11:30:00 AM EST [place] ([facility]) Name Value Range Interpretation Code Description Data Keren rce(s) Supporting Document(s) blood urea nitrogen 19 mg/dL 7-18 Above high normal Blood Ure a Nitrogen [place] ([facility]) creatinine for GFR 1.18 mg/dL 0.70-1.30 Creatinine for GF R [place] ([facility]) glucose, fasting 112 mg/dL 70-100 Above high normal Glucose, Fas ting [place] ([facility]) potassium serum 4.1 mEq/L 3.5-5.1 Potassium Serum ATHE NA ([facility]) sodium level 142 mEq/L 136-145 Sodium Level CHARLENE ([facility]) chloride level 104 mEq/L 98-107 Chloride Level CHARLENE ([facility]) glomerular filtration rate > 60.0 >60 Glomerula r Filtration Rate CHARLENE ([facility]) ALT/SGPT 26 U/L 12-78 ALT/SGPT CHARLENE ([facility]) AST/SGOT 14 U/L 7-37 AST/SGOT CHARLENE ([facility]) carbon dioxide level 28 mEq/L 21-32 Carbon Dioxide Level CHARLENE ([facility]) anion gap 10 mEq/L 8-16 Anion Gap CHARLENE ([facility]) calcium level 9.9 mg/dL 8.5-10.1 Calcium Level CHARLENE ( [facility]) total protein 7.2 gm/dL 6.4-8.2 Total Protein CHARLENE ( [facility]) bilirubin,total 0.9 mg/dL 0.2-1.0 Bilirubin,total ATHE NA ([facility]) albumin 4.5 gm/dL 3.2-5.2 Albumin CHARLENE ([facility]) albumin/globulin ratio Albumin/globu dwain Ratio CHARLENE ([facility]) alkaline phosphatase 72 U/L 45-117 Alkaline Phosph atase CHARLENE ([facility]) ID Date Data Source [id number] 09/15/2020 11:30:00 AM EST CHARLENE ([facility]) Name Value Range Interpretation Code Description Data Keren rce(s) Supporting Document(s) Hemoglobin A1c/Hemoglobin.total in Blood 4.9 % Hemoglobin a1C CHARLENE ([facility]) estimated average glucose 94 mg/dL 60-110 Estimated Average Glucose CHARLENE ([facility]) ID Date Data Source [id number] 09/15/2020 11:30:00 AM EST CHARLENE ([facility]) Name Value Range Interpretation Code Description Data Keren rce(s) Supporting Document(s) thyroid stimulating hormone 1.540 uIU/mL 0.358-3.740 Thyroid Stimulating Hormone CHARLENE ([facility]) ID Date Data Source [id number] 09/15/2020 11:30:00 AM EST CHARLENE ([facility]) Name Value Range Interpretation Code Description Data Keren rce(s) Supporting Document(s) glucose, fasting 112 mg/dL 70-100 Above high normal Glucose, Fas ting CHARLENE ([facility]) creatinine for GFR 1.18 mg/dL 0.70-1.30 Creatinine for GF R CHARLENE ([facility]) blood urea nitrogen 19 mg/dL 7-18 Above high normal Blood Ure a Nitrogen CHARLENE ([facility]) glomerular filtration rate > 60.0 >60 Glomerula r Filtration Rate CHARLENE ([facility]) carbon dioxide level 28 mEq/L 21-32 Carbon Dioxide Level CHARLENE ([facility]) potassium serum 4.1 mEq/L 3.5-5.1 Potassium Serum ATHE NA ([facility]) chloride level 104 mEq/L 98-107 Chloride Level CHARLENE ([facility]) sodium level 142 mEq/L 136-145 Sodium Level CHARLENE ([facility]) calcium level 9.9 mg/dL 8.5-10.1 Calcium Level CHARLENE ( [facility]) AST/SGOT 14 U/L 7-37 AST/SGOT CHARLENE ([facility]) ALT/SGPT 26 U/L 12-78 ALT/SGPT CHARLENE ([facility]) anion gap 10 mEq/L 8-16 Anion Gap CHARLENE ([facility]) alkaline phosphatase 72 U/L 45-117 Alkaline Phosph atase CHARLENE ([facility]) albumin 4.5 gm/dL 3.2-5.2 Albumin CHARLENE ([facility]) bilirubin,total 0.9 mg/dL 0.2-1.0 Bilirubin,total ATHE NA ([facility]) total protein 7.2 gm/dL 6.4-8.2 Total Protein CHARLENE ( [facility]) albumin/globulin ratio Albumin/globu dwain Ratio CHARLENE ([facility]) ID Date Data Source [id number] 05/26/2020 12:00:00 AM EDT [facility] Name Value Range Interpretation Code Description Data Keren rce(s) Supporting Document(s) SARS-CoV2 Rapid Antigen [facility] This lab was ordered by [facility] and reported by [facility]. Procedure Social History Code Duration Value Status Description Data Source(s ) Smoking 03/23/2021 12:00:00 AM EDT Current Smoker completed Curre nt Smoker eCW1 ([facility]) Smoking 03/23/2021 12:00:00 AM EDT Current Smoker completed Curre nt Smoker eCW1 ([facility]) Smoking 02/23/2021 12:00:00 AM EDT Current Smoker completed Curre nt Smoker eCW1 ([facility]) Smoking 01/12/2021 12:00:00 AM EDT Current Smoker completed Curre nt Smoker eCW1 ([facility]) Smoking 11/24/2020 12:00:00 AM EDT Current Smoker completed Curre nt Smoker eCW1 ([facility]) Smoking 06/30/2020 12:00:00 AM EST Current Smoker completed Curre nt Smoker eCW1 ([facility]) Vital Signs ID Date Data Source [id number] Name Value Range Interpretation Code Description Data Source(s) Body height 72 [in_i] 72 [in_i] CHARLENE ([facility]) Body weight 2451.2 [oz_av] 2451.2 [oz_av] ATHEN A ([facility]) Body height 72 [in_i] 72 [in_i] CHARLENE ([facility]) Body mass index (BMI) [Ratio] 20.8 kg/m2 20.8 k g/m2 CHARLENE ([facility]) Body height 72 [in_i] 72 [in_i] CHARLENE ([facility]) Body mass index (BMI) [Ratio] 20.8 kg/m2 20.8 k g/m2 CHARLENE ([facility]) Body weight 2451.2 [oz_av] 2451.2 [oz_av] ATHEN A ([facility]) Diastolic blood pressure 79 mm[Hg] 79 mm[Hg] CHARLENE ([facility]) Body mass index (BMI) [Ratio] 19.8 kg/m2 19.8 k g/m2 CHARLENE ([facility]) Systolic blood pressure 114 mm[Hg] 114 mm[Hg] A THENA ([facility]) Body height 72 [in_i] 72 [in_i] CHARLENE ([facility]) Body weight 2336 [oz_av] 2336 [oz_av] CHARLENE ([facility]) Diastolic blood pressure 79 mm[Hg] 79 mm[Hg] CHARLENE ([facility]) Body height 72 [in_i] 72 [in_i] CHARLENE ([facility]) Body mass index (BMI) [Ratio] 19.8 kg/m2 19.8 k g/m2 CHARLENE ([facility]) Systolic blood pressure 114 mm[Hg] 114 mm[Hg] A THENA ([facility]) Body weight 2336 [oz_av] 2336 [oz_av] CHARLENE ([facility]) Diastolic blood pressure 79 mm[Hg] 79 mm[Hg] CHARLENE ([facility]) Body height 72 [in_i] 72 [in_i] CHARLENE ([facility]) Body mass index (BMI) [Ratio] 19.8 kg/m2 19.8 k g/m2 CHARLENE ([facility]) Systolic blood pressure 114 mm[Hg] 114 mm[Hg] A THENA ([facility]) Body weight 2336 [oz_av] 2336 [oz_av] CHARLENE ([facility]) Systolic blood pressure 102 mm[Hg] 102 mm[Hg] e CW1 ([facility]) Diastolic blood pressure 62 mm[Hg] 62 mm[Hg] eCW1 ([facility]) Body weight 155 [lb_av] 155 [lb_av] eCW1 ([facility]) Body weight 70.31 kg 70.31 kg eCW1 ([facility]) Body height [in_i] eCW1 ([facility]) Body mass index (BMI) [Ratio] 21.02 kg/m2 21.02 kg/m2 eCW1 ([facility]) Heart rate 83 /min 83 /min eCW1 ([facility]) Respiratory rate 17 /min 17 /min eCW1 ([facility]) Body temperature 98.7 [degF] 98.7 [degF] eCW1 ( [facility]) Body height 72 [in_i] 72 [in_i] CHARLENE ([facility]) Body height 72 [in_i] 72 [in_i] CHARLENE ([facility]) Body height 72 [in_i] 72 [in_i] CHARLENE ([facility]) Body height 72 [in_i] 72 [in_i] CHARLENE ([facility]) Body height 72 [in_i] 72 [in_i] CHARLENE ([facility]) Body weight 155.2 [lb_av] 155.2 [lb_av] eCW1 ([facility]) Body height [in_i] eCW1 ([facility]) Body mass index (BMI) [Ratio] 21.05 kg/m2 21.05 kg/m2 eCW1 ([facility]) Heart rate 60 /min 60 /min eCW1 ([facility]) Respiratory rate 18 /min 18 /min eCW1 ([facility]) Body temperature 98.1 [degF] 98.1 [degF] eCW1 ( [facility]) Systolic blood pressure 129 mm[Hg] 129 mm[Hg] e CW1 ([facility]) Diastolic blood pressure 75 mm[Hg] 75 mm[Hg] eCW1 ([facility]) Body weight 155 [lb_av] 155 [lb_av] eCW1 ([facility]) Body height [in_i] eCW1 ([facility]) Body mass index (BMI) [Ratio] 21.02 kg/m2 21.02 kg/m2 eCW1 ([facility]) Heart rate 72 /min 72 /min eCW1 ([facility]) Body temperature 98.3 [degF] 98.3 [degF] eCW1 ( [facility]) Systolic blood pressure 149 mm[Hg] 149 mm[Hg] e CW1 ([facility]) Diastolic blood pressure 78 mm[Hg] 78 mm[Hg] eCW1 ([facility]) Diastolic blood pressure 73 mm[Hg] 73 mm[Hg] CHARLENE ([facility]) Body height 72 [in_i] 72 [in_i] CHARLENE ([facility]) Body mass index (BMI) [Ratio] 21.7 kg/m2 21.7 k g/m2 CHARLENE ([facility]) Systolic blood pressure 116 mm[Hg] 116 mm[Hg] A [facility] ([facility]) Body weight 2562 [oz_av] 2562 [oz_av] CHARLENE ([facility]) Diastolic blood pressure 73 mm[Hg] 73 mm[Hg] CHARLENE ([facility]) Body height 72 [in_i] 72 [in_i] CHARLENE ([facility]) Body mass index (BMI) [Ratio] 21.7 kg/m2 21.7 k g/m2 CHARLENE ([facility]) Systolic blood pressure 116 mm[Hg] 116 mm[Hg] A [facility] ([facility]) Body weight 2562 [oz_av] 2562 [oz_av] CHARLENE ([facility]) Diastolic blood pressure 73 mm[Hg] 73 mm[Hg] CHARLENE ([facility]) Body height 72 [in_i] 72 [in_i] CHARLENE ([facility]) Body mass index (BMI) [Ratio] 21.7 kg/m2 21.7 k g/m2 CHARLENE ([facility]) Systolic blood pressure 116 mm[Hg] 116 mm[Hg] A THENA ([facility]) Body weight 2562 [oz_av] 2562 [oz_av] CHARLENE ([facility]) Systolic blood pressure 116 mm[Hg] 116 mm[Hg] A THENA ([facility]) Body weight 2562 [oz_av] 2562 [oz_av] CHARLENE ([facility]) Diastolic blood pressure 73 mm[Hg] 73 mm[Hg] CHARLENE ([facility]) Body height 72 [in_i] 72 [in_i] CHARLENE ([facility]) Body mass index (BMI) [Ratio] 21.7 kg/m2 21.7 k g/m2 CHARLENE ([facility]) Diastolic blood pressure 73 mm[Hg] 73 mm[Hg] CHARLENE ([facility]) Body height 72 [in_i] 72 [in_i] CHARLENE ([facility]) Body mass index (BMI) [Ratio] 21.7 kg/m2 21.7 k g/m2 CHARLENE ([facility]) Systolic blood pressure 116 mm[Hg] 116 mm[Hg] A THENA ([facility]) Body weight 2562 [oz_av] 2562 [oz_av] CHARLENE ([facility]) Diastolic blood pressure 73 mm[Hg] 73 mm[Hg] CHARLENE ([facility]) Body height 72 [in_i] 72 [in_i] CHARLENE ([facility]) Body mass index (BMI) [Ratio] 21.7 kg/m2 21.7 k g/m2 CHARLENE ([facility]) Systolic blood pressure 116 mm[Hg] 116 mm[Hg] A THENA ([facility]) Body weight 2562 [oz_av] 2562 [oz_av] CHARLENE ([facility]) Body mass index (BMI) [Ratio] 21.7 kg/m2 21.7 k g/m2 MEDENT ([facility]) Body weight 160.00 [lb_av] 160.00 [lb_av] MEDEN T ([facility]) Body temperature 98.2 [degF] 98.2 [degF] MEDENT ([facility]) Body height 72 [in_i] 72 [in_i] MEDENT ([facility]) 6'0" Body height 72 [in_i] 72 [in_i] CHARLENE ([facility]) Body height 72 [in_i] 72 [in_i] CHARLENE ([facility]) Body height 72 [in_i] 72 [in_i] CHARLENE ([facility]) Body height 72 [in_i] 72 [in_i] CHARLENE ([facility]) Body height 72 [in_i] 72 [in_i] CHARLENE ([facility]) Body height 72 [in_i] 72 [in_i] CHARLENE ([facility]) Body height 72 [in_i] 72 [in_i] CHARLENE ([facility]) Diastolic blood pressure 81 mm[Hg] 81 mm[Hg] CHARLENE ([facility]) Body height 72 [in_i] 72 [in_i] CHARLENE ([facility]) Body mass index (BMI) [Ratio] 22 kg/m2 22 kg/ m2 CHARLENE ([facility]) Systolic blood pressure 123 mm[Hg] 123 mm[Hg] A [facility] ([facility]) Body weight 2592 [oz_av] 2592 [oz_av] CHARLENE ([facility]) Diastolic blood pressure 81 mm[Hg] 81 mm[Hg] CHARLENE ([facility]) Body height 72 [in_i] 72 [in_i] CHARLENE ([facility]) Body mass index (BMI) [Ratio] 22 kg/m2 22 kg/ m2 CHARLENE ([facility]) Systolic blood pressure 123 mm[Hg] 123 mm[Hg] A [facility] ([facility]) Body weight 2592 [oz_av] 2592 [oz_av] CHARLENE ([facility]) Diastolic blood pressure 81 mm[Hg] 81 mm[Hg] CHARLENE ([facility]) Body height 72 [in_i] 72 [in_i] CHARLENE ([facility]) Systolic blood pressure 123 mm[Hg] 123 mm[Hg] A THENA ([facility]) Body weight 2592 [oz_av] 2592 [oz_av] CHARLENE ([facility]) Body mass index (BMI) [Ratio] 22 kg/m2 22 kg/ m2 CHARLENE ([facility]) Diastolic blood pressure 81 mm[Hg] 81 mm[Hg] CHARLENE ([facility]) Body height 72 [in_i] 72 [in_i] CHARLENE ([facility]) Body mass index (BMI) [Ratio] 22 kg/m2 22 kg/ m2 CHARLENE ([facility]) Systolic blood pressure 123 mm[Hg] 123 mm[Hg] A THENA ([facility]) Body weight 2592 [oz_av] 2592 [oz_av] CHARLENE ([facility]) Diastolic blood pressure 81 mm[Hg] 81 mm[Hg] CHARLENE ([facility]) Body height 72 [in_i] 72 [in_i] CHARLENE ([facility]) Body mass index (BMI) [Ratio] 22 kg/m2 22 kg/ m2 CHARLENE ([facility]) Systolic blood pressure 123 mm[Hg] 123 mm[Hg] A THENA ([facility]) Body weight 2592 [oz_av] 2592 [oz_av] CHARLENE ([facility]) Diastolic blood pressure 81 mm[Hg] 81 mm[Hg] CHARLENE ([facility]) Body height 72 [in_i] 72 [in_i] CHARLENE ([facility]) Body mass index (BMI) [Ratio] 22 kg/m2 22 kg/ m2 CHARLENE ([facility]) Systolic blood pressure 123 mm[Hg] 123 mm[Hg] A THENA ([facility]) Body weight 2592 [oz_av] 2592 [oz_av] CHARLENE ([facility]) Diastolic blood pressure 81 mm[Hg] 81 mm[Hg] CHARLENE ([facility]) Body height 72 [in_i] 72 [in_i] CHARLENE ([facility]) Body mass index (BMI) [Ratio] 22 kg/m2 22 kg/ m2 CHARLENE ([facility]) Systolic blood pressure 123 mm[Hg] 123 mm[Hg] A THENA ([facility]) Body weight 2592 [oz_av] 2592 [oz_av] CHARLENE ([facility]) Diastolic blood pressure 81 mm[Hg] 81 mm[Hg] CHARLENE ([facility]) Body height 72 [in_i] 72 [in_i] CHARLENE ([facility]) Body mass index (BMI) [Ratio] 22 kg/m2 22 kg/ m2 CHARLENE ([facility]) Systolic blood pressure 123 mm[Hg] 123 mm[Hg] A THENA ([facility]) Body weight 2592 [oz_av] 2592 [oz_av] CHARLENE ([facility]) Body weight 155.2 [lb_av] 155.2 [lb_av] eCW1 ([facility]) Body height [in_i] eCW1 ([facility]) Body mass index (BMI) [Ratio] 21.05 kg/m2 21.05 kg/m2 eCW1 ([facility]) Heart rate 57 /min 57 /min eCW1 ([facility]) Respiratory rate 18 /min 18 /min eCW1 ([facility]) Body temperature 98.2 [degF] 98.2 [degF] eCW1 ( [facility]) Systolic blood pressure 117 mm[Hg] 117 mm[Hg] e CW1 ([facility]) Diastolic blood pressure 65 mm[Hg] 65 mm[Hg] eCW1 ([facility]) Body weight 2552 [oz_av] 2552 [oz_av] CHARLENE ([facility]) Systolic blood pressure 134 mm[Hg] 134 mm[Hg] A THENA ([facility]) Body mass index (BMI) [Ratio] 21.6 kg/m2 21.6 k g/m2 CHARLENE ([facility]) Diastolic blood pressure 74 mm[Hg] 74 mm[Hg] CHARLENE ([facility]) Body height 72 [in_i] 72 [in_i] CHARLENE ([facility]) Body height 72 [in_i] 72 [in_i] CHARLENE ([facility]) Body mass index (BMI) [Ratio] 21.6 kg/m2 21.6 k g/m2 CHARLENE ([facility]) Systolic blood pressure 134 mm[Hg] 134 mm[Hg] A THENA ([facility]) Body weight 2552 [oz_av] 2552 [oz_av] CHARLENE ([facility]) Diastolic blood pressure 74 mm[Hg] 74 mm[Hg] CHARLENE ([facility]) Diastolic blood pressure 74 mm[Hg] 74 mm[Hg] CHARLENE ([facility]) Body mass index (BMI) [Ratio] 21.6 kg/m2 21.6 k g/m2 CHARLENE ([facility]) Body height 72 [in_i] 72 [in_i] CHARLENE ([facility]) Systolic blood pressure 134 mm[Hg] 134 mm[Hg] A [facility] ([facility]) Body weight 2552 [oz_av] 2552 [oz_av] CHARLENE ([facility]) Body mass index (BMI) [Ratio] 21.6 kg/m2 21.6 k g/m2 CHARLENE ([facility]) Systolic blood pressure 134 mm[Hg] 134 mm[Hg] A [facility] ([facility]) Body weight 2552 [oz_av] 2552 [oz_av] CHARLENE ([facility]) Diastolic blood pressure 74 mm[Hg] 74 mm[Hg] CHARLENE ([facility]) Body height 72 [in_i] 72 [in_i] CHARLENE ([facility]) Body height 72 [in_i] 72 [in_i] CHARLENE ([facility]) Body mass index (BMI) [Ratio] 21.6 kg/m2 21.6 k g/m2 CHARLENE ([facility]) Systolic blood pressure 134 mm[Hg] 134 mm[Hg] A [facility] ([facility]) Body weight 2552 [oz_av] 2552 [oz_av] CHARLENE ([facility]) Diastolic blood pressure 74 mm[Hg] 74 mm[Hg] CHARLENE ([facility]) Systolic blood pressure 134 mm[Hg] 134 mm[Hg] A THENA ([facility]) Body mass index (BMI) [Ratio] 21.6 kg/m2 21.6 k g/m2 CHARLENE ([facility]) Body weight 2552 [oz_av] 2552 [oz_av] CHARLENE ([facility]) Diastolic blood pressure 74 mm[Hg] 74 mm[Hg] CHARLENE ([facility]) Body height 72 [in_i] 72 [in_i] CHARLENE ([facility]) Diastolic blood pressure 74 mm[Hg] 74 mm[Hg] CHARLENE ([facility]) Body height 72 [in_i] 72 [in_i] CHARLENE ([facility]) Body mass index (BMI) [Ratio] 21.6 kg/m2 21.6 k g/m2 CHARLENE ([facility]) Systolic blood pressure 134 mm[Hg] 134 mm[Hg] A EREDA ([facility]) Body weight 2552 [oz_av] 2552 [oz_av] CHARLENE ([facility]) Diastolic blood pressure 74 mm[Hg] 74 mm[Hg] CHARLENE ([facility]) Body height 72 [in_i] 72 [in_i] CHARLENE ([facility]) Body mass index (BMI) [Ratio] 21.6 kg/m2 21.6 k g/m2 CHARLENE ([facility]) Systolic blood pressure 134 mm[Hg] 134 mm[Hg] A REEDA ([facility]) Body weight 2552 [oz_av] 2552 [oz_av] CHARLENE ([facility]) Diastolic blood pressure 74 mm[Hg] 74 mm[Hg] CHARLENE ([facility]) Body height 72 [in_i] 72 [in_i] CHARLENE ([facility]) Body mass index (BMI) [Ratio] 21.6 kg/m2 21.6 k g/m2 CHARLENE ([facility]) Systolic blood pressure 134 mm[Hg] 134 mm[Hg] A REEDA ([facility]) Body weight 2552 [oz_av] 2552 [oz_av] CHARLENE ([facility]) Body weight 155 [lb_av] 155 [lb_av] eCW1 ([facility]) Body height [in_i] eCW1 ([facility]) Body mass index (BMI) [Ratio] 21.02 kg/m2 21.02 kg/m2 eCW1 ([facility]) Heart rate 65 /min 65 /min eCW1 ([facility]) Respiratory rate 18 /min 18 /min eCW1 ([facility]) Body temperature 97.4 [degF] 97.4 [degF] eCW1 ( [facility]) Systolic blood pressure 125 mm[Hg] 125 mm[Hg] e CW1 ([facility]) Diastolic blood pressure 70 mm[Hg] 70 mm[Hg] eCW1 ([facility]) Patient Treatment Plan of Care Planned Activity Planned Date Details Description Data Source (s) sildenafil 100 MG Oral Tablet CHARLENE ([facility]) sennosides, JAIL 8.6 MG Oral Tablet [Senna-Time] CHARLENE ([facility]) Acetaminophen 325 MG / Oxycodone Hydrochloride 5 MG Oral Tablet CHARLENE ([facility]) Omeprazole 20 MG Delayed Release Oral Capsule CHARLENE ([facility]) Ibuprofen 800 MG Oral Tablet CHARLENE ([facility]) gabapentin 300 MG Oral Capsule CHARLENE ([facility]) Doxycycline Monohydrate 100 MG Oral Capsule CHARLENE ([facility]) Cephalexin 500 MG Oral Capsule CHARLENE ([facility]) sildenafil 100 MG Oral Tablet CHARLENE ([facility]) sennosides, JAIL 8.6 MG Oral Tablet [Senna-Time] CHARLENE ([facility]) Acetaminophen 325 MG / Oxycodone Hydrochloride 5 MG Oral Tablet CHARLENE ([facility]) Omeprazole 20 MG Delayed Release Oral Capsule CHARLENE ([facility]) Ibuprofen 800 MG Oral Tablet CHARLENE ([facility]) gabapentin 300 MG Oral Capsule CHARLENE ([facility]) Doxycycline Monohydrate 100 MG Oral Capsule CHARLENE ([facility]) Cephalexin 500 MG Oral Capsule CHARLENE ([facility]) sildenafil 100 MG Oral Tablet CHARLENE ([facility]) sennosides, JAIL 8.6 MG Oral Tablet [Senna-Time] CHARLENE ([facility]) Acetaminophen 325 MG / Oxycodone Hydrochloride 5 MG Oral Tablet CHARLENE ([facility]) Omeprazole 20 MG Delayed Release Oral Capsule CHARLENE ([facility]) Ibuprofen 800 MG Oral Tablet CHARLENE ([facility]) gabapentin 300 MG Oral Capsule CHARLENE ([facility]) Doxycycline Monohydrate 100 MG Oral Capsule CHARLENE ([facility]) Cephalexin 500 MG Oral Capsule CHARLENE ([facility]) sildenafil 100 MG Oral Tablet [facility]LENE ([facility]) Acetaminophen 325 MG / Oxycodone Hydrochloride 5 MG Oral Tablet [facility]LENE ([facility]) Omeprazole 20 MG Delayed Release Oral Capsule CHARLENE ([facility]) Ibuprofen 800 MG Oral Tablet CHARLENE ([facility]) gabapentin 300 MG Oral Capsule CHAR[facility]E ([facility]) Cephalexin 500 MG Oral Capsule CHAR[facility]E ([facility]) sildenafil 100 MG Oral Tablet [facility]E ([facility]) Omeprazole 20 MG Delayed Release Oral Capsule CHARLENE ([facility]) gabapentin 300 MG Oral Capsule CHAR[facility]E ([facility]) sildenafil 100 MG Oral Tablet [facility]E ([facility]) Omeprazole 20 MG Delayed Release Oral Capsule CHARLENE ([facility]) gabapentin 300 MG Oral Capsule CHAR[facility]E ([facility]) sildenafil 100 MG Oral Tablet [facility] ([facility]) Omeprazole 20 MG Delayed Release Oral Capsule CHARLENE ([facility]) gabapentin 300 MG Oral Capsule CHARLENE ([facility]) Omeprazole 20 MG Delayed Release Oral Capsule CHARLENE ([facility]) gabapentin 300 MG Oral Capsule CHARLENE ([facility]) sildenafil 100 MG Oral Tablet CHARLENE ([facility])
[2021-07-25 18:03] LABS: ALBUMIN 4.2 GM/DL (3.2-5.2); ALT/SGPT 24 U/L (12-78); BILIRUBIN,DIRECT 0.3 MG/DL (0.0-0.2); BILIRUBIN,TOTAL 0.8 MG/DL (0.2-1.0); C REACTIVE PROTEIN QUANTITATIV < 0.30 MG/DL (0.00-0.30); LIPASE 50 U/L (73-393); TOTAL PROTEIN 7.4 GM/DL (6.4-8.2)
[2021-07-25 18:19] LABS: ERYTHROCYTE SEDIMENTATION RATE 2 mm/hr (0-15)
[2021-07-25 19:19] VITALS: BP 112/75
--- NOTE | 2021-07-26 14:15 | ECGEPIP ---
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
== END 2021-07-25 19:23 | disposition home or self-care (01) ==
LOC: M ED 09:38
DX: R55 Syncope and collapse (principal); J45.909 Unspecified asthma, uncomplicated; R07.9 Chest pain, unspecified; F17.200 Nicotine dependence, unspecified, uncomplicated; Z88.2 Allergy status to sulfonamides; Z88.1 Allergy status to other antibiotic agents

== ENCOUNTER → 2021-10-20 | Outpatient (CLI) | payer OTHER | LOC: M PAIN 10:00 | PROVIDERS: ATTEND Anesthesiology | DX: M25.511 Pain in right shoulder (principal); M25.512 Pain in left shoulder; M54.2 Cervicalgia; N18.2 Chronic kidney disease, stage 2 (mild); N50.811 Right testicular pain; N50.812 Left testicular pain; F32.A Depression, unspecified; F41.9 Anxiety disorder, unspecified; F17.210 Nicotine dependence, cigarettes, uncomplicated; Z79.899 Other long term (current) drug therapy; Z88.2 Allergy status to sulfonamides; Z88.8 Allergy status to other drugs, medicaments and biological substances ==

== ENCOUNTER → 2022-05-14 | Outpatient (REF) | LOC: M EMP 07:57 | PROVIDERS: ATTEND Family Medicine | DX: Z11.52 Encounter for screening for COVID-19 (principal) ==

== ENCOUNTER → 2022-07-05 | Outpatient (REF) | payer OTHER ==
[~2022-07-05] MED LIST changes: -DOXY-350 PO; +DOXY-444 PO
[2022-07-05 13:41] LABS: ALBUMIN 4.8 G/DL (3.2-5.2); ALT/SGPT 24 U/L (7.0-40); BILIRUBIN,TOTAL 0.7 MG/DL (0.3-1.2); BLOOD UREA NITROGEN 19 MG/DL (9-23); CALCIUM LEVEL 10.2 MG/DL (8.5-10.1); CARBON DIOXIDE LEVEL 27 MMOL/L (20-31); CHLORIDE LEVEL 103 MMOL/L (98-107); CREATININE FOR GFR 1.41 MG/DL (0.70-1.30); GLOMERULAR FILTRATION RATE > 60.0 (>60); GLUCOSE, FASTING 86 MG/DL (60-100); POTASSIUM SERUM 4.6 MMOL/L (3.5-5.1); SODIUM LEVEL 140 MMOL/L (136-145); TOTAL PROTEIN 7.2 G/DL (5.7-8.2)
[2022-07-05 13:49] LABS: HEMOGLOBIN A1c 4.8 % (4.0-6.0)
== END ==
LOC: M LAB REF 11:43
PROVIDERS: ATTEND Family Medicine Addiction Medicine
DX: R73.9 Hyperglycemia, unspecified (principal)

== ENCOUNTER → 2022-09-20 | Outpatient (REF) | payer OTHER ==
[2022-09-20 13:50] LABS: APPEARANCE, URINE MANUAL CLEAR (CLEAR); BILIRUBIN, URINE MANUAL NEGATIVE (NEGATIVE); BLOOD URINE MANUAL NEGATIVE (NEGATIVE); COLOR, URINE MANUAL YELLOW (YELLOW); GLUCOSE, URINE (UA) MANUAL NEGATIVE (NEGATIVE); KETONE, URINE MANUAL NEGATIVE (NEGATIVE); LEUKOCYTE ESTERASE, URINE MAN NEGATIVE (NEGATIVE); NITRITE, URINE MANUAL NEGATIVE (NEGATIVE); PROTEIN, URINE MANUAL NEGATIVE (NEGATIVE); SPECIFIC GRAVITY,URINE MANUAL 1.015 (1.002-1.035); UROBILINOGEN, URINE MANUAL NORMAL (NORMAL)
[2022-09-20 15:52] LABS: GC DNA AMPLIFICATION NEGATIVE (NEGATIVE)
== END ==
LOC: M LAB REF 12:37
PROVIDERS: ATTEND Physician Assistant
DX: Z11.3 Encounter for screening for infections with a predominantly sexual mode of transmission (principal)

== ENCOUNTER → 2023-01-18 | Outpatient (REF) | payer OTHER ==
[2023-01-18 13:57] LABS: BLOOD UREA NITROGEN 21 MG/DL (9-23); CALCIUM LEVEL 9.6 MG/DL (8.5-10.1); CARBON DIOXIDE LEVEL 28 MMOL/L (20-31); CHLORIDE LEVEL 105 MMOL/L (98-107); CREATININE FOR GFR 1.19 MG/DL (0.70-1.30); GLOMERULAR FILTRATION RATE > 60.0 (>60); GLUCOSE, FASTING 83 MG/DL (60-100); POTASSIUM SERUM 4.5 MMOL/L (3.5-5.1); SODIUM LEVEL 140 MMOL/L (136-145)
== END ==
LOC: M LAB REF 12:32
PROVIDERS: ATTEND Family Medicine Addiction Medicine
DX: N18.9 Chronic kidney disease, unspecified (principal)

== ENCOUNTER → 2023-10-14 | Outpatient (REF) ==
[~2023-10-14] MED LIST changes: -GABA-283 PO; +GABA-284 PO; +SENN-111 PO; -SENN18TA PO
[2023-10-14 10:05] LABS: RSV AMPLIFICATION NEGATIVE (NEGATIVE)
== END ==
LOC: M EMP 08:58
PROVIDERS: ATTEND Family Medicine
DX: Z11.52 Encounter for screening for COVID-19 (principal)

== ENCOUNTER → 2024-09-11 | Outpatient (REF) | payer OTHER ==
[~2024-09-11] MED LIST changes: +DOXY-440 PO; -DOXY-444 PO; -SENN-111 PO; +SENN-165 PO
== END ==
LOC: M LAB REF 12:54
PROVIDERS: ATTEND Physician Assistant Medical
DX: B34.9 Viral infection, unspecified (principal)